=== PATIENT | male | born 1960 | race Caucasian/White ===

== ENCOUNTER 2017-11-11 07:16 | Emergency (ER) | payer OTHER, SELFPAY ==
[2017-11-11 07:18] VITALS: BP 167/97; PULSE 61; RESP 15; TEMP 36.2; O2SAT 98; BMI 25.7
--- NOTE | 2017-11-11 07:31 | CT_ITS ---
STUDY: CT BRAIN WITHOUT CONTRAST REASON FOR EXAM: Male, 56 years old. Headaches. Photophobia with nausea and vomiting. History of migraines. RADIATION DOSAGE (If Supplied By Facility): CTDIvol = ( 60.81 ) mGy, DLP = ( 1135.5 ) mGycm TECHNIQUE: Transaxial CT imaging of the brain was performed without administration of intravenous contrast material. Individualized dose optimization techniques were used for this CT. COMPARISON: None. FINDINGS: Normal soft tissue structures. Normal calvarium. Normal size ventricles and extra-axial spaces for the patient's age. Normal white matter tracts of the cerebral hemispheres. Normal basal ganglia and thalami. Normal brainstem. Normal cerebellum. There is no intracranial hemorrhage. There are no findings of an acute ischemic infarction. Atherosclerotic plaques in the cavernous portions of the internal carotid arteries bilaterally. Mild mucosal thickening of maxillary sinuses bilaterally. Partial opacification of the ethmoid sinuses. CT/Brain/Head without Contrast IMPRESSION: Sinusitis. Electronically Signed: Ricky Farfan MD at 8:37 EDT Tel [phone], Service support ,
[2017-11-11 07:52] LABS: Absolute Lymphocyte Count 1.03 X10^3/ul (0.83-4.51); Absolute Neutrophil Count 1.3 X10^3/uL (2.0-7.7); Basophil# 0.01 X10^3/uL; Basophil% 0.3 % (0-1); Eosinophils% 3.4 % (0-5); Hematocrit 39.5 % (40-54); Hemoglobin 13.4 g/dl (13.0-16.5); Lymphocyte # 1.03 X10^3/ul (4.0); Lymphocyte % 35.2 % (19-41); Mean Corp Hgb Conc 33.9 g/gl (32-36); Mean Corpuscular Volume 88.6 fL (80-94); Mean Platelet Vol. 9.7 fl (6.2-12.0); Monocyte# 0.46 X10^3/uL; Monocyte% 15.7 % (0-10); Neutrophil # 1.32 X10^3/uL (2.7-7.7); Neutrophil % 45.1 % (47-70); Platelet Count 120 K/mm3 (150-450); RBC Distribution Width CV 12.7 % (11.6-14.6); RBC Distribution Width SD 40.6 fl (35.1-43.9); Red Blood Count 4.46 M/mm3 (4.6-6.2); White Blood Count 2.9 K/mm3 (4.4-11.0)
[2017-11-11 07:53] LABS: POSITIVE COUNT NO; POSITIVE DIFFERENTIAL NO; POSITIVE MORPHOLOGY NO
[2017-11-11 08:01] LABS: Anion Gap 4 (5-15); BUN 13 mg/dL (7-18); BUN/Creat Ratio 12.1 RATIO (10-20); Calcium,Total 8.7 mg/dL (8.5-10.1); Chloride 105 mmol/L (98-107); Creatinine, Serum 1.07 mg/dL (0.70-1.30); EST Glomerular Filtration Rate 76 mL/min (>60); Est Glom Filt Rate - Afr Amer 91 mL/min (>60); Estimated Creatinine Clearance 88.56 ml/min; Glucose 99 mg/dL (74-106); Potassium 4.1 mmol/L (3.5-5.1); Sodium Level 139 mmol/L (136-145)
--- NOTE | 2017-11-11 09:02 | ED.DCSUM_ITS ---
- ER Visit Summary Date of Service: 11/11/17 Chief Complaint: Severe right sided head pain with neck pain and photophobia History of Present Illness: The patient is a 56 M who presents with severe right -sided headache. Light exacerbates his pain. There is no difference with change in position. He denies double vision, blurred vision loss of vision. He denies rhinorrhea, earache or sore throat presently. He was prescribed azithromycin 1 week ago for sore throat. He states he was ill several days before that. He denies rash. He does complain of neck pain and stiffness. He denies any cardiac respiratory symptoms. He does complain of nausea and had vomiting this morning. He denies dysuria, frequency, urgency hematuria. He denies any motor or sensory deficit. He states his balance is off. He states it is not lightheadedness but his balance is off. There is no family history of subarachnoid hemorrhage. Physical Examination: Blood pressure is elevated 148/80. Head is atraumatic normocephalic. Pupils are equal round reactive. Extraocular muscles are intact. Optic exam reveals no papilledema. TMs are pearly white with landmarks noted. Nares patent with no drainage. He reports tenderness to palpation of the right frontal and maxillary sinus. Posterior pharynx without erythema or exudate. Uvula is midline. There is no dysphonia or dysphasia. Trachea is midline. There is no stridor with auscultation of the neck. There is no nuchal rigidity or meningeal findings. Heart is regular without murmur, gallop or rub. S1 and S2 are normal. Lungs are clear to auscultation with good movement of air bilaterally. Abdomen is soft nontender. Patient is alert and oriented ?3. Motor is 5 over 5. Sensory is intact. DTRs are symmetric with no clonus or Babinski sign. Cranial 2 through 12 are intact. Cerebellar testing is normal. Gait was observed and normal. Test Results: White count is 2.9 thousand with no shift. Electronic panel is normal. CT of the head per my review reveals trivial amount of fluid in the left maxillary sinus. There is no acute process noted. Formal radiology review reveals no contraindication to lumbar puncture. SF results are unremarkable. Protein and glucose are normal. There is 1 white cell with no red cells. Emergency Department Course and Treatment: To evaluate patient's headache which is the worst she has had. The fact he complains of photophobia and no improvement with appropriate treatment a CT of the head was obtained. Also obtain baseline blood work i.e. CBC and BMP. Treatment Plan: Since patient CAT scan has no contra indication to spinal tap he was explained the benefits of spinal tap. He requested to speak with his was a position. After given opportunity ask questions and speak with his he signed consent. Spinal fluid analysis was unremarkable. He was treated with 25 mg of Benadryl IV push, 30 minutes Toradol IV push and 10 mg of Reglan IV push. I was informed at 1310 that he feels markedly better would like to go home. Disposition: To home in stable improved condition Impression: Acute severe cephalgia secondary to migraine This note was generated with [employer] dictation software. It may contain incorrect words, spelling, and punctuation that were not noted in review of the chart prior to signing ED Disposition - Plan for ED Patient: Disposition: Home or Assisted Living Chief Complaint: Headache Referrals: Glen Irvin MD [Primary Care Provider] - As Needed
--- NOTE | 2017-11-11 10:40 | RAD_ITS ---
PROCEDURE: Fluoroscopic guided Lumbar Puncture. DATE: November 11, 2017. CLINICAL INDICATION: Headaches and neck stiffness. PHYSICIAN: Ricky Farfan M.D. MEDICATIONS: 1% lidocaine administered subcutaneously for local anesthesia. ACCESS SITE: Lower posterior back. NEEDLE: 22-gauge spinal needle. SPECIMEN: Approximately 10 mL clear]CSF fluid. FLUOROSCOPY TIME (if supplied): (1:42) minutes/seconds COMPLICATIONS: None immediate. The risks, benefits, and alternatives to the procedure were explained to the patient. The specific risks of bleeding, infection, and neurovascular injury were detailed and accepted. Witnessed informed consent was obtained. The patient was placed on the fluoroscopic table in the prone position. The level for needle entry was determined and marked. The overlying skin was cleaned and prepped in the usual sterile fashion. 2% lidocaine was administered subcutaneously for local anesthesia. Under fluoroscopic guidance a 22-gauge spinal needle was advanced. The thecal sac was entered at the L3- L4 vertebral level. The inner stylet was removed. There was spontaneous flow of clear CSF fluid. The patient was placed in a reversed Trendelenburg position. Approximately 10 mL of cerebrospinal fluid was collected using gravity. The specimen was collected and submitted to the laboratory for further evaluation. The needle was withdrawn,. Hemostasis was achieved and a sterile dressing placed. The patient tolerated the procedure well without any immediate complications. The patient was placed supine with head elevated and returned to the floor in stable condition. RAD/Fluoro Guided Lumbar Puncture IMPRESSION: Successful fluoroscopic-guided lumbar puncture. Electronically Signed: Ricky Farfan MD at 11:32 EDT Tel [phone], Service support ,
[2017-11-11 11:40] LABS: Body Fluid Polynuclear WBC # 0.001 10^3/uL; Total Cell Count CSF 0.001 10^3/uL (0.000-0.000); White Count, CSF 0.001 10^3/uL (0.000-0.000)
[2017-11-11 12:02] LABS: Appearance CSF (character) CLEAR (Clear); Auto B Fluid Analyzer BKGD Ct COUNTS W/IN LIMITS (W/IN LIMITS); CSF Color COLORLESS (Colorless); Tested Tube # 3
[2017-11-11 12:03] LABS: Body Fluid QC Type(s) BF1Q; RBC Count, Spinal Fluid 0 /mm-3 (None seen)
[2017-11-11] MEDS: DiphenhydrAMINE 50 MG/ML Syringe 25 MG IV (12:29)
[2017-11-11] MEDS: Ketorolac 30 MG/ML Syringe IV (12:29)
[2017-11-11] MEDS: Metoclopramide 10 MG/2 ML Vial IV (12:29)
--- NOTE | 2017-11-11 13:19 | ED.VISSUMM ---
- ER Visit Summary Date of Service: 11/11/17 Chief Complaint: [] History of Present Illness: The patient is a 56 M [] Physical Examination: [] Test Results: [] Emergency Department Course and Treatment: [] Treatment Plan: [] Disposition: [] Impression: [] This note was generated with [employer] dictation software. It may contain incorrect words, spelling, and punctuation that were not noted in review of the chart prior to signing ED Disposition - Plan for ED Patient: Disposition: Home or Assisted Living Chief Complaint: Headache Instructions: ED Headache Migraine Referrals: Glen Irvin MD [Primary Care Provider] - As Needed
[2017-11-11 13:22] LABS: Glucose Spinal Fluid 49 mg/dL (40-75)
[2017-11-11 13:34] VITALS: BP 141/88; PULSE 63; RESP 14; O2SAT 98
[2017-11-11 14:40] LABS: Pathologist Review Reviewed
== END 2017-11-11 13:35 | disposition home or self-care (01) ==
PROVIDERS: Emergency Provider Emergency Medicine; PCP Family Medicine
DX: G43.909 Migraine, unspecified, not intractable, without status migrainosus (principal); B34.9 Viral infection, unspecified
CPT/HCPCS: 62270; 70450; 77003; 80048; 82945; 84157; 85025; 87070; 87205; 89050; 89051; 96374; 96375; 99283; J7030; A4216

== ENCOUNTER 2017-11-12 15:34 | Emergency (ER) | payer OTHER, SELFPAY ==
[2017-11-12 15:34] VITALS: BP 139/87; PULSE 62; RESP 16; O2SAT 97
[2017-11-12 15:35] VITALS: BP 140/78; PULSE 64; RESP 14; TEMP 36.8; O2SAT 96; BMI 26.3
[2017-11-12] MEDS: Ketorolac 30 MG/ML Syringe IV (16:17)
[2017-11-12] MEDS: proMETHazine 25 MG/ML Syringe 12.5 MG IV (16:17)
[2017-11-12] MEDS: DiphenhydrAMINE 50 MG/ML Syringe 25 MG IV (16:17)
[2017-11-12 17:15] VITALS: BP 134/86; PULSE 59; RESP 16; O2SAT 97
--- NOTE | 2017-11-12 17:18 | ED.DCSUM_ITS ---
- ER Visit Summary Date of Service: 11/12/17 Chief Complaint: Acute cephalgia History of Present Illness: The patient is a 56 M known history of migraine headaches. He was seen and treated in the ER yesterday at that time had a negative CAT scan of his brain and a negative lumbar puncture study. He denies any recent trauma is not on any blood thinners. He denies being positional to the headaches no different than it was before the lumbar puncture. He has had some nausea or vomiting with it. It was a gradual onset on Thursday is basically been consistent except did improve yesterday before he went home and came back worse he denies any sinus congestion. Physical Examination: Well-appearing middle-age male. Vital signs are stable afebrile. HEENT exam dry reactive light. No signs of trauma. Extra motions are intact. No facial trauma. No swelling. Neck nontender no lymphadenopathy. Lungs clear to auscultation. Heart regular rhythm no murmur. Abdomen soft nontender. He is moving all 4 extremities. Neurovascular intact. Out of 5 mortgage funder strength. Neurologically he is awake and alert. No focal motor deficits. No facial droop. Normal speech. Test Results: I reviewed the patient's tests from yesterday. They are unremarkable. I do not feel he needs further testing. He was treated with IV fluids, Toradol, Benadryl and Phenergan. On repeat exam at 1715 he is doing better. I discussion with both him and his who is a physician here at the hospital. They are comfortable with no further testing at this time. He has Toradol prescription at home and also Maxalt. He will also be given a prescription to try Imitrex which is never used in the past. Emergency Department Course and Treatment: [] Treatment Plan: [] Disposition: Discharge to home Impression: Acute cephalgia History of migraine headaches This note was generated with [employer] dictation software. It may contain incorrect words, spelling, and punctuation that were not noted in review of the chart prior to signing ED Disposition - Plan for ED Patient: Chief Complaint: Headache Referrals: Glen Irvin MD [Primary Care Provider] -
--- NOTE | 2017-11-12 17:18 | ED.DEP ---
ED Disposition - Plan for ED Patient: Disposition: Home or Assisted Living Chief Complaint: Headache Instructions: ED Cephalgia Unspecified Prescriptions: Sumatriptan Succinate [Imitrex] 25 mg PO Q4H PRN PRN #10 tab PRN Reason: Headache Referrals: Glen Irvin MD [Primary Care Provider] - 1-2 Days if not improving Additional Instructions: Plenty of fluids and rest. Follow-up your primary care physician if not improving or return to ER feeling worse. May use your Toradol and/or Imitrex or Maxalt to try to relieve her headaches if it returns.
== END 2017-11-12 17:25 | disposition home or self-care (01) ==
PROVIDERS: Emergency Provider Emergency Medicine; PCP Family Medicine
DX: R51 Headache (principal); E03.9 Hypothyroidism, unspecified; Z86.69 Personal history of other diseases of the nervous system and sense organs
CPT/HCPCS: 96374; 96375; 99284; J7030; A4216

== ENCOUNTER → 2019-09-30 10:44 | Outpatient (CLI) | payer OTHER, SELFPAY ==
[2019-09-30 11:49] LABS: Absolute Lymphocyte Count 1.79 X10^3/uL (0.83-4.51); Absolute Neutrophil Count 4.4 X10^3/uL (2.0-7.7); Basophil# 0.03 X10^3/uL; Basophil% 0.4 % (0-1); Eosinophil# 0.22 X10^3/uL; Eosinophils% 3.1 % (0-5); Hematocrit 41.9 % (40-54); Hemoglobin 14.3 g/dL (13.0-16.5); Lymphocyte # 1.79 X10^3/ul (4.0); Lymphocyte % 24.9 % (19-41); Mean Corp Hgb Conc 34.1 g/dL (32-36); Mean Corpuscular Hgb 31.4 pg (27.0-32.0); Mean Corpuscular Volume 91.9 fL (80-94); Mean Platelet Vol. 9.7 fl (6.2-12.0); Monocyte# 0.68 X10^3/uL; Monocyte% 9.5 % (0-10); NRBC Flagged by Analyzer 0 % (0-5); Neutrophil # 4.44 X10^3/uL (2.7-7.7); Neutrophil % 61.8 % (47-70); Platelet Count 223 K/mm3 (150-450); RBC Distribution Width CV 12.2 % (11.6-14.6); RBC Distribution Width SD 40.9 fl (35.1-43.9); Red Blood Count 4.56 M/mm3 (4.6-6.2); White Blood Count 7.2 K/mm3 (4.4-11.0)
[2019-09-30 12:12] LABS: AST(SGOT) 41 U/L (15-37); Alanine Aminotransfer ALT/SGPT 72 U/L (16-61); Alkaline Phosphatase 90 U/L (45-117); Anion Gap 6 (5-15); BUN 16 mg/dL (7-18); BUN/Creat Ratio 14.8 RATIO (10-20); Calcium,Total 8.9 mg/dL (8.5-10.1); Chloride 104 mmol/L (98-107); Creatinine, Serum 1.08 mg/dL (0.70-1.30); EST Glomerular Filtration Rate 74 mL/min (>60); Est Glom Filt Rate - Afr Amer 90 mL/min (>60); Globulin 3.9 g/dL (2.2-4.2); Glucose 84 mg/dL (74-106); PSA,Total- Diagnostic 0.45 ng/mL (0.0-4.0); Potassium 4.2 mmol/L (3.5-5.1); Protein, Total 7.9 g/dL (6.4-8.2); Sodium Level 139 mmol/L (136-145); Thyroid Stim Hormone (TSH) 3.35 uIU/mL (0.358-3.74)
[2019-10-03 04:06] LABS: Alternaria alternata <0.10 kU/L (Class 0); Bermuda Grass <0.10 kU/L (Class 0); Bluegrass, Kentucky <0.10 kU/L (Class 0); Cat Hair/Dander, Standard <0.10 kU/L (Class 0); D farinae Mite 4.63 kU/L (Class IV); D pteronyssinus 2.81 kU/L (Class III); Dog Epithelia <0.10 kU/L (Class 0); Elm, American White <0.10 kU/L (Class 0); Oak, White <0.10 kU/L (Class 0); Plantain, English <0.10 kU/L (Class 0); Ragweed, Short/Common <0.10 kU/L (Class 0)
[2019-10-03 11:54] LABS: Mouse Urine <0.10 kU/L (Class 0)
== END ==
PROVIDERS: PCP Family Medicine Geriatric Medicine; Referring Provider Family Medicine Geriatric Medicine; Visit Provider Family Medicine Geriatric Medicine
DX: N40.0 Benign prostatic hyperplasia without lower urinary tract symptoms (principal); T78.40XA Allergy, unspecified, initial encounter; R53.83 Other fatigue
CPT/HCPCS: 36415; 80053; 84153; 84443; 85025; 86003

== ENCOUNTER 2020-01-13 10:14 | Emergency (ER) | payer OTHER, SELFPAY ==
[2020-01-13 10:15] VITALS: BP 146/58; PULSE 75; RESP 17; TEMP 36.7; O2SAT 96; BMI 27.8
--- NOTE | 2020-01-13 10:47 | ED.VIS.GEN ---
History of Present Illness Chief Complaint: General Illness Narrative: Patient is a 59-year-old male with a past medical history of hypothyroidism who presents to the emergency department for generalized body aches, sore throat over the past 3 to 4 days. He denies known sick contacts. He was concerned about coronavirus. States he feels like he has the flu but has never had this in January. He does have summertime allergies and has some congestion which is no worse than normal. No significant cough or shortness of breath. No chest pain. No ear pain. Has not had any rashes. He does have chronic diarrhea which is at its baseline currently. No urinary symptoms. He has been mildly nauseous but has not been vomiting. He states that he breaks out into cold sweats at times. He has not taken his temperature. He has been treating himself with Motrin for the body aches. He has not taken this today. He does not know of any sick contacts although his does work in the hospital. Past Medical History - Allergies and Home Meds Allergies/Adverse Reactions: Allergies Corticosteroids (Glucocorticoids) Adverse Reaction (Verified 01/13/20 10:14) Other Primary Care Physician: Mk Singh Chi, MD [Primary Care Provider] - Prior records reviewed: Yes Past Medical History: - - Hypothyroidism, seasonal allergies Smoking Status: Never smoker Review of Systems All systems negative except as indicated General: Reports: Chills, Fever - Subjective, Sweats Eyes: Denies: Visual changes - bilaterally, Diplopia ENT: Reports: Sore throat. Denies: Bilateral ear pain, Rhinorrhea Cardiovascular: Denies: Chest pain, Palpitations Respiratory: Denies: Dyspnea, Cough, Dyspnea on exertion Gastrointestinal: Reports: Nausea. Denies: Abdominal pain, Vomiting, Diarrhea, Melena, Hematochezia Genitourinary: Denies: Dysuria, Hematuria, Frequency Musculoskeletal: Denies: Back pain, Extremity Pain Skin: Denies: Rash, Wounds Neurological: Reports: Headache. Denies: Weakness, Numbness Physical Exam Vital Signs/Narrative: Vital Signs Temp Pulse Resp BP Pulse Ox 01/13/20 10:15 98.0 F 75 17 146/58 H 96 Inital Vital Signs reviewed: Yes General: Well nourished, Well developed, No Acute Distress Head: Normocephalic, Atraumatic Eyes: Perrl, EOMI ENT: Moist mucous membranes, No rhinorrhea, - - Posterior oropharynx is erythematous. No oral lesions or swelling present. No lymphadenopathy on external exam. S palpated. Neck: Supple, Nontender Cardiovascular: Regular rate, Regular rhythm, No murmurs Respiratory: No distress, CTA bilaterally, Chest nontender Abdomen: Soft, Nontender, Nondistended, Normal bowel sounds Back: Nontender, Normal Inspection Extremities: Nontender, No edema Skin: Normal color, No rash Neurological: Alert, Oriented x3, Cranial nerves II-XII grossly intact, Normal Strength, Normal Sensation Psychological: Normal affect, Normal Mood Diagnostic/Tx/Re-eval - Medical Decision Making Patient presents the emerge department for body aches, chills and subjective fevers. He has a mild headache with a sore throat. No neck pain or stiffness. Given the what sounds like rigors will check basic lab work along with blood cultures. Most likely viral exanthem. Will check coronavirus but given the history of sore throat will check a rapid strep test. He otherwise appears nontoxic. Vital signs are within normal limits. Patient's rapid strep test was negative. Coronavirus test is pending. Will discharge home at this time as he is well-appearing. Will contact if results are positive. He understands he needs to quarantine until results are back. Otherwise lab work did not reveal any significant acute abnormality. His liver enzymes are very mildly elevated. Did discuss this with him which he was aware of previously. He states he has had fatty liver disease before. At this time will discharge home in stable condition. Most likely viral symptoms causing his chills and sore throat. He needs to follow-up with his PCP. If he develops any chest pain, shortness of breath difficulty swallowing or breathing he needs to return to the emergency department immediately. He understands and is agreeable with this plan. ED Disposition - Plan for ED Patient: Disposition: Home or Assisted Living Diagnosis: Sore throat, Chills (without fever), Headache Instructions: ED Pharyngitis Viral, Self-Care for Headaches Referrals: Mk Singh Chi, MD [Primary Care Provider] - 2 Days
[2020-01-13 11:23] LABS: Absolute Lymphocyte Count 1.54 X10^3/uL (0.83-4.51); Basophil# 0.03 X10^3/uL; Basophil% 0.5 % (0-1); Eosinophil# 0.25 X10^3/uL; Eosinophils% 3.8 % (0-5); Hematocrit 42.5 % (40-54); Hemoglobin 14.1 g/dL (13.0-16.5); Lymphocyte # 1.54 X10^3/ul (4.0); Lymphocyte % 23.4 % (19-41); Mean Corp Hgb Conc 33.2 g/dL (32-36); Mean Corpuscular Hgb 30.9 pg (27.0-32.0); Mean Corpuscular Volume 93.2 fL (80-94); Mean Platelet Vol. 9.7 fl (6.2-12.0); Monocyte# 0.77 X10^3/uL; Monocyte% 11.7 % (0-10); NRBC Flagged by Analyzer 0 % (0-5); Neutrophil # 3.96 X10^3/uL (2.7-7.7); Neutrophil % 60.1 % (47-70); Platelet Count 219 K/mm3 (150-450); RBC Distribution Width CV 12.4 % (11.6-14.6); RBC Distribution Width SD 42.5 fl (35.1-43.9); Red Blood Count 4.56 M/mm3 (4.6-6.2); White Blood Count 6.6 K/mm3 (4.4-11.0)
[2020-01-13 11:38] LABS: ALB/GLOB Ratio 0.9 RATIO (0.9-2.4); AST(SGOT) 55 U/L (15-37); Alanine Aminotransfer ALT/SGPT 155 U/L (16-61); Albumin, Serum 3.8 g/dL (3.2-5.0); Alkaline Phosphatase 85 U/L (45-117); Anion Gap 6 (5-15); BUN 17 mg/dL (7-18); BUN/Creat Ratio 15.3 RATIO (10-20); Calcium,Total 8.8 mg/dL (8.5-10.1); Chloride 104 mmol/L (98-107); Creatinine, Serum 1.11 mg/dL (0.70-1.30); EST Glomerular Filtration Rate 72 mL/min (>60); Est Glom Filt Rate - Afr Amer 87 mL/min (>60); Estimated Creatinine Clearance 82.28 ml/min; Globulin 4.2 g/dL (2.2-4.2); Glucose 122 mg/dL (74-106); Potassium 4.1 mmol/L (3.5-5.1); Sodium Level 138 mmol/L (136-145)
[2020-01-13 12:11] LABS: Lactic Acid 1.5 mmol/L (0.4-1.9)
[2020-01-13 12:50] VITALS: BP 121/87; PULSE 60; RESP 16; O2SAT 97
== END 2020-01-13 12:52 | disposition home or self-care (01) ==
PROVIDERS: Emergency Provider Emergency Medicine; PCP Family Medicine Geriatric Medicine
DX: J02.9 Acute pharyngitis, unspecified (principal); R68.83 Chills (without fever); R51 Headache; E03.9 Hypothyroidism, unspecified
CPT/HCPCS: 80053; 83605; 85025; 87040; 87077; 87635; 87880; 99282; G2023; A4216; U0003

== ENCOUNTER → 2020-01-19 15:35 | Outpatient (CLI) | payer OTHER, SELFPAY ==
[2020-01-13 10:15] VITALS: BMI 27.8
[2020-01-27 03:06] LABS: Lyme IgG P18 Ab Absent (.); Lyme IgG P23 Ab Absent (.); Lyme IgG P28 Ab Absent (.); Lyme IgG P30 Ab Absent (.); Lyme IgG P39 Ab Absent (.); Lyme IgG P41 Ab Absent (.); Lyme IgG P45 Ab Absent (.); Lyme IgG P58 Ab Absent (.); Lyme IgG P66 Ab Absent (.); Lyme IgG P93 Ab Absent (.); Lyme IgM P23 Ab Absent (.); Lyme IgM P39 Ab Absent (.); Lyme IgM P41 Ab Absent (.)
[2020-01-27 03:46] LABS: Lyme IgG WB Interpretation Negative (.); Lyme IgM WB Interpretation Negative (.)
== END ==
PROVIDERS: PCP Family Medicine Geriatric Medicine; Visit Provider Family Medicine Geriatric Medicine
DX: A69.20 Lyme disease, unspecified (principal)
CPT/HCPCS: 36415; 86617

== ENCOUNTER → 2020-02-20 09:00 | Outpatient (CLI) | payer OTHER, SELFPAY ==
[2020-02-05 07:23] VITALS: BMI 27.6
== END ==
PROVIDERS: PCP Family Medicine Geriatric Medicine; Referring Provider Internal Medicine Critical Care Medicine; Visit Provider Internal Medicine Critical Care Medicine
DX: Z46.89 Encounter for fitting and adjustment of other specified devices (principal)
CPT/HCPCS: 98960; G0463

== ENCOUNTER → 2020-03-01 20:24 | Outpatient (CLI) | payer OTHER, SELFPAY ==
[2020-02-05 07:23] VITALS: BMI 27.6
== END ==
PROVIDERS: PCP Family Medicine Geriatric Medicine; Visit Provider Internal Medicine Critical Care Medicine
DX: G47.33 Obstructive sleep apnea (adult) (pediatric) (principal)
CPT/HCPCS: 95811

== ENCOUNTER → 2020-05-16 11:48 | Outpatient (CLI) | payer OTHER, SELFPAY ==
[2020-05-16 11:40] VITALS: BMI 27.6
[2020-05-16 12:15] LABS: Absolute Neutrophil Count 3.2 X10^3/uL (2.0-7.7); Basophil# 0.02 X10^3/uL; Basophil% 0.3 % (0-1); Eosinophil# 0.23 X10^3/uL; Hematocrit 40.3 % (40-54); Hemoglobin 13.6 g/dL (13.0-16.5); Mean Corp Hgb Conc 33.7 g/dL (32-36); Mean Corpuscular Hgb 31.3 pg (27.0-32.0); Mean Corpuscular Volume 92.6 fL (80-94); Mean Platelet Vol. 9.3 fl (6.2-12.0); Monocyte# 0.66 X10^3/uL; Monocyte% 11.5 % (0-10); NRBC Flagged by Analyzer 0 % (0-5); Neutrophil # 3.19 X10^3/uL (2.7-7.7); Neutrophil % 55.9 % (47-70); Platelet Count 196 K/mm3 (150-450); RBC Distribution Width SD 41.1 fl (35.1-43.9); Red Blood Count 4.35 M/mm3 (4.6-6.2); White Blood Count 5.7 K/mm3 (4.4-11.0)
[2020-05-16 12:29] LABS: ALB/GLOB Ratio 0.9 RATIO (0.9-2.4); AST(SGOT) 37 U/L (15-37); Alanine Aminotransfer ALT/SGPT 70 U/L (16-61); Albumin, Serum 3.7 g/dL (3.2-5.0); Alkaline Phosphatase 79 U/L (45-117); Anion Gap 4 (5-15); BUN 15 mg/dL (7-18); BUN/Creat Ratio 12.3 RATIO (10-20); Calcium,Total 8.7 mg/dL (8.5-10.1); Chloride 106 mmol/L (98-107); Creatinine, Serum 1.22 mg/dL (0.70-1.30); EST Glomerular Filtration Rate 64 mL/min (>60); Est Glom Filt Rate - Afr Amer 78 mL/min (>60); Globulin 3.9 g/dL (2.2-4.2); Glucose 87 mg/dL (74-106); Potassium 4.4 mmol/L (3.5-5.1); Protein, Total 7.6 g/dL (6.4-8.2); Sodium Level 139 mmol/L (136-145)
== END ==
PROVIDERS: PCP Family Medicine Geriatric Medicine; Visit Provider Family Medicine Geriatric Medicine
DX: R10.9 Unspecified abdominal pain (principal)
CPT/HCPCS: 36415; 80053; 85025

== ENCOUNTER → 2020-05-16 12:06 | Outpatient (CLI) | payer OTHER, SELFPAY ==
[2020-05-16 11:40] VITALS: BMI 27.6
--- NOTE | 2020-05-16 12:09 | CT_ITS ---
STUDY: CT ABDOMEN AND PELVIS WITH CONTRAST REASON FOR EXAM: Male, 59 years old. RLQ PAIN. PRIOR APPY AND RHYS RADIATION DOSAGE (If Supplied By Facility): CTDIvol = ( 17.19 ) mGy, DLP = ( 958.66 ) mGycm TECHNIQUE: Transaxial images were obtained from the dome of the diaphragm to the symphysis pubis with oral contrast. Oral and amp; IV Gastrografin and amp; 100mL Isovue-300 was administered. Sagittal and coronal images were reconstructed. Individualized dose optimization techniques were used for this CT. COMPARISON: Comparison is made with prior study dated 07/13/2014. FINDINGS: The visualized lung bases are unremarkable. The visualized portions of the heart are within normal limits. There is decreased attenuation of the liver consistent with steatosis. Hepatomegaly. There are surgical clips in the gallbladder fossa consistent with a prior cholecystectomy. Normal spleen. Normal pancreas. Normal bilateral adrenal glands. Normal right kidney. Normal left kidney. Normal visualized stomach. Normal small intestine. Normal colon. The patient is status post appendectomy. Normal abdominal aorta. Normal inferior vena cava. There is borderline retroperitoneal lymphadenopathy with enlarged nodes no greater than 10mm in the short axis diameter. Normal urinary bladder. There is a left-sided inguinal hernia containing adipose tissue. There are mild degenerative changes of the visualized lumbar spine. CT/Abdomen/Pelvis WITH Contrast IMPRESSION: Hepatomegaly. Diffuse fatty infiltration of the liver. Electronically Signed: Ricky Farfan, at 14:43 EST , Service support ,
== END ==
PROVIDERS: PCP Family Medicine Geriatric Medicine; Referring Provider Family Medicine Geriatric Medicine; Visit Provider Family Medicine Geriatric Medicine
DX: R10.9 Unspecified abdominal pain (principal)
CPT/HCPCS: 74177; Q9967

== ENCOUNTER → 2020-07-03 09:15 | Outpatient (CLI) | payer OTHER, SELFPAY ==
[2020-05-16 11:40] VITALS: BMI 27.6
[2020-05-25 12:27] VITALS: BMI 28.0
--- NOTE | 2020-07-03 09:16 | US_ITS ---
STUDY: ABDOMINAL ULTRASOUND - RIGHT UPPER QUADRANT REASON FOR VISIT: Male, 59 years old FATTY LIVER TECHNIQUE: Ultrasound evaluation of the right upper quadrant was performed with real-time and static lindsey-scale imaging. TECHNICAL QUALITY: Adequate. COMPARISON: Comparison is made with prior CT scan of the abdomen dated 05/16/2020. FINDINGS: Liver: The liver is enlarged and measures 22.8 cm. There is increased echogenicity consistent with fatty infiltration. The bile ducts are within normal limits. There is hepatic color flow. The direction of portal flow is hepatopetal. There is no demonstrated mass lesion. Gallbladder: The patient is status post cholecystectomy. Common Bile Duct (C.B.D.): The common bile duct measures 3.3 mm. Pancreas: Normal size of the head, body and tail of the pancreas. There is increased echogenicity of the pancreas. There is a 2.5 cm x 1.6 cm x 0.8 cm hypoechoic nodular density in the region of the head of the pancreas. This was not well-seen on prior CT scan. Right Kidney: Normal size of the right kidney. The right kidney measures 11.7 cm x 6 cm x 5.5 cm. Normal renal cortex. The right cortex measures 1.4 cm. There is no demonstrated renal mass or cyst. There is no right hydronephrosis. IMPRESSION: Hepatomegaly. Fatty infiltration of the liver. Findings suggestive of a 2.5 cm x 1.6 cm x 0.8 cm hypoechoic nodule in the head of the pancreas. A repeat CT scan of the abdomen with pancreas protocol is recommended. Electronically Signed: Ricky Farfan, at 8:46 EST , Service support , STUDY: ABDOMINAL ULTRASOUND - ELASTOGRAPHY REASON FOR VISIT: Male, 59 years old. Hepatomegaly. Fatty infiltration of the liver. TECHNIQUE: Liver stiffness measurements were obtained on a [employer] 85 ultrasound machine using a CA 1-7 probe following the SRU guidelines. 3 measurements were obtained using a 2-D-SWE method. The IQR/M was 9% suggesting a quality data set. TECHNICAL QUALITY: Adequate. COMPARISON: None. FINDINGS: Liver: Hepatomegaly. Fatty infiltration of the liver. Median liver stiffness measured 7.2 kPa. US/Liver IMPRESSION: Liver stiffness measures 7.2 kPa compatible with F2/F 3 Metavir score. This is in keeping with compensated advanced chronic liver disease. Electronically Signed: Ricky Farfan, at 8:48 EST , Service support ,
== END ==
PROVIDERS: PCP Family Medicine Geriatric Medicine; Referring Provider Family Medicine Geriatric Medicine; Visit Provider Family Medicine Geriatric Medicine
DX: K76.0 Fatty (change of) liver, not elsewhere classified (principal)
CPT/HCPCS: 76705; 76981

== ENCOUNTER → 2020-07-27 13:42 | Outpatient (CLI) | payer OTHER, SELFPAY ==
[2020-05-25 12:27] VITALS: BMI 28.0
[2020-07-27 13:00] VITALS: BMI 27.4
[2020-07-30 08:07] LABS: HEPATITIS B SURFACE AG Negative (Negative); Hepatitis A AB, Total Positive (Negative); Hepatitis A IgM Antibody Negative (Negative); Hepatitis B Core AB IgM Negative (Negative); Hepatitis B Core Ab Total Negative (Negative); Hepatitis C Ab 0.2 s/co ratio (0.0-0.9)
[2020-07-30 13:18] LABS: Hep B Surface Antibodies Non Reactive (.)
== END ==
PROVIDERS: PCP Family Medicine Geriatric Medicine; Referring Provider Family Medicine Geriatric Medicine; Visit Provider Family Medicine Geriatric Medicine
DX: K76.9 Liver disease, unspecified (principal)
CPT/HCPCS: 36415; 86704; 86705; 86706; 86708; 86709; 86803; 87340

== ENCOUNTER 2020-09-21 15:00 | Outpatient (RCR) | payer OTHER, SELFPAY ==
[2020-07-27 13:00] VITALS: BMI 27.4
[2020-09-21] MEDS: COVID-19 VACC, MRNA(PFIZER)/PF 30 MCG/0.3 ML SYRINGE IM (07:28)
[2020-10-12] MEDS: COVID-19 VACC, MRNA(PFIZER)/PF 30 MCG/0.3 ML SYRINGE IM (07:25)
== END 2020-09-21 23:59 ==
LOC: IMMUN 15:00
PROVIDERS: PCP Family Medicine Geriatric Medicine; Visit Provider Family Medicine
DX: Z23 Encounter for immunization (principal)
CPT/HCPCS: 0001A; 0002A; 91300

== ENCOUNTER → 2020-10-08 06:54 | Outpatient (CLI) | payer OTHER, SELFPAY ==
[2020-07-27 13:00] VITALS: BMI 27.4
--- NOTE | 2020-10-09 06:52 | PFT ---
INTRODUCTION: The patient is a 59-year-old male that presents for pulmonary function studies secondary to a diagnosis of shortness of breath. Respiratory therapy reports good patient effort. Bronchodilators were used during testing. INTERPRETATION: Forced expiration spirometry demonstrates no evidence of a large airways obstructive ventilatory defect. There was no significant response to aerosolized bronchodilators. Spirograms are of good quality and plateau normally. Body plethysmography was performed and reveals lung volumes to be within normal limits. Diffusing capacity by single breath CO is also within normal limits. IMPRESSION: Grossly normal pulmonary function studies.
== END ==
PROVIDERS: PCP Family Medicine Geriatric Medicine; Referring Provider Nurse Practitioner Acute Care; Visit Provider Nurse Practitioner Acute Care
DX: R06.02 Shortness of breath (principal)
CPT/HCPCS: 94060; 94726; 94729

== ENCOUNTER → 2020-10-19 11:06 | Outpatient (CLI) | payer OTHER, SELFPAY ==
[2020-10-19 12:55] LABS: Absolute Lymphocyte Count 1.45 X10^3/uL (0.83-4.51); Absolute Neutrophil Count 3.5 X10^3/uL (2.0-7.7); Basophil# 0.02 X10^3/uL; Basophil% 0.3 % (0-1); Eosinophil# 0.18 X10^3/uL; Eosinophils% 3.1 % (0-5); Hematocrit 42.3 % (40-54); Hemoglobin 13.7 g/dL (13.0-16.5); Lymphocyte # 1.45 X10^3/ul (0.83-4.51); Lymphocyte % 25.3 % (19-41); Mean Corp Hgb Conc 32.4 g/dL (32-36); Mean Corpuscular Volume 92.6 fL (80-94); Mean Platelet Vol. 11.1 fl (6.2-12.0); Monocyte% 10.5 % (0-10); NRBC Flagged by Analyzer 0 % (0-5); Neutrophil # 3.46 X10^3/uL (2.7-7.7); Neutrophil % 60.6 % (47-70); Platelet Count 211 K/mm3 (150-450); RBC Distribution Width SD 41.2 fl (35.1-43.9); Red Blood Count 4.57 M/mm3 (4.6-6.2); White Blood Count 5.7 K/mm3 (4.4-11.0)
[2020-10-19 13:18] LABS: AST(SGOT) 27 U/L (15-37); Alanine Aminotransfer ALT/SGPT 49 U/L (16-61); Albumin, Serum 3.9 g/dL (3.2-5.0); Alkaline Phosphatase 75 U/L (45-117); Anion Gap 3 (5-15); BUN 16 mg/dL (7-18); BUN/Creat Ratio 15.2 RATIO (10-20); Calcium,Total 8.8 mg/dL (8.5-10.1); Chloride 105 mmol/L (98-107); Creatinine, Serum 1.05 mg/dL (0.70-1.30); EST Glomerular Filtration Rate 76 mL/min (>60); Est Glom Filt Rate - Afr Amer 92 mL/min (>60); Globulin 3.8 g/dL (2.2-4.2); Glucose 78 mg/dL (74-106); PSA,Total - Annual Screen 0.27 ng/mL (0.00-4.00); Potassium 4.1 mmol/L (3.5-5.1); Protein, Total 7.7 g/dL (6.4-8.2); Sodium Level 137 mmol/L (136-145); Thyroid Stim Hormone (TSH) 1.24 uIU/mL (0.358-3.74)
== END ==
PROVIDERS: PCP Family Medicine Geriatric Medicine; Visit Provider Family Medicine Geriatric Medicine
DX: R53.83 Other fatigue (principal); Z12.5 Encounter for screening for malignant neoplasm of prostate
CPT/HCPCS: 36415; 80053; 84153; 84443; 85025; G0103

== ENCOUNTER → 2022-10-31 | Outpatient (CLI) | payer OTHER, SELFPAY ==
[2022-10-31 10:04] LABS: Erythrocyte Sedimentation Rate 11 mm/hr (0-20)
[2022-10-31 10:06] LABS: Absolute Lymphocyte Count 1.01 X10^3/uL (0.83-4.51); Absolute Neutrophil Count 3.2 X10^3/uL (2.0-7.7); Basophil# 0.02 X10^3/uL; Basophil% 0.4 % (0-1); Eosinophils% 2.1 % (0-5); Hematocrit 39.2 % (40-54); Lymphocyte # 1.01 X10^3/ul (0.83-4.51); Lymphocyte % 21.2 % (19-41); Mean Corp Hgb Conc 33.2 g/dL (32-36); Mean Corpuscular Hgb 30.8 pg (27.0-32.0); Mean Corpuscular Volume 92.9 fL (80-94); Mean Platelet Vol. 10.1 fl (6.2-12.0); Monocyte# 0.36 X10^3/uL; Monocyte% 7.6 % (0-10); NRBC Flagged by Analyzer 0 % (0-5); Neutrophil # 3.24 X10^3/uL (2.7-7.7); Neutrophil % 68.1 % (47-70); Platelet Count 177 K/mm3 (150-450); RBC Distribution Width CV 12.5 % (11.6-14.6); RBC Distribution Width SD 42.8 fl (35.1-43.9); Red Blood Count 4.22 M/mm3 (4.6-6.2); White Blood Count 4.8 K/mm3 (4.4-11.0)
[2022-10-31 10:08] LABS: Prothrombin Time (Protime)PT. 13.1 SECONDS (11.7-14.9)
[2022-10-31 10:30] LABS: Hemoglobin A1c 5.1 % (3.8-5.6)
[2022-10-31 10:47] LABS: AST(SGOT) 21 U/L (15-37); Alanine Aminotransfer ALT/SGPT 31 U/L (16-61); Albumin, Serum 3.7 g/dL (3.2-5.0); Alkaline Phosphatase 64 U/L (45-117); Anion Gap 1 (5-15); BUN 14 mg/dL (7-18); BUN/Creat Ratio 13.5 RATIO (10-20); CRP < 2.90 mg/L (0.0-3.0); Calcium,Total 8.9 mg/dL (8.5-10.1); Chloride 106 mmol/L (98-107); Creatinine, Serum 1.04 mg/dL (0.70-1.30); EST Glomerular Filtration Rate 77 mL/min (>60); Est Glom Filt Rate - Afr Amer 93 mL/min (>60); Ferritin 211 ng/mL (26-388); Globulin 3.6 g/dL (2.2-4.2); Glucose 89 mg/dL (74-106); LDH 139 U/L (87-241); Potassium 4.2 mmol/L (3.5-5.1); Protein, Total 7.3 g/dL (6.4-8.2); Sodium Level 136 mmol/L (136-145)
[2022-10-31 11:04] LABS: HIV - WCH Non-Reactive (Nonreactive)
[2022-11-03 14:08] LABS: Endomysial Antibody IgA Negative (Negative); Immunoglobulin A 187 mg/dL (61-437); t-Transglutaminase IgA 5 U/mL (0-3)
[2022-11-03 16:09] LABS: Anti-Centromere B Ab <0.2 AI (0.0-0.9); Anti-Chromatin 0.2 AI (0.0-0.9); Anti-Jo <0.2 AI (0.0-0.9); Anti-Mitochondrial AB <20.0 Units (0.0-20.0); Anti-Scleroderma-70 AB <0.2 AI (0.0-0.9); Anti-dsDNA Ab 11 IU/mL (0-9); RNP Ab 1.1 AI (0.0-0.9); SJOGREN'S Anti-SS-A test 1.1 AI (0.0-0.9); SJOGREN'S Anti-SS-B test < 0.2 AI (0.0-0.9); Smith Ab 0.2 AI (0.0-0.9)
[2022-11-05 16:10] LABS: AFP, Tumor Marker 2.9 ng/mL (0.0-8.4); Albumin 3.7 g/dL (2.9-4.4); Alpha-1-Globulins 0.2 g/dL (0.0-0.4); Alpha-2-Globulins 0.6 g/dL (0.4-1.0); Angiotensin Convert Enzyme 22 U/L (14-82); Anti-Smooth Muscle ABS 21 Units (0-19); Ceruloplasmin 17.9 mg/dL (16.0-31.0); Copper, Serum or Plasma 81 ug/dL (69-132); Dopamine, Pl <30 pg/mL (0-48); Epinephrine, Pl 28 pg/mL (0-62); Gamma Globulin 1.3 g/dL (0.4-1.8); Gastrin, Serum 19 pg/mL (0-115); HEPATITIS B SURFACE AG Negative (Negative); Haptoglobin 157 mg/dL (32-363); Hep C Antibodies Non Reactive (Non Reactive); Hepatitis A IgM Antibody Negative (Negative); Hepatitis B Core AB IgM Negative (Negative); Immunoglobulin A 196 mg/dL (61-437); Immunoglobulin E 35 IU/mL (6-495); Immunoglobulin G 1377 mg/dL (603-1613); Immunoglobulin M 110 mg/dL (20-172); Norepinephrine, Pl 331 pg/mL (0-874); PROEL- TOTAL PROTEIN 6.7 g/dL (6.0-8.5); Perinuclear Ab (P-ANCA) >1:640 titer (Neg:<1:20)
== END | disposition home or self-care (01) ==
PROVIDERS: PCP Family Medicine; Referring Provider Internal Medicine Gastroenterology; Visit Provider Internal Medicine Gastroenterology
DX: R10.9 Unspecified abdominal pain (principal)
CPT/HCPCS: 36415; 80053; 80074; 82105; 82140; 82164; 82384; 82390; 82525; 82728; 82784; 82785; 82941; 83010; 83036; 83516; 83615; 84165; 85025; 85610; 85652; 86140; 86225; 86235; 86255; 86256; 86334; 86703

== ENCOUNTER → 2022-11-01 | Outpatient (CLI) | payer OTHER, SELFPAY ==
[2022-11-07 00:06] LABS: Calprotectin, Stool 24 ug/g (0-120)
[2022-11-07 05:07] LABS: Dopamine, 24Ur 206 ug/24 hr (0-510); Dopamine, UR 258 ug/L (Undefined); Epinephrine, 24Ur 6 ug/24 hr (0-20); Epinephrine, Ur 8 ug/L (Undefined); Norepinephrine, 24Ur 31 ug/24 hr (0-135); Norepinephrine, Ur 39 ug/L (Undefined)
== END | disposition home or self-care (01) ==
LOC: LABSPEC 09:57
PROVIDERS: PCP Family Medicine; Referring Provider Internal Medicine Gastroenterology; Visit Provider Internal Medicine Gastroenterology
DX: R10.9 Unspecified abdominal pain (principal)
CPT/HCPCS: 81050; 82384; 83630; 83993

== ENCOUNTER → 2022-11-14 | Outpatient (CLI) | payer OTHER, SELFPAY ==
--- NOTE | 2022-11-14 07:39 | US_ITS ---
STUDY: ABDOMINAL ULTRASOUND - RIGHT UPPER QUADRANT REASON FOR VISIT: Male, 61 years old fatty liver TECHNIQUE: Ultrasound evaluation of the right upper quadrant was performed with real-time and static lindsey-scale imaging. TECHNICAL QUALITY: Adequate. COMPARISON: Comparison is made with prior study dated July 03, 2020. FINDINGS: Liver: The liver is enlarged and measures 21.1 cm. There is increased echogenicity consistent with fatty infiltration. The bile ducts are within normal limits. There is hepatic color flow. The direction of portal flow is hepatopetal. There is no demonstrated mass lesion. Gallbladder: The patient is status post cholecystectomy. Common Bile Duct (C.B.D.): The common bile duct measures 2.1 mm. Pancreas: Normal size of the head, body and tail of the pancreas. There is increased echogenicity of the pancreas. There is no demonstrated pancreatic mass or cyst. Right Kidney: Normal size of the right kidney. The right kidney measures 10.6 cm x 4.1 cm x 4.5 cm. Normal renal cortex. The right cortex measures 1.2 cm. There is no demonstrated renal mass or cyst. There is no right hydronephrosis. US/Abdomen Limited IMPRESSION: Hepatomegaly and fatty infiltration of the liver. Electronically Signed: Ricky Farfan MD at 13:26 EDT ,
--- NOTE | 2022-11-14 07:39 | US_ITS ---
STUDY: ABDOMINAL ULTRASOUND - ELASTOGRAPHY REASON FOR VISIT: Male, 61 years old. Fatty infiltration of the liver. TECHNIQUE: Liver stiffness measurements were obtained on a Eqlim RS 85 ultrasound machine using a CA 1-7 probe following the SRU guidelines. 3 measurements were obtained using a 2-D-SWE method. TheIQR/M was 7 % suggesting a quality data set. TECHNICAL QUALITY: Adequate. COMPARISON: Comparison is made with prior examination of July 03, 2020. FINDINGS: Liver: Fatty infiltration of the liver. Median liver stiffness measured 7. 5 kPa. Abdomen: There is no demonstrated mass lesion. US/Elastography Parenchyma/Organ IMPRESSION: Liver stiffness measures 7.5 kPa compatible with F2-F3 (Mild to moderate liver fibrosis) Metavir score. Electronically Signed: Ricky Farfan MD at 13:41 EDT ,
== END | disposition home or self-care (01) ==
LOC: US 07:38
PROVIDERS: PCP Family Medicine; Referring Provider Internal Medicine Gastroenterology; Visit Provider Internal Medicine Gastroenterology
DX: R10.9 Unspecified abdominal pain (principal)
CPT/HCPCS: 76705; 76981

== ENCOUNTER → 2022-12-05 | Outpatient (CLI) | payer OTHER, SELFPAY ==
[2022-12-05 11:04] LABS: EXAGEN MAILED SPECIMEN
[2022-12-05 12:41] LABS: Absolute Lymphocyte Count 1.84 X10^3/uL (0.83-4.51); Absolute Neutrophil Count 2.3 X10^3/uL (2.0-7.7); Basophil# 0.03 X10^3/uL; Basophil% 0.6 % (0-1); Eosinophil# 0.18 X10^3/uL; Eosinophils% 3.6 % (0-5); Hematocrit 42.2 % (40-54); Hemoglobin 13.8 g/dL (13.0-16.5); Lymphocyte # 1.84 X10^3/ul (0.83-4.51); Lymphocyte % 36.8 % (19-41); Mean Corp Hgb Conc 32.7 g/dL (32-36); Mean Corpuscular Hgb 30.7 pg (27.0-32.0); Mean Corpuscular Volume 93.8 fL (80-94); Mean Platelet Vol. 10.1 fl (6.2-12.0); Monocyte# 0.66 X10^3/uL; Monocyte% 13.2 % (0-10); NRBC Flagged by Analyzer 0 % (0-5); Neutrophil # 2.27 X10^3/uL (2.7-7.7); Neutrophil % 45.4 % (47-70); Platelet Count 244 K/mm3 (150-450); RBC Distribution Width CV 12.2 % (11.6-14.6); RBC Distribution Width SD 42.4 fl (35.1-43.9)
[2022-12-05 12:43] LABS: Color, Urine Yellow (Yellow); Glucose, Dipstick Normal (Normal); Ketone-Dipstick Negative (Negative); Leukocyte Esterase-Dipstick Negative /ul (Negative); Nitrite-Dipstick Negative (Negative); Occult Blood-Urine 10 /ul (Negative); Protein-Dipstick Negative (Negative); Specific Gravity, Urine 1.015 (1.002-1.030); Urine Bilirubin Dipstick Negative (Negative); Urine Clarity Clear (Clear); Urine Urobilinogen Normal (Normal); Urine pH 6.5 (5.0 - 8.0)
[2022-12-05 12:44] LABS: International Normalized Ratio 0.9; Prothrombin Time (Protime)PT. 12.4 SECONDS (11.7-14.9)
[2022-12-05 12:45] LABS: Partial Thromboplast Time 29.1 Seconds (24.1-36.2)
[2022-12-05 13:04] LABS: Protein, Urine (Random) 15.3 mg/dL (<11.9); Protein:Creat Ratio 88 mg/g CRE (0-200)
[2022-12-05 13:05] LABS: AST(SGOT) 24 U/L (15-37); Alanine Aminotransfer ALT/SGPT 33 U/L (16-61); Albumin, Serum 4.1 g/dL (3.2-5.0); Alkaline Phosphatase 71 U/L (45-117); Anion Gap 5 (5-15); BUN 19 mg/dL (7-18); BUN/Creat Ratio 18.3 RATIO (10-20); Calcium,Total 9.3 mg/dL (8.5-10.1); Chloride 106 mmol/L (98-107); Creatinine, Serum 1.04 mg/dL (0.70-1.30); EST Glomerular Filtration Rate 77 mL/min (>60); Est Glom Filt Rate - Afr Amer 93 mL/min (>60); Glucose 75 mg/dL (74-106); Potassium 4.3 mmol/L (3.5-5.1); Protein, Total 8.1 g/dL (6.4-8.2); Sodium Level 140 mmol/L (136-145)
[2022-12-06 12:08] LABS: Thrombin Time 17.2 sec (0.0-23.0)
[2022-12-10 15:08] LABS: Dilute Prothrombin Time (dPT) 43.1 sec (0.0-47.6); Dilute Russell Viper Venom 45.9 sec (0.0-47.0); Hexagonal Phase Phospholipid 10 sec (0-11); Hexagonal Phase Phospholipid 2 10 sec (0-11); Interpretation Comment: (.); PTT-LA 45.5 sec (0.0-43.5); PTT-LA Mix 43.8 sec (0.0-40.5); Thrombin Time 18.2 sec (0.0-23.0); dPT Confirm Ratio 1.18 Ratio (0.00-1.34)
== END | disposition home or self-care (01) ==
LOC: MTLAB 10:02
PROVIDERS: PCP Family Medicine; Referring Provider Internal Medicine Rheumatology; Visit Provider Internal Medicine Rheumatology
DX: R76.8 Other specified abnormal immunological findings in serum (principal); E03.9 Hypothyroidism, unspecified
CPT/HCPCS: 36415; 80053; 81002; 82570; 84156; 85025; 85598; 85610; 85670; 85730

== ENCOUNTER → 2023-04-20 | Outpatient (CLI) | payer OTHER, SELFPAY ==
[2023-04-20 07:04] LABS: Color, Urine Yellow (Yellow); Glucose, Dipstick Normal (Normal); Ketone-Dipstick Negative (Negative); Leukocyte Esterase-Dipstick Negative /ul (Negative); Nitrite-Dipstick Negative (Negative); Occult Blood-Urine 50 /ul (Negative); Protein-Dipstick Negative (Negative); Urine Bilirubin Dipstick Negative (Negative); Urine Clarity Clear (Clear); Urine Urobilinogen Normal (Normal)
[2023-04-20 07:08] LABS: Absolute Lymphocyte Count 1.65 X10^3/uL (0.83-4.51); Absolute Neutrophil Count 4.5 X10^3/uL (2.0-7.7); Basophil# 0.03 X10^3/uL; Basophil% 0.4 % (0-1); Eosinophil# 0.27 X10^3/uL; Eosinophils% 3.8 % (0-5); Hematocrit 44.5 % (40-54); Hemoglobin 14.4 g/dL (13.0-16.5); Lymphocyte # 1.65 X10^3/ul (0.83-4.51); Lymphocyte % 23.3 % (19-41); Mean Corp Hgb Conc 32.4 g/dL (32-36); Mean Corpuscular Hgb 29.7 pg (27.0-32.0); Mean Corpuscular Volume 91.8 fL (80-94); Monocyte# 0.66 X10^3/uL; Monocyte% 9.3 % (0-10); NRBC Flagged by Analyzer 0 % (0-5); Neutrophil # 4.45 X10^3/uL (2.7-7.7); Neutrophil % 62.9 % (47-70); Platelet Count 207 K/mm3 (150-450); RBC Distribution Width CV 12.9 % (11.6-14.6); RBC Distribution Width SD 43.1 fl (35.1-43.9); Red Blood Count 4.85 M/mm3 (4.6-6.2); White Blood Count 7.1 K/mm3 (4.4-11.0)
[2023-04-20 07:27] LABS: Protein:Creat Ratio 68 mg/g CRE (0-200)
[2023-04-20 07:28] LABS: AST(SGOT) 24 U/L (15-37); Alanine Aminotransfer ALT/SGPT 38 U/L (16-61); Alkaline Phosphatase 86 U/L (45-117); Anion Gap 5 (5-15); BUN 20 mg/dL (7-18); BUN/Creat Ratio 15.9 RATIO (10-20); Calcium,Total 9.2 mg/dL (8.5-10.1); Chloride 105 mmol/L (98-107); Creatinine, Serum 1.26 mg/dL (0.70-1.30); EST Glomerular Filtration Rate 61 mL/min (>60); Est Glom Filt Rate - Afr Amer 74 mL/min (>60); Globulin 4.2 g/dL (2.2-4.2); Glucose 92 mg/dL (74-106); Potassium 4.2 mmol/L (3.5-5.1); Protein, Total 8.2 g/dL (6.4-8.2); Sodium Level 139 mmol/L (136-145)
== END | disposition home or self-care (01) ==
LOC: LAB 06:09
PROVIDERS: PCP Family Medicine; Referring Provider Internal Medicine Rheumatology; Visit Provider Internal Medicine Rheumatology
DX: M32.9 Systemic lupus erythematosus, unspecified (principal); E03.9 Hypothyroidism, unspecified
CPT/HCPCS: 36415; 80053; 81002; 82570; 84156; 85025

== ENCOUNTER → 2023-07-25 | Outpatient (CLI) | payer OTHER, SELFPAY ==
--- NOTE | 2023-07-25 08:53 | US_ITS ---
STUDY: ABDOMINAL ULTRASOUND - RIGHT UPPER QUADRANT; ELASTOGRAPHY REASON FOR VISIT: Male, 62 years old. NAFLD TECHNIQUE: Ultrasound evaluation of the right upper quadrant was performed with real-time and static lindsey-scale imaging. Point quantification shear wave elastography was performed ([employer]). TECHNICAL QUALITY: Adequate. COMPARISON: Comparison is made with prior study dated November 14, 2022. FINDINGS: Liver: The liver is enlarged and measures 20.1 cm. There is increased echogenicity consistent with fatty infiltration. The bile ducts are within normal limits. There is hepatic color flow. The direction of portal flow is hepatopetal. There is no demonstrated mass lesion. Median liver stiffness measured 6.8 kPa. Gallbladder: The patient is status post cholecystectomy. Common Bile Duct (C.B.D.): The common bile duct measures 4 mm. Pancreas: There is normal echogenicity of the visualized pancreas. There is no demonstrated pancreatic mass or cyst. Right Kidney: Normal size of the right kidney. The right kidney measures 10.6 cm x 6.1 cm x 4.3 cm. Normal renal cortex. The right cortex measures 1.0 cm. There is no demonstrated renal mass or cyst. There is no right hydronephrosis. US/ABD Limited w/ Elastography IMPRESSION: 1. Liver stiffness measures 6.8 kPa compatible with F2-F3 (Mild to moderate liver fibrosis) Metavir score. Electronically Signed: Ricky Farfan MD at 9:54 EST ,
--- OUTSIDE RECORDS SUMMARY | 2023-07-25 08:54 | XMS RPT_ITS | CCD ---
Author Name Unknown Address [address] [place] [address] Organization [facility] Care Team Providers Care Keeper Helper Name Role Phone Agata Shook MD Primary Care Provider Agata Shook MD Primary Care Provider Prasanth ROCHE, Hannah Unavailable Agata Shook MD Primary Care Provider WOLF VILLAR Attending Unavailable AGATA SHOOK Primary Care Unavailable PHYSICIAN, PATIENT UNSURE Primary Care Physician Unavailable Agata Shook MD Primary Care Provider Prasanth ROCHE, Miradyasagar Unavailable DR FRANKLIN KOLB DO Attending Unavailable PHYSICIAN, PATIENT UNSURE Primary Care Kaylee Rader MD, Miradyasagar Unavailable AGATA SHOOK Attending Unavailable AGATA SHOOK Primary Care Unavailable AGATA SHOOK Primary Care Unavailable PANDA GILLIAM Referring Unavailable AGATA SHOOK Primary Care Unavailable EVGENY EID Attending Unavailable AGATA SHOOK Primary Care Unavailable PAM SHEEHAN Referring Unavailable PAM SHEEHAN Attending Unavailable AGATA SHOOK Primary Care Unavailable PRASANTH, VIDYASAGAR Referring UnavailROSAURA Alvarado Attending Unavailable AGATA SHOOK Primary Care Unavailable PRASANTH VIDYASAMERCEDES Referring UnavailAGATA Woodruff Primary Care Unavailable Allergies Allergy Classification Reported Allergen(s) Allergy Type Date of Onset Reaction(s) Facility (6 sources) Glucocorticoid; Translations: [CORTICOSTEROIDS (GLUCOCORTICOIDS)] Drug Allergy 2 Mental Status Change [facility] (20 sources) Ketorolac; Translations: [KETOROLAC TROMETHAMINE] Drug Allergy 8 Intolerance [facility] Work Phone: (20 sources) Lactase; Translations: [LACTASE] Drug Allergy 2 Diarrhea [facility] (20 sources) Glucocorticoid preparation Drug Allergy 2 Mental Status Change [facility] (1 source) Ketorolac; Translations: [ketorolac] Drug Allergy [facility] (1 source) predniSONE; Translations: [prednisone] Drug Allergy [facility] Medications Current Medications Medication Drug Class(es) Dates Sig (Normalized) Sig (Original) azithromycin 250 mg oral tablet (1 source) Macrolide Antimicrobial Start: 09-05-2022 End: 10-01-2022 take 1 tablet by mouth once daily azithromycin (ZITHROMAX Z-KB) 250 mg tablet Take 1 tablet by mouth once daily. 20 tablet 0 09/05/2022 10/01/2022 Discontinued Completed/Discontinued Medications Medication Drug Class(es) Dates Sig (Normalized) Sig (Original) blpfp-V-gxxykbkckwppi (BEANO ORAL) (20 sources) take 1 tablet by cheryl th once daily ftyxo-N-viqygcqxqvpt e (BEANO ORAL) Take 1 tablet by mouth once daily. 0 Active Problems Active Problems Problem Classification Problem Date Documented Da te Episodic/Chronic Allergic reactions (20 sources) Environmental allergy; Translations: [Other allergy status, other than to drugs and biological substances] 07-14-2017 Episodic Anxiety disorders (20 sources) Generalized anxiety disorder; Translations: [Generalized anxiety disorder] Onset: 8 12-11-2017 Chronic Aortic; peripheral; and visceral artery aneurysms (20 sources) Thoracic aortic aneurysm without rupture; Translations: [Thoracic aortic aneurysm, without rupture] Onset: 1 12-31-2020 Chronic Cardiac dysrhythmias (20 sources) Ventricular premature beats; Translations: [Ventricular premature depolarization] Onset: 1 12-31-2020 Chronic Cardiac dysrhythmias (1 source) Palpitations; Translations: [Palpitations] Onset: 3 Episodic Disorders of lipid metabolism (20 sources) Hyperlipidemia; Translations: [Hyperlipidemia, unspecified] Onset: 2 07-14-2017 Chronic Esophageal disorders (20 sources) Gastroesophageal reflux disease; Translations: [Gastro-esophageal reflux disease without esophagitis] Onset: 9 01-31-2019 Chronic Genitourinary symptoms and ill-defined conditions (2 sources) Other microscopic hematuria; Translations: [Nocturia] Onset: 4 Episodic Headache; including migraine (20 sources) Migraine; Translations: [Migraine, unspecified, not intractable, without status migrainosus] Onset: 9 01-31-2019 Chronic Hyperplasia of prostate (20 sources) Benign prostatic hyperplasia; Translations: [Benign prostatic hyperplasia with lower urinary tract symptoms] Onset: 9 01-31-2019 Chronic Immunizations and screening for infectious disease (4 sources) Anti-nuclear factor positive; Translations: [Other specified abnormal immunological findings in serum] 01-19-2023 Episodic Osteoarthritis (20 sources) Osteoarthritis of multiple joints ; Translations: [Polyosteoarthritis, unspecified] Onset: 9 01-31-2019 Chronic Other circulatory disease (1 source) Antineutrophil cytoplasmic antibody positive vasculitis; Translations: [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)] 01-19-2023 Chronic Other gastrointestinal disorders (20 sources) Irritable bowel syndrome; Translations: [Irritable bowel syndrome without diarrhea] 07-14-2017 Chronic Other liver diseases (20 sources) Steatosis of liver; Translations: [Fatty (change of) liver, not elsewhere classified] Onset: 9 01-31-2019 Chronic Residual codes; unclassified (20 sources) Obstructive sleep apnea syndrome; Translations: [Obstructive sleep apnea (adult) (pediatric)] Onset: 8 12-31-2017 Chronic Systemic lupus erythematosus and connective tissue disorders (1 source) Autoimmune disease; Translations: [Systemic involvement of connective tissue, unspecified] 01-19-2023 Chronic Thyroid disorders (20 sources) 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; Translations: [Other specified hypothyroidism] Onset: 3 12-07-2020 Chronic Unclassified (1 source) Aneurysm of ascending aorta without rupture; Translations: [Aneurysm of ascending aorta without rupture] Onset: 1 Unclassified (1 source) Aneurysm of ascending aorta without rupture (HCC); Translations: [Aneurysm of ascending aorta without rupture (HCC)] Onset: 1 Past or Other Problems Problem Classification Problem Date Documented Da te Episodic/Chronic Abdominal hernia (20 sources) Right inguinal hernia ; Translations: [Unilateral inguinal hernia, without obstruction or gangrene, not specified as recurrent] Onset: 01-31-2019 01-31-2019 Episodic Abdominal pain (20 sources) Pain in male pelvis; Translations: [Pelvic and perineal pain] Onset: 02-14-2022 Episodic Biliary tract disease (20 sources) Biliary dyskinesia; Translations: [Other specified diseases of gallbladder] Onset: 09-27-2011 09-27-2011 Episodic Other gastrointestinal disorders (15 sources) Alteration in bowel elimination; Translations: [Change in bowel habit] Onset: 07-13-2018 07-13-2018 Episodic Other gastrointestinal disorders (14 sources) Altered bowel function; Translations: [Change in bowel habit] Onset: 07-13-2018 07-13-2018 Episodic Other screening for suspected conditions (not mental disorders or infectious disease) (20 sources) Coronary artery finding; Translations: [Abnormal findings on diagnostic imaging of heart and coronary circulation] Onset: 02-14-2022 Episodic Residual codes; unclassified (20 sources) Family history of sudden cardiac ; Translations: [Family history of sudden cardiac ] Onset: 12-31-2020 12-31-2020 Episodic Results Test Name Value Interpretation Reference Range Facil ity Vital Signs Date Time Vital Sign Value Performing Clinician Zuhair evans 04-03-2023 12:06-0400 Body height 188 cm Rosaura Munoz APRN.CNP Work Phone: [facility] 04-03-2023 12:06-0400 Body weight 83.01 kg Rosaura Munoz APRN.CNP Work Phone: [facility] 04-03-2023 12:06-0400 Diastolic blood pressure 72 mm[Hg] Rosaura Munoz APRN.CNP Work Phone: [facility] 04-03-2023 12:06-0400 Heart rate 58 /min Rosaura Munoz APRN.CNP Work Phone: [facility] 04-03-2023 12:06-0400 Respiratory rate 18 /min Rosaura Munoz CALENDERER.GENERAL OFFICE ASSOCIATE Work Phone: [facility] 04-03-2023 12:06-0400 SaO2% (BldA) [Mass fraction] 98 % Rosaura Munoz CALENDERER.GENERAL OFFICE ASSOCIATE Work Phone: [facility] 04-03-2023 12:06-0400 Systolic blood pressure 126 mm[Hg] Rosaura Munoz CALENDERER.GENERAL OFFICE ASSOCIATE Work Phone: [facility] 01-19-2023 15:54-0400 Body height 188 cm Agata Shook MD Work Phone: [facility] 01-19-2023 15:54-0400 Body weight 80.29 kg Agata Shook MD Work Phone: [facility] 01-19-2023 15:54-0400 Diastolic blood pressure 73 mm[Hg] Agata Shook MD Work Phone: [facility] 01-19-2023 15:54-0400 Heart rate 56 /min Agata Shook MD Work Phone: [facility] 01-19-2023 15:54-0400 SaO2% (BldA) [Mass fraction] 96 % Agata Shook MD Work Phone: [facility] 01-19-2023 15:54-0400 Systolic blood pressure 118 mm[Hg] Agata Shook MD Work Phone: [facility] 10-01-2022 07:59-0400 Body height 188 cm Evgeny Eid MD Work Phone: [facility] 10-01-2022 07:59-0400 Body weight 85.28 kg Evgeny Eid MD Work Phone: [facility] 10-01-2022 07:59-0400 Diastolic blood pressure 74 mm[Hg] Evgeny Eid MD Work Phone: [facility] 10-01-2022 07:59-0400 Heart rate 56 /min Evgeny Eid MD Work Phone: [facility] 10-01-2022 07:59-0400 Systolic blood pressure 114 mm[Hg] Evgeny Eid MD Work Phone: [facility] 09-29-2022 22:31-0400 Body height [address] FRANKLIN KOLB DO [facility] 09-29-2022 22:31-0400 Body temperature 98.24 [degF] DR FRANKLIN OKLB DO [facility] 09-29-2022 22:31-0400 Body weight 81.[address] FRANKLIN KOLB DO [facility] 09-29-2022 22:31-0400 Diastolic Blood Pressure Non-Invasive [address] FRANKLIN KOLB DO [facility] 09-29-2022 22:31-0400 Heart rate 65 /min DR FRANKLIN KOLB DO [facility] 09-29-2022 22:31-0400 Respiratory rate 16 /min DR FRANKLIN KOLB DO [facility] 09-29-2022 22:31-0400 Systolic Blood Pressure Non-Invasive [address] FRANKLIN KOLB DO [facility] 03-28-2022 07:21-0400 Body height 188 cm Mao Jones MD Work Phone: [facility] 03-28-2022 07:21-0400 Body temperature 97.39 [degF] Mao Jones MD Work Phone: [facility] 03-28-2022 07:21-0400 Body weight 83.55 kg Mao Jones MD Work Phone: [facility] 03-28-2022 07:21-0400 Diastolic blood pressure 70 mm[Hg] Mao Jones MD Work Phone: [facility] 03-28-2022 07:21-0400 Heart rate 60 /min Mao Jones MD Work Phone: [facility] 03-28-2022 07:21-0400 SaO2% (BldA) [Mass fraction] 99 % Mao Jones MD Work Phone: [facility] 03-28-2022 07:21-0400 Systolic blood pressure 117 mm[Hg] Mao Jones MD Work Phone: [facility] 02-24-2022 11:43-0400 Body height 188 cm Agata Shook MD Work Phone: [facility] 02-24-2022 11:43-0400 Body weight 80.74 kg Agata Shook MD Work Phone: [facility] 02-24-2022 11:43-0400 Diastolic blood pressure 71 mm[Hg] Agata Shook MD Work Phone: [facility] 02-24-2022 11:43-0400 Heart rate 54 /min Agata Shook MD Work Phone: [facility] 02-24-2022 11:43-0400 SaO2% (BldA) [Mass fraction] 99 % Agata Shook MD Work Phone: [facility] 02-24-2022 11:43-0400 Systolic blood pressure 112 mm[Hg] Agata Shook MD Work Phone: [facility] 02-14-2022 10:00-0400 Diastolic blood pressure 70 mm[Hg] Maribel Brasher PT Work Phone: [facility] 02-14-2022 10:00-0400 Systolic blood pressure 110 mm[Hg] Maribel Brasher PT Work Phone: [facility] 02-10-2022 15:09-0400 Body height 188 cm Hannah Rader MD Work Phone: [facility] 02-10-2022 15:09-0400 Body weight 78.02 kg Hannah Rader MD Work Phone: [facility] 02-10-2022 15:09-0400 Diastolic blood pressure 77 mm[Hg] Hannah Rader MD Work Phone: [facility] 02-10-2022 15:09-0400 Heart rate 50 /min Hannah Rader MD Work Phone: [facility] 02-10-2022 15:09-0400 SaO2% (BldA) [Mass fraction] 99 % Hannah Rader MD Work Phone: [facility] 02-10-2022 15:09-0400 Systolic blood pressure 124 mm[Hg] Hannah Rader MD Work Phone: [facility] 12-20-2021 10:51-0400 Body height 188 cm Blaise Payton MD Work Phone: [facility] 12-20-2021 10:51-0400 Body weight 83.05 kg Blaise Payton MD Work Phone: [facility] 12-20-2021 10:51-0400 Respiratory rate 18 /min Blaise Payton MD Work Phone: [facility] Encounters Encounter Date Encounter Type Care Provider Facility Start: 07-07-2023 End: 07-07-2023 ambulatory PAM SHEEHAN Facility:[facility] Start: 04-03-2023 End: 04-04-2023 ambulatory HANNAH RADER Facility:[facility] Start: 04-03-2023 End: 04-03-2023 Patient encounter procedure Rosaura Munoz APRN.CNP Work Phone: Cardiology Procedures Date Procedure Procedure Detail Performing Clinician Start: 04-03-2023 Echo tthrc r-t 2d w/wom-mode compl spec&colr d Hannah Rader MD Work Phone: Start: 12-05-2022 Comprehensive metabolic 2000 panel - Serum or Plasma [facility] Start: 12-05-2022 LUPUS ANTICOAGULANT [facility] Start: 12-05-2022 THROMBIN TIME [facility] Start: 10-31-2022 ENDOMYSIAL IGA AB [facility] Start: 10-31-2022 IMMUNOGLOBULINS A/G/M, QN, SER [facility] Start: 10-31-2022 MISCELLANEOUS LAB ORDER [facility] Start: 10-31-2022 TRANSGLUTAMINASE IGA [facility] Start: 03-28-2022 End: 03-28-2022 Liver elastography w/o imag w/i&r Mao Jones MD Work Phone: Start: 03-14-2022 Ct abdomen & pelvis w/contrast material Agata Shook MD Work Phone: Start: 03-12-2022 Lipid 1996 panel - Serum or Plasma Rosaura Munoz APRN.GENERAL OFFICE ASSOCIATE Work Phone: Start: 02-24-2022 Adult depression screening assessment Agata Shook MD Work Phone: Start: 12-20-2021 Urnls dip stick/tablet rgnt auto w/o microscopy Blaise Payton MD Work Phone: Start: 12-06-2020 Adult depression screening assessment [facility] Work Phone: Start: 07-16-2018 Colonoscopy [facility] Work Phone: Plan of Treatment Date Care Activity Detail Author Start: 01-18-2031 Urine microalbumin profile [facility] Start: 03-12-2027 Lipid 1996 panel - Serum or Plasma Lipid Screening [facility] Start: 03-12-2027 LIPID SCREEN LIPID SCREEN [facility] Start: 09-13-2026 PROSTATE CANCER SCREENING DISCUSSION PROSTATE CANCER SCREENING DISCUSSION [facility] Start: 08-23-2026 LIPID SCREEN LIPID SCREEN [facility] Start: 12-05-2025 DIABETES SCREEN DIABETES SCREEN [facility] Start: 12-05-2025 Diabetes Screening Diabetes Screening [facility] Start: 10-31-2025 DIABETES SCREEN DIABETES SCREEN [facility] Start: 03-12-2025 DIABETES SCREEN DIABETES SCREEN [facility] Start: 08-23-2024 DIABETES SCREEN DIABETES SCREEN [facility] Start: 04-03-2024 End: 04-03-2024 ECG COMPLETE ECG COMPLETE ECG Routine Aneurysm of ascending aorta without rupture (HCC) PVC's (premature ventricular contractions) Expected: 04/03/2024, Expires: 04/03/2024 [facility] Work Phone: Immunizations Immunization Date Immunization Notes Care Provider Landry brandt 05-23-2022 influenza, injectabl e, quadrivalent, contains preservative Evgeny Eid MD Work Phone: [facility] Work Phone: 05-23-2022 influenza virus vacc ine, unspecified formulation Rosaura Munoz CALENDERER.GENERAL OFFICE ASSOCIATE Work Phone: [facility] 04-24-2021 influenza, injectabl e, quadrivalent, preservative free [facility] Work Phone: [facility] 01-18-2021 tetanus toxoid, redu romel diphtheria toxoid, and acellular pertussis vaccine, adsorbed [facility] Work Phone: [facility] 01-11-2021 typhoid capsular polysaccharide vaccine [facility] Work Phone: [facility] 10-12-2020 COVID-19 vaccine, ag e 12+ yr (PFIZER-BIONTECH - PURPLE TOP) [facility] Work Phone: [facility] 09-21-2020 COVID-19 vaccine, ag e 12+ yr (PFIZER-BIONTECH - PURPLE TOP) [facility] Work Phone: [facility] 04-06-2020 Influenza, injectabl e, Madin Dupont Canine Kidney, preservative free, quadrivalent [facility] Work Phone: [facility] 04-06-2020 influenza, injectabl e, quadrivalent, contains preservative Agata Shook MD Work Phone: [facility] 04-06-2020 influenza, seasonal, injectable, preservative free [facility] Work Phone: [facility] 01-10-2019 influenza, injectabl e, quadrivalent, contains preservative [facility] Work Phone: [facility] 07-24-2009 novel Influenza-H1N1 -09, live virus for nasal administration [facility] Work Phone: [facility] 10-10-2008 typhoid vaccine, parenteral, other than acetone-killed, dried [facility] Work Phone: [facility] Payers Date Payer Category Payer Unknown MMO MMO [employer] [id number] 2017-Present [phone] [address] [place] [address] PPO [id number] 2017 Unknown [id number] 2017 Unknown [id number] 1960 Unknown [id number] Social History Date Type Detail Facility Start: 08-27-2011 End: 02-24-2022 Tobacco smoking status NHIS Never smoked tobacco [facility] Start: 08-27-2011 End: 02-24-2022 Tobacco use and exposure Smokeless tobacco non-user [facility] Start: 08-23-2021 End: 01-19-2023 Alcohol intake Current drinker of alcohol (finding) [facility] Start: 06-17-2021 History SDOH Alcohol Frequency 2 [facility] Start: 06-17-2021 History SDOH Alcohol Std Drinks 1 [facility] Start: 07-14-2017 History SDOH Alcohol Comment 1 beer every 3-4 weeks [facility] Start: 06-17-2021 History SDOH Social Connections Phone 3 [facility] Start: 06-17-2021 History SDOH Social Connections Get Together 98 [facility] Start: 06-17-2021 History SDOH Physica l Activity DPW 5 [facility] Start: 06-17-2021 History SDOH Physica l Activity MPS 4 [facility] Start: 1960 Sex Assigned At Male [facility] Start: 09-14-2021 End: 09-24-2021 Exposure to SARS-CoV-2 (event) Unable to assess [facility] Start: 10-08-2021 End: 03-28-2022 Exposure to SARS-CoV-2 (event) Not sure [facility] Sex Assigned At Sex [facility] Start: 06-17-2021 End: 01-19-2023 History of Social function [facility] Start: 06-17-2021 End: 01-19-2023 Social connection and isolation panel [facility] How often do you get together with friends or relatives? Patient refused [facility] Do you belong to any clubs or organizations such as buddhism groups, unions, fraternal or athletic groups, or school groups? Yes [facility] Are you now , , , , never or living with a partner? [facility] How often to you hav e a drink containing alcohol? Monthly or less [facility] How many standard dr inks containing alcohol do you have on a typical day? 1 or 2 [facility] How often do you hav e 6 or more drinks on 1 occasion? Never [facility] Do you feel stress - tense, restless, nervous, or anxious, or unable to sleep at night because your mind is troubled all the time - these days [OSQ] Only a little [facility] (I/We) worried wheth er (my/our) food would run out before (I/we) got money to buy more. Never true [facility] In the past 12 month s, was there a time when you were not able to pay the mortgage or rent on time? No [facility] Start: 08-24-2020 Gender identity Identifies as male gender (finding) [facility] Start: 08-24-2020 Sexual orientation Choose not to dis close [facility] Medical Equipment Procedure Code Equipment Code Equipment Origin al Text Equipment Identifier Dates Mesh Surgipro Me dium Clear Polypropylene 2cm Surgical Nonabsorbable Plug - [id number] Start: 02-02-2019 Functional Status Date Assessment Result Facility 09-30-2022 Functional Status Ambulating in orr, Ambulating in room, Awake [facility] Mental Status Date Assessment Result Facility 09-30-2022 Mental Status Orientation Oriented x 4 [facility] Clinical Notes 06-23-2013 to 07-07-2023 Patient InstructionsMarieCharlie pardoisela Sanchez, STEVE.GENERAL OFFICE ASSOCIATE - 04/03/2023 12:00 PM EDTTelephone Encounter - Salma MontgomerySUSAN - 02/03/2023 4:01 PM PERITAgata Shook MD - 01/19/2023 4:03 PM EDT Note Date & Type Note Facility 07-07-2023 Note HNO ID: [id number] Author: Pam Sheehan PA-C Service: ? Author Type: Physician Digital Marketing Consultant Type: Progress Notes Filed: 07/08/2023 1:01 PM Note Text: CHIEF COMPLAINT: Microhematura HPI: 62 year old and is referred for evaluation of micro hematuria found during UA with micro. Denies any gross hematuria. Denies smoking hx. He has a hx of chronic pelvic pain. He has been to pelvic PT with effect He has a hx of kidney stones. He has R flank, R lower abdominal pain (2/10 pain). Denies any recent stones. He has seen Dr. Payton in the past for chronic pelvic pain. He has been on pelvic PT with some effect. He has BPH. He c/o urgency, frequency, weak stream, NTF-2. He has anxiety. He has IBS. AUA Symptom Score Incomplete emptyin Frequency: 4 Intermittency: 5 Urgency: 3 Weak Stream: 4 Strainin Nocturia: 2 Total score: 23 Quality of life due to urinary symptoms: mostly satisfied QOL: 2 PVR: 32 ml (Determine 4 of 8) 1-Duration: years 2-Location: urine 3-Severity: micro 4-Quality: micro 5-Context: Hematuria 6-Timing: constantly 7-Modifying factors: none 8-Associated signs AND symptoms: see above PRESENTING HISTORY: Flank Pain: Yes, right Urinary retention: no Urinary incontinence: no Urinary tract infection: no Renal calculi: yes DATA REVIEW: RECENT IMAGING: CT abdomen/pelvis w/contrast done on 03/14/2022 IMPRESSION: No acute pathology. No mass or lymphadenopathy. RECENT URINALYSIS: UA with micro (today) RBC 5-10 UA on 04/20/2023 Heme positive RECENT URINE CULTURE: none RECENT URINE CYTOLOGY: none RECENT CYSTOSCOPY: > 5 years ago patient PSA HISTORY: PSA (ng/mL) Date Value 07/26/2018 0.17 11/13/2017 0.15 PSA Screening (ng/mL) Date Value 09/13/2021 0.23 Creatinine Date Value Ref Range Status 12/05/2022 1.04 0.6 - 1.3 MG/DL Final MEDICAL HISTORY: PAST MEDICAL HISTORY Diagnosis Date Anxiety Dr. Neal Arthritis left shoulder, neck BPH (benign prostatic hyperplasia) Chest pain Colon polyps 07/2013 repeat in 3 years Environmental allergies Fatty liver disease, nonalcoholic Gluten intolerance Hyperlipidemia Hypothyroid IBS (irritable bowel syndrome) Migraines MAXIMILIANO (obstructive sleep apnea) on CPAP, Dr. Hanks PVC (premature ventricular contraction) Snoring Thoracic aortic aneurysm without rupture (HCC) SURGICAL HISTORY: PAST SURGICAL HISTORY Procedure Laterality Date APPENDECTOMY 12/1976 COLONOSCOPY X3 COLONOSCOPY FLX DX W/COLLJ SPEC WHEN PFRMD 07/20/2013 Colonoscopy COLONOSCOPY FLX DX W/COLLJ SPEC WHEN PFRMD 07/16/2018 Colonoscopy ESOPHAGOGASTRODUODENOSCOPY TRANSORAL DIAGNOSTIC 07/20/2013 EGD LAPAROSCOPY SURG CHOLECYSTECTOMY 11/21/11 Cholecystectomy, lap OTOPLASTY RHINOPLASTY 1994 RPR 1ST INGUN HRNA AGE 4 YRS/> REDUCIBLE 02/02/2019 Hernia repair, inguinal SEPTOPLASTY age 32, complicated by post op bleeding SOCIAL HISTORY: Social History Tobacco Use Smoking status: Never Smokeless tobacco: Never Vaping Use Vaping Use: Never used Substance Use Topics Alcohol use: Yes Comment: 1 beer every 3-4 weeks Drug use: No FAMILY HISTORY Denies a FH of CaP or Bladder Cancer MEDS: Current Outpatient Medications Medication Sig Dispense Refill PREVALITE 4 gram packet Take 1 Packet by mouth once daily. 90 Packet 3 levothyroxine (SYNTHROID) 200 mcg tablet Take 1 tablet by mouth once daily. 30-60 minutes prior to breakfast. 90 tablet 3 hydrOXYzine HCl (ATARAX) 25 mg tablet busPIRone (BUSPAR) 7.5 mg tablet Take 10 mg by mouth two times a day. clonazePAM (KLONOPIN) 0.5 mg tablet as needed. nppat-P-gaeawqizzthfy (BEANO ORAL) Take 1 tablet by mouth once daily. CPAP AutoPAP 15-20 cmH2O (change in settings) HUMIDITY. LIFETIME SUPPLIES. Dx:47.33. 1 Device 0 Current Facility-Administered Medications Medication Dose Route Frequency Provider Last Rate Last Admin perflutren lipid microspheres 1.3 mL in NaCl (PF) 0.9% 10 mL injection (DEFINITY) INTRAVENOUS DIRECTED PRHannah Carlin MD sodium chloride 0.9 % (flush) 10 mL (BD POSIFLUSH) 10 mL INTRAVENOUS DIRECTED PRN Hannah Rader MD REVIEW OF SYSTEMS GENERAL: fatigue HEENT: headaches NECK: Negative for lumps, pain and significant neck swelling RESPIRATORY: Negative for cough, wheezing and shortness of breath CARDIOVASCULAR: Palpitations GI:abdominal discomfort : see above MUSCULOSKELETAL: back pain SKIN: itching PSYCH: sleep disturbance HEMATOLOGY/LYMPHOLOGY: Negative for prolonged bleeding, bruising easily ENDOCRINE: cold intolerance (hypothyroidism) NEURO: Negative for syncope, seizures and paralysis PHYSICAL EXAM: GENERAL: Wnl nutrition, no deformities, healthy appearing HEAD AND NECK: No masses, icterus RESP: NL effort, no retractions or purse-lip breathing ABDOMEN: RLQ abdominal tenderness to palpat (more content not included)... [facility] 04-03-2023 Note HNO ID: [id number] Author: Rosaura Munoz APRN.GENERAL OFFICE ASSOCIATE Service: ? Author Type: Nurse Practitioner Type: Progress Notes Filed: 04/03/2023 4:49 PM Note Text: [facility] [place] [facility] Department of Cardiovascular Medicine SECTION OF CARDIOVASCULAR IMAGING OUTPATIENT VISIT DATE April 03, 2023 OUTPATIENT VISIT TYPE ESTABLISHED PRIMARY CARE PHYSICIAN: Agata Shook [address] [place] [address] [place] [address] REFERRING PHYSICIAN: Hannah Rader [facility] [address] [facility] [id number] CHIEF COMPLAINT: Ascending aortic aneurysm HISTORY OF PRESENT ILLNESS: Mr. Chance is a 62 year old male with PMH significant for hypothyroidism, anxiety, MAXIMILIANO (CPAP), NAFLD, PVCs and asc aortic aneurysm (4.6 cm). who presents today for follow-up visit. He was last seen on 02/10/[address] Rader. Since his last visit, he states that he has been feeling well overall. He feels his heart racing a couple times/week, no symptoms associated with this. Reports this has been ongoing for years, previously worked up, no increase in frequency or severity. He denies chest pain, shortness of breath, orthopnea, cough, edema, palpitations, PND, lightheadedness or syncope. He is not on cardiac medications. No ER visits/hospitalizations or major complaints/concerns. He reports regular activity with hiking a few times/week to go bird watching. Asymptomatic. PAST CARDIAC HISTORY: He has been seen in the past for ascending aortic aneurysm. He was last seen on 02/10/[address] Rader. PAST MEDICAL HISTORY Diagnosis Date Anxiety Dr. Neal Arthritis left shoulder, neck BPH (benign prostatic hyperplasia) Chest pain Colon polyps 07/2013 repeat in 3 years Environmental allergies Fatty liver disease, nonalcoholic Gluten intolerance Hyperlipidemia Hypothyroid IBS (irritable bowel syndrome) Migraines MAXIMILIANO (obstructive sleep apnea) on CPAP, Dr. Hanks PVC (premature ventricular contraction) Snoring Thoracic aortic aneurysm without rupture (HCC) PAST SURGICAL HISTORY Procedure Laterality Date APPENDECTOMY 12/1976 COLONOSCOPY X3 COLONOSCOPY FLX DX W/COLLJ SPEC WHEN PFRMD 07/20/2013 Colonoscopy COLONOSCOPY FLX DX W/COLLJ SPEC WHEN PFRMD 07/16/2018 Colonoscopy ESOPHAGOGASTRODUODENOSCOPY TRANSORAL DIAGNOSTIC 07/20/2013 EGD LAPAROSCOPY SURG CHOLECYSTECTOMY 11/21/11 Cholecystectomy, lap OTOPLASTY RHINOPLASTY 1994 RPR 1ST INGUN HRNA AGE 4 YRS/> REDUCIBLE 02/02/2019 Hernia repair, inguinal SEPTOPLASTY age 32, complicated by post op bleeding SOCIAL HISTORY Social History Tobacco Use Smoking status: Never Smokeless tobacco: Never Vaping Use Vaping Use: Never used Substance Use Topics Alcohol use: Yes Comment: 1 beer every 3-4 weeks Drug use: No FAMILY HISTORY Problem Relation Age of Onset Hypertension Mother Liver Disease Mother Heart Failure Father Allergies Sister Cancer Sister thyroid other (Other) Sister Breast Cancer Sister other (pinealoma) Sister Allergies Brother Arthritis Brother Heart Attack Brother at age 65 Diabetes Maternal Grandmother Heart Maternal Grandfather heart attack at age 72 Diabetes Paternal Grandmother Stroke Paternal Grandfather Colon Cancer No Family History ALLERGIES: ALLERGIES Allergen Reactions Corticosteroids (Gl* Mental Status Change Dairy Aid [Lactase] Diarrhea Toradol [Ketorolac * Intolerance Restless -- crawling out of skin. MEDICATIONS: PREVALITE 4 gram packetTake 1 Packet by mouth once daily.Disp: 90 PacketRfl: 3 levothyroxine (SYNTHROID) 200 mcg tabletTake 1 tablet by mouth once daily. 30-60 minutes prior to breakfast.Disp: 90 tabletRfl: 3 hydrOXYzine HCl (ATARAX) 25 mg tabletDisp: Rfl: busPIRone (BUSPAR) 7.5 mg tabletTake 7.5 mg by mouth twice daily.Disp: Rfl: clonazePAM (KLONOPIN) 0.5 mg tabletas needed.Disp: Rfl: ebqfi-X-qmznnqyiiowxa (BEANO ORAL)Take 1 tablet by mouth once daily.Disp: Rfl: CPAPAutoPAP 15-20 cmH2O (change in settings) HUMIDITY. LIFETIME SUPPLIES. Dx:47.33. NPI [id number]: 1 DeviceRfl: 0 REVIEW OF SYSTEMS: GENERAL: + migraines, insomnia Negative for: Weight loss or gain, Fever or Chills, Weakness HEENT: Negative for: Headache, Impaired Vision, Glasses, Hearing Impairment, Ringing in Ears, Nosebleeds, Poor dental care, Bleeding Gums, Dentures NECK: Negative for: Swelling, Pain, Stiffness RESPIRATORY: Negative for: Cough, Blood in Sputum, Shortness of breath, Wheezing, Apnea GASTROINTESTINAL: Negative for: Trouble swallowing, Heartburn, Change in bowel habits, Blood in stool, Dark black stools MUSCULOSKELETAL: Negative for: Muscle or joint pain, Stiffness , Joint swelling NEUROLOGIC/PSYCHIATRIC: Negative for: Weakness, Paralysis, Numbness, Tingling, Tremor, Nervousness, Depressed mood, Memory loss SKIN: Negative for: Rashes, Itching HEMATOLOGICAL/L (more content not included)... [facility] 04-03-2023 Instructions Rosaura Munoz APRN.CNP - 04/03/2023 12:10 PM EDT -follow up in one year with Dr. Rader documented in this encounter [facility] 04-03-2023 History of Present illness Narrative Images from the original note were not included. [facility] [place] [facility] Department of Cardiovascular Medicine SECTION OF CARDIOVASCULAR IMAGING OUTPATIENT VISIT DATE April 03, 2023 OUTPATIENT VISIT TYPE ESTABLISHED PRIMARY CARE PHYSICIAN: Agata Shook [address] [place] [address] [place] [address] REFERRING PHYSICIAN: Hannah Rader [address] [facility] [id number] CHIEF COMPLAINT: Ascending aortic aneurysm HISTORY OF PRESENT ILLNESS: Mr. Chance is a 62 year old male with PMH significant for hypothyroidism, anxiety, MAXIMILIANO (CPAP), NAFLD, PVCs and asc aortic aneurysm (4.6 cm). who presents today for follow-up visit. He was last seen on 02/10/[address] Rader. Since his last visit, he states that he has been feeling well overall. He feels his heart racing a couple times/week, no symptoms associated with this. Reports this has been ongoing for years, previously worked up, no increase in frequency or severity. He denies chest pain, shortness of breath, orthopnea, cough, edema, palpitations, PND, lightheadedness or syncope. He is not on cardiac medications. No ER visits/hospitalizations or major complaints/concerns. He reports regular activity with hiking a few times/week to go bird watching. Asymptomatic. PAST CARDIAC HISTORY: He has been seen in the past for ascending aortic aneurysm. He was last seen on 02/10/[address] Rader. PAST MEDICAL HISTORY Diagnosis Date Anxiety Dr. Neal Arthritis left shoulder, neck BPH (benign prostatic hyperplasia) Chest pain Colon polyps 07/2013 repeat in 3 years Environmental allergies Fatty liver disease, nonalcoholic Gluten intolerance Hyperlipidemia Hypothyroid IBS (irritable bowel syndrome) Migraines MAXIMILIANO (obstructive sleep apnea) on CPAP, Dr. Hanks PVC (premature ventricular contraction) Snoring Thoracic aortic aneurysm without rupture (HCC) PAST SURGICAL HISTORY Procedure Laterality Date APPENDECTOMY 12/1976 COLONOSCOPY X3 COLONOSCOPY FLX DX W/COLLJ SPEC WHEN PFRMD 07/20/2013 Colonoscopy COLONOSCOPY FLX DX W/COLLJ SPEC WHEN PFRMD 07/16/2018 Colonoscopy ESOPHAGOGASTRODUODENOSCOPY TRANSORAL DIAGNOSTIC 07/20/2013 EGD LAPAROSCOPY SURG CHOLECYSTECTOMY 11/21/11 Cholecystectomy, lap OTOPLASTY RHINOPLASTY 1994 RPR 1ST INGUN HRNA AGE 4 YRS/> REDUCIBLE 02/02/2019 Hernia repair, inguinal SEPTOPLASTY age 32, complicated by post op bleeding SOCIAL HISTORY Social History Tobacco Use Smoking status: Never Smokeless tobacco: Never Vaping Use Vaping Use: Never used Substance Use Topics Alcohol use: Yes Comment: 1 beer every 3-4 weeks Drug use: No FAMILY HISTORY Problem Relation Age of Onset Hypertension Mother Liver Disease Mother Heart Failure Father Allergies Sister Cancer Sister thyroid other (Other) Sister Breast Cancer Sister other (pinealoma) Sister Allergies Brother Arthritis Brother Heart Attack Brother at age 65 Diabetes Maternal Grandmother Heart Maternal Grandfather heart attack at age 72 Diabetes Paternal Grandmother Stroke Paternal Grandfather Colon Cancer No Family History ALLERGIES: ALLERGIES Allergen Reactions Corticosteroids (Gl* Mental Status Change Dairy Aid [Lactase] Diarrhea Toradol [Ketorolac * Intolerance Restless -- crawling out of skin. MEDICATIONS: PREVALITE 4 gram packet^Take 1 Packet by mouth once daily.^Disp: 90 Packet^Rfl: 3 levothyroxine (SYNTHROID) 200 mcg tablet^Take 1 tablet by mouth once daily. 30-60 minutes prior to breakfast.^Disp: 90 tablet^Rfl: 3 hydrOXYzine HCl (ATARAX) 25 mg tablet^^Disp: ^Rfl: busPIRone (BUSPAR) 7.5 mg tablet^Take 7.5 mg by mouth twice daily.^Disp: ^Rfl: clonazePAM (KLONOPIN) 0.5 mg tablet^as needed.^Disp: ^Rfl: igzlj-N-kpafddcupdumx (BEANO ORAL)^Take 1 tablet by mouth once daily.^Disp: ^Rfl: CPAP^AutoPAP 15-20 cmH2O (change in settings) HUMIDITY. LIFETIME SUPPLIES. Dx:47.33. ^Disp: 1 Device^Rfl: 0 REVIEW OF SYSTEMS: GENERAL: + migraines, insomnia Negative for: Weight loss or gain, Fever or Chills, Weakness HEENT: Negative for: Headache, Impaired Vision, Glasses, Hearing Impairment, Ringing in Ears, Nosebleeds, Poor dental care, Bleeding Gums, Dentures NECK: Negative for: Swelling, Pain, Stiffness RESPIRATORY: Negative for: Cough, Blood in Sputum, Shortness of breath, Wheezing, Apnea GASTROINTESTINAL: Negative for: Trouble swallowing, Heartburn, Change in bowel habits, Blood in stool, Dark black stools MUSCULOSKELETAL: Negative for: Muscle or joint pain, Stiffness , Joint swelling NEUROLOGIC/PSYCHIATRIC: Negative for: Weakness, Paralysis, Numbness, Tingling, Tremor, Nervousness, Depressed mood, Memory loss SKIN: Negative for: Rashes, Itching HEMATOLOGICAL/LYMPHATIC: Negative for: Easy bruising , Easy bleeding ENDOCRINE: Negative for: Heat or cold intolerance, Excessive sweating, Frequent urination, Frequent thirst PHYSICAL EXAMINATION: BP 126/72 (BP Site: Left Arm) Pulse (!) 58 Resp 18 Ht 188 cm (6' 2 ) Wt 83 kg (183 lb) SpO2 98% BMI 23.50 kg/m General: Well appearing, in no acute distress. Skin: No clubbing, no cyanosis. Eyes: Extra ocular movements intact Neck: No jugular venous distention, no carotid bruits, carotids have a normal upstroke, no palpable thyromegaly. Lungs: Clear to auscultation bilaterally, no wheezing or rhonchi. Heart: Regular rhythm, PMI not displaced, S1, S2 normal, no S3, no S4, no heaves, no rub and no murmur. Abdomen: Soft, nontender, bowel sounds normal, no palpable organomegaly, no bruits. Extremities: No peripheral edema . Neuro: Oriented to person, place and time, alert, cooperative, gait coordinated. CARDIOVASCULAR MEDICINE TESTING: EKG 02/10/22 Echo 02/10/22 CONCLUSIONS: - Exam indication: Dilated aorta - The left ventricle is normal in size. Left ventricular systolic function is normal. EF = 65 5% (2D biplane). Normal left ventricular diastolic function. - The right ventricle is normal in size. Right ventricular systolic function is normal. - The visualized aorta is dilated with a maximal dimension of 4.6 cm. - Estimated right ventricular systolic pressure is 24 mmHg consistent with normal pulmonary artery pressures. Estimated right atrial pressure is 8 mmHg based on IVC assessment. - Exam was compared with the prior echocardiographic exam performed on 12/28/2020. Mid ascending aorta diameter relatively unchanged in size. CTA coronary 08/10/20 IMPRESSION: 1. There is very minimal coronary calcification with a calculated calcium score of 51AU, there is no significant atherosclerotic stenosis in the coronary artery system. The Coronary arteries have a normal origin and course. 2. The cardiac chamber sizes appear normal with normal thickness and function of the left ventricle, the calculated left ventricular ejection fraction is 70%. No significant valvular abnormalities noted. No significant pericardial effusions noted. 3. There is Ascending aorta aneurysm, with a maximal diameter of 4.6 cm, there is no evidence of acute aortic disease including dissection or significant atherosclerotic disease. 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 4. Recommend complete evaluation of the descending aorta and periodic monitoring of the Aortic aneurysm with optimized primary preventative therapy. I have personally reviewed the Echocardiogram. IMPRESSION: Mr. Chance is a 62 year old male with PMH significant for hypothyroidism, anxiety, MAXIMILIANO (CPAP), NAFLD, PVCs and asc aortic aneurysm (4.6 cm). who presents today for follow-up visit. Mr. Chance continues to feel well from a cardiac perspective. He is on no cardiac medications. HR/BP well controlled. Awaiting echo results. PLAN AND RECOMMENDATIONS: -awaiting echo results -follow up in [address] Rader with Echo if aneurysm dimensions stable -Wt lifting/Activity Restriction <50lbs, or activities requiring breathhold/grunting. -continue to monitor lipids with PCP I personally interviewed, confirmed and edited the above information if obtained by others. CONTACT INFORMATION: Rosaura Munoz APRN.CNP documented in this encounter [facility] 02-03-2023 Miscellaneous Notes Pharmacy verified in [facility] Patient has been identified by name and date of : Yes Patient aware RX will be sent to pharmacy. No need to notify patient. Pharmacy phones for refill(s): Requested Prescriptions Pending Prescriptions Disp Refills PREVALITE 4 gram packet 90 Packet 3 Sig: Take 1 Packet by mouth once daily. levothyroxine (SYNTHROID) 200 mcg tablet 90 tablet 3 Sig: Take 1 tablet by mouth once daily. 30-60 minutes prior to breakfast. Date of last office visit : 01/19/2023 Date of next office visit : Visit date not found Last 2 Encounter Wt Readings: Date: Wt: 01/19/2023 80.3 kg (177 lb) 10/01/2022 85.3 kg (188 lb) Thyroid: TSH Date Value 12/26/2022 0.435 mIU/L 08/23/2021 0.270 uU/mL Please advise. Salma Montgomery LPN Patient has been identified by name and date of : Yes Requested Prescriptions Pending Prescriptions Disp Refills PREVALITE 4 gram packet 90 Packet 3 Sig: Take 1 Packet by mouth once daily. levothyroxine (SYNTHROID) 200 mcg tablet 90 tablet 3 Sig: Take 1 tablet by mouth once daily. 30-60 minutes prior to breakfast. RX INSTRUCTIONS: Patient aware RX will be sent to pharmacy. No need to notify patient. Iwona Chavez documented in this encounter [facility] 01-19-2023 Note HNO ID: [id number] Author: Agata Shook MD Service: ? Author Type: Physician Type: Progress Notes Filed: 01/19/2023 5:39 PM Note Text: CHIEF COMPLAINT Patient presents with: lupus HISTORY OF PRESENT ILLNESS Zi Chance is a 62 year old male who presents here today for lupus. I last saw this patient on 02/24/2022. - Has had constant abdominal pain for the last 2 years - Currently follows with filler picker for fatty liver, states that doctor never wants to talk about his abdominal pain. - Went to tool design drafter - States that he tested positive for half of them - Tested positive for Vasculitis, Celiac, Crohn's and some others - Went to sped teacher, lupus tests were high, wants to wait 4 months and recheck. - Concerned for kidney function if he does have lupus. - Endorses urinary frequency - Follows with urologist - History of recurrent kidney stones, recent CAT scan negative for kidney stones. - Denies rash - Denies joint swelling - Admits to joint pain, but states that he has been endorsing this for years Health Maintenance Due for Shingrix Vaccine (1 of 2) Due for Covid-19 Vaccine (4- Pfizer series) Labs reviewed. Past medical history, appointments, medications, allergies reviewed. REVIEW OF SYSTEMS General: Feels well, no weight changes, fevers or chills. HEENT: No sinus congestion, earache, sore throat. Cardiac: No chest pain, palpitations Resp: No cough, wheeze, shortness of breath GI: No reflux symptoms, food intolerance, bowel changes. +abdominal/flank pain : +urinary frequency, no dysuria. MS: +joint pain PAST MEDICAL HISTORY PAST MEDICAL HISTORY Diagnosis Date Anxiety Dr. Neal Arthritis left shoulder, neck BPH (benign prostatic hyperplasia) Chest pain Colon polyps 07/2013 repeat in 3 years Environmental allergies Fatty liver disease, nonalcoholic Gluten intolerance Hyperlipidemia Hypothyroid IBS (irritable bowel syndrome) Migraines MAXIMILIANO (obstructive sleep apnea) on CPAP, Dr. Hanks PVC (premature ventricular contraction) Snoring Thoracic aortic aneurysm without rupture (HCC) PHYSICAL EXAMINATION BP 118/73 Pulse (!) 56 Ht 188 cm (6' 2 ) Wt 80.3 kg (177 lb) SpO2 96% BMI 22.73 kg/m? General: Alert, well developed, well nourished, no distress, pleasant and cooperative. Heart: Regular rate and rhythm. Normal S1 and S2. No murmurs, rubs, or gallops. Lungs: Clear to auscultation bilaterally. No respiratory distress. No wheezes, rales, or rhonchi. Abdomen: Soft, non-tender, no distention. Extremities: Feet/ankles without edema, posterior tibial pulses full and symmetrical. Data Reviewed Component Latest Ref Rng AND Units 12/26/2022 TSH 0.270 - 4.200 mIU/L 0.435 Component Latest Ref Rng AND Units 12/05/2022 12/05/2022 12:00 AM 12:00 AM NA 136 - 145 mmol/L 140 K 3.5 - 5.1 mmol/L 4.3 (A) Chloride 98 - 107 MEQ/L 106 CO2 21 - 32 MEQ/L 29 Glucose 74 - 106 MG/DL 75 BUN 7 - 18 MG/DL 19 (A) Creatinine 0.6 - 1.3 MG/DL 1.04 GFR mL/MIN 77 GFR AFR AMER mL/MIN 93 Total Protein 6.4 - 8.2 gm/dL 8.1 Albumin 3.2 - 4.6 gm/dL 4.1 Calcium 8.5 - 10.1 mg/dL 9.3 Bili Total 0.2 - 1 mg/dL 0.50 AST 8 - 37 U/L 24 ALT (SGPT) 12 - 78 U/L 33 Alk Phos Total 45 - 117 U/L 71 Anion Gap 5 GLOBULIN 4.0 Creatinine, Ur Random (UCRR) 173 Protein, Urine Random 15.3 Pro/Creat Ratio 88 PROTIME 12.4 INR 0.9 APTT 29.1 WBC 4.0 - 11.0 K/uL 5.0 RBC 4.50 HGB 12 - 16 g/dL 13.8 HCT 33 - 42 % 42.2 (A) MCV 80 - 100 fL 93.8 MCH 27 - 34 pG 30.7 MCHC 32 - 36 % 32.7 RDW 11.5 - 14.5 % 12.2 RDW-SD 42.2 Platelet 140 - 440 K/uL 244 MPV 7.3 - 11.1 % 10.1 Neut% 45.4 LYMPH % 20 - 30 % 36.8 (A) [place]% 13.2 EOS % 1 - 3 % 3.6 (A) Baso% 0.6 Immature Gran % % 0.400 Absolute Lymphocytes(Lymph Subset) 1.84 COLOR yellow Clarity Urine-ED(POC) Clear Glucose,UR Negative Negative Bilirubin, Urine Neg neg Ketone NEG neg Spec Grav, Urine (Adulterants) 1.015 pH,Urine 6.5 Protein,UR Negative Negative UROBILINOGEN UA (POCT) normal Nitrate NEG negative Leuk Esterase NEG negative DILUTED PT (DPT) 0.0 - 47.6 sec 43.1 DPT CONFIRM RATIO 0.00 - 1.34 ratio 1.18 Thrombin Time 0 - 23.0 17.2 18.2 PTT-LA 0.0 - 43.5 sec 45.5 Ptt-La Mix 0.0 - 40.5 sec 43.8 HEXAGONAL PHASE PHOSPHOLIPID 0 - 11 sec 10 dRVVT 0.0 - 47.0 sec 45.9 Assessment/Plan (M35.9) Autoimmune disease (HCC) (primary encounter diagnosis) Encounter Diagnosis ICD-10-CM 1. Autoimmune disease (HCC) M35.9 CONSULT TO RHEUM/IMMUN DISEASE CANCELED: CONSULT TO RHEUM/IMMUN DISEASE 2. Positive ALAINA (antinuclear antibody) R76.8 CONSULT TO RHEUM/IMMUN DISEASE 3. Chronic abdominal pain R10.9 CONSULT TO RHEUM/IMMUN DISEASE G89.29 4. Positive double stranded DNA antibody test R76.8 CONSULT TO RHEUM/IMMUN DISEASE 5. SS-A antibody positive R76.8 CONSULT TO RHEUM/IMMUN DISEASE 6. Positive sm/SLUG PRESS OPERATOR antibody R76.8 CONSULT TO R (more content not included)... [facility] 01-19-2023 History of Present illness Narrative CHIEF COMPLAINT Patient presents with: lupus HISTORY OF PRESENT ILLNESS Zi Chance is a 62 year old male who presents here today for lupus. I last saw this patient on 02/24/2022. - Has had constant abdominal pain for the last 2 years - Currently follows with filler picker for fatty liver, states that doctor never wants to talk about his abdominal pain. - Went to tool design drafter - States that he tested positive for half of them - Tested positive for Vasculitis, Celiac, Crohn's and some others - Went to sped teacher, lupus tests were high, wants to wait 4 months and recheck. - Concerned for kidney function if he does have lupus. - Endorses urinary frequency - Follows with urologist - History of recurrent kidney stones, recent CAT scan negative for kidney stones. - Denies rash - Denies joint swelling - Admits to joint pain, but states that he has been endorsing this for years Health Maintenance Due for Shingrix Vaccine (1 of 2) Due for Covid-19 Vaccine (4- Pfizer series) Labs reviewed. Past medical history, appointments, medications, allergies reviewed. REVIEW OF SYSTEMS General: Feels well, no weight changes, fevers or chills. HEENT: No sinus congestion, earache, sore throat. Cardiac: No chest pain, palpitations Resp: No cough, wheeze, shortness of breath GI: No reflux symptoms, food intolerance, bowel changes. +abdominal/flank pain : +urinary frequency, no dysuria. MS: +joint pain PAST MEDICAL HISTORY PAST MEDICAL HISTORY Diagnosis Date Anxiety Dr. Neal Arthritis left shoulder, neck BPH (benign prostatic hyperplasia) Chest pain Colon polyps 07/2013 repeat in 3 years Environmental allergies Fatty liver disease, nonalcoholic Gluten intolerance Hyperlipidemia Hypothyroid IBS (irritable bowel syndrome) Migraines MAXIMILIANO (obstructive sleep apnea) on CPAP, Dr. Hanks PVC (premature ventricular contraction) Snoring Thoracic aortic aneurysm without rupture (HCC) PHYSICAL EXAMINATION BP 118/73 Pulse (!) 56 Ht 188 cm (6' 2 ) Wt 80.3 kg (177 lb) SpO2 96% BMI 22.73 kg/m General: Alert, well developed, well nourished, no distress, pleasant and cooperative. Heart: Regular rate and rhythm. Normal S1 and S2. No murmurs, rubs, or gallops. Lungs: Clear to auscultation bilaterally. No respiratory distress. No wheezes, rales, or rhonchi. Abdomen: Soft, non-tender, no distention. Extremities: Feet/ankles without edema, posterior tibial pulses full and symmetrical. Data Reviewed Component Latest Ref Rng & Units 12/26/2022 TSH 0.270 - 4.200 mIU/L 0.435 Component Latest Ref Rng & Units 12/05/2022 12/05/2022 12:00 AM 12:00 AM NA 136 - 145 mmol/L 140 K 3.5 - 5.1 mmol/L 4.3 (A) Chloride 98 - 107 MEQ/L 106 CO2 21 - 32 MEQ/L 29 Glucose 74 - 106 MG/DL 75 BUN 7 - 18 MG/DL 19 (A) Creatinine 0.6 - 1.3 MG/DL 1.04 GFR mL/MIN 77 GFR AFR AMER mL/MIN 93 Total Protein 6.4 - 8.2 gm/dL 8.1 Albumin 3.2 - 4.6 gm/dL 4.1 Calcium 8.5 - 10.1 mg/dL 9.3 Bili Total 0.2 - 1 mg/dL 0.50 AST 8 - 37 U/L 24 ALT (SGPT) 12 - 78 U/L 33 Alk Phos Total 45 - 117 U/L 71 Anion Gap 5 GLOBULIN 4.0 Creatinine, Ur Random (UCRR) 173 Protein, Urine Random 15.3 Pro/Creat Ratio 88 PROTIME 12.4 INR 0.9 APTT 29.1 WBC 4.0 - 11.0 K/uL 5.0 RBC 4.50 HGB 12 - 16 g/dL 13.8 HCT 33 - 42 % 42.2 (A) MCV 80 - 100 fL 93.8 MCH 27 - 34 pG 30.7 MCHC 32 - 36 % 32.7 RDW 11.5 - 14.5 % 12.2 RDW-SD 42.2 Platelet 140 - 440 K/uL 244 MPV 7.3 - 11.1 % 10.1 Neut% 45.4 LYMPH % 20 - 30 % 36.8 (A) [place]% 13.2 EOS % 1 - 3 % 3.6 (A) Baso% 0.6 Immature Gran % % 0.400 Absolute Lymphocytes(Lymph Subset) 1.84 COLOR yellow Clarity Urine-ED(POC) Clear Glucose,UR Negative Negative Bilirubin, Urine Neg neg Ketone NEG neg Spec Grav, Urine (Adulterants) 1.015 pH,Urine 6.5 Protein,UR Negative Negative UROBILINOGEN UA (POCT) normal Nitrate NEG negative Leuk Esterase NEG negative DILUTED PT (DPT) 0.0 - 47.6 sec 43.1 DPT CONFIRM RATIO 0.00 - 1.34 ratio 1.18 Thrombin Time 0 - 23.0 17.2 18.2 PTT-LA 0.0 - 43.5 sec 45.5 Ptt-La Mix 0.0 - 40.5 sec 43.8 HEXAGONAL PHASE PHOSPHOLIPID 0 - 11 sec 10 dRVVT 0.0 - 47.0 sec 45.9 Assessment/Plan (M35.9) Autoimmune disease ([facility]) (primary encounter diagnosis) Encounter Diagnosis ICD-10-CM 1. Autoimmune disease ([facility]) M35.9 CONSULT TO RHEUM/IMMUN DISEASE CANCELED: CONSULT TO RHEUM/IMMUN DISEASE 2. Positive ALAINA (antinuclear antibody) R76.8 CONSULT TO RHEUM/IMMUN DISEASE 3. Chronic abdominal pain R10.9 CONSULT TO RHEUM/IMMUN DISEASE G89.29 4. Positive double stranded DNA antibody test R76.8 CONSULT TO RHEUM/IMMUN DISEASE 5. SS-A antibody positive R76.8 CONSULT TO RHEUM/IMMUN DISEASE 6. Positive sm/SLUG PRESS OPERATOR antibody R76.8 CONSULT TO RHEUM/IMMUN DISEASE 7. 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 Lupus test results were high, sped teacher wanted repeat test in April. Recommend seeing a different sped teacher for a second opinion. Plan: CONSULT TO RHEUM/IMMUN DISEASE. Not seeing any sign of kidney involvement. Will forward positive labs to rheum Requested Prescriptions No prescriptions requested or ordered in this encounter RTO: as needed Scribe Attestation: By signing my name below, I, Jaleesa Li, attest that this documentation has been prepared under the direction and in the presence of Girish Shook M.D. Electronically Signed: Justino Mcmullen. January 19, 2023 4:03 PM Provider Attestation: I, Agata Shook MD, personally performed the services described in this documentation. All medical record entries made by the scribe were at my direction and in my presence. I have reviewed the chart and discharge instructions (if applicable), and agree that the record reflects my personal performance and is accurate and complete. Electronically Signed: Agata Shook MD January 19, 2023 5:38 PM documented in this encounter [facility] 01-12-2023 Miscellaneous Notes Schedule appointmnent here In office to review what's going on. 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 The recent kidney function was OK It's been about a year since last visit so start with a visit here. Agata Shook MD documented in this encounter [facility] 12-31-2022 Miscellaneous Notes Received visit summary reviewing positive C-ANCA, p-ANCA, ALAINA, anti-DNA and anti-SSA antibody and anti-SLUG PRESS OPERATOR antibody from [facility]. Placed in provider's inbox for review. Route to MA scanning. documented in this encounter [facility] 12-11-2022 Miscellaneous Notes Received 12/11/2022 from [facility]. Placed in provider's inbox for review. Route to MA for scanning documented in this encounter [facility] 12-08-2022 Miscellaneous Notes Received thrombin time result (17.2) from [facility] 12/05/22. Placed in provider's inbox for review. Route to MA scanning. Entered into pt chart documented in this encounter [facility] 12-08-2022 Miscellaneous Notes Received 12/05/2022 from [facility]. Placed in provider's inbox for review. Route to MA for scanning documented in this encounter [facility] 11-05-2022 Miscellaneous Notes Additional labs received and entered into [facility]. Placed in tray for review. Received 11/05/2022 from [facility]. Placed in provider's inbox for review. Route to MA for scanning documented in this encounter [facility] 11-04-2022 Miscellaneous Notes Received Celiac testing results from [facility]. Placed in provider's inbox for review. Route to MA scanning. Entered into pt chart. documented in this encounter [facility] 10-01-2022 Note HNO ID: [id number] Author: Evgeny Eid MD Service: ? Author Type: Physician Type: Progress Notes Filed: 10/01/2022 8:34 AM Note Text: HPI:Zi Chance is a 61 year old male who presents for Fatty Liver (Abdominal Pain- records in Epic ). Known c/o- SORTO with Fibroscan showing F1, S3. He lost 40 lbs last year. He is otherwise doing well. No h/o- nausea, vomiting, loss of appetite, hematemesis, bleeding RI, unexplained weight loss, diarrhea, tenesmus, nocturnal diarrhea. PAST MEDICAL HISTORY Diagnosis Date Anxiety Dr. Neal Arthritis left shoulder, neck BPH (benign prostatic hyperplasia) Chest pain Colon polyps 07/2013 repeat in 3 years Environmental allergies Fatty liver disease, nonalcoholic Gluten intolerance Hyperlipidemia Hypothyroid IBS (irritable bowel syndrome) Migraines MAXIMILIANO (obstructive sleep apnea) on CPAP, Dr. Hanks PVC (premature ventricular contraction) Snoring Thoracic aortic aneurysm without rupture (HCC) PAST SURGICAL HISTORY Procedure Laterality Date APPENDECTOMY 12/1976 COLONOSCOPY X3 COLONOSCOPY FLX DX W/COLLJ SPEC WHEN PFRMD 07/20/2013 Colonoscopy COLONOSCOPY FLX DX W/COLLJ SPEC WHEN PFRMD 07/16/2018 Colonoscopy ESOPHAGOGASTRODUODENOSCOPY TRANSORAL DIAGNOSTIC 07/20/2013 EGD LAPAROSCOPY SURG CHOLECYSTECTOMY 11/21/11 Cholecystectomy, lap OTOPLASTY RHINOPLASTY 1994 RPR 1ST INGUN HRNA AGE 4 YRS/> REDUCIBLE 02/02/2019 Hernia repair, inguinal SEPTOPLASTY age 32, complicated by post op bleeding Allergies: ALLERGIES Allergen Reactions Corticosteroids (Gl* Mental Status Change Dairy Aid [Lactase] Diarrhea Toradol [Ketorolac * Intolerance Restless -- crawling out of skin. Medications: hydrOXYzine HCl (ATARAX) 25 mg tablet PREVALITE 4 gram packet TAKE 1 PACKET BY MOUTH ONCE DAILY. levothyroxine (SYNTHROID) 200 mcg tablet TAKE 1 TABLET BY MOUTH ONCE DAILY. 30-60 MINUTES PRIOR TO BREAKFAST. busPIRone (BUSPAR) 7.5 mg tablet Take 7.5 mg by mouth twice daily. clonazePAM (KLONOPIN) 0.5 mg tablet as needed. wldms-D-ecipmufoearqs (BEANO ORAL) Take 1 tablet by mouth once daily. CPAP AutoPAP 15-20 cmH2O (change in settings) HUMIDITY. LIFETIME SUPPLIES. Dx:47.33. FAMILY HISTORY Problem Relation Age of Onset Hypertension Mother Liver Disease Mother Heart Failure Father Allergies Sister Cancer Sister thyroid other (Other) Sister Breast Cancer Sister other (pinealoma) Sister Allergies Brother Arthritis Brother Heart Attack Brother at age 65 Diabetes Maternal Grandmother Heart Maternal Grandfather heart attack at age 72 Diabetes Paternal Grandmother Stroke Paternal Grandfather Colon Cancer No Family History Employer And Job Title: None on file Years Of Education Completed: Not specified Marital Status: Social History Tobacco Use Smoking status: Never Smokeless tobacco: Never Vaping Use Vaping Use: Never used Substance Use Topics Alcohol use: Yes Comment: 1 beer every 3-4 weeks Drug use: No Review of Systems: Review of Systems Constitutional: Positive for fatigue. Respiratory: Positive for apnea and cough. Gastrointestinal: Positive for abdominal pain. All other systems reviewed and are negative. I have confirmed and edited as necessary, the PFSH and ROS obtained by others. Hemoglobin (g/dL) Date Value 03/12/2022 13.0 06/19/2021 13.3 Hematocrit (%) Date Value 03/12/2022 39.0 06/19/2021 39.9 WBC (k/uL) Date Value 03/12/2022 5.33 06/19/2021 5.53 Platelet Count (k/uL) Date Value 03/12/2022 189 06/19/2021 212 CMP: Glucose 94 03/12/2022 BUN 15 03/12/2022 Creatinine 1.04 03/12/2022 Sodium 138 03/12/2022 Potassium 4.2 03/12/2022 Chloride 103 03/12/2022 CO2 27 03/12/2022 Protein, Total 7.6 03/12/2022 Albumin 4.5 03/12/2022 Calcium 9.2 03/12/2022 Alkaline Phosphatase 71 03/12/2022 Bilirubin, Total 0.4 03/12/2022 AST 25 03/12/2022 ALT 25 03/12/2022 Physical Examination: BP 114/74 Pulse 56 Ht 6' 2 (1.88m) Wt 188 lb (85.3kg) BMI 24.13 kg/(m2). General appearance: Well appearing, alert, in no acute distress, well-hydrated, well nourished. Skin: Skin color, texture, turgor normal Head: Normocephalic, no masses, lesions, tenderness or abnormalities Eyes: Anicteric sclera. Pupils are equally round. Oropharynx: Lips, mucosa, and tongue normal, teeth and gums normal, oropharynx normal Neck: Supple, no adenopathy; thyroid symmetric, normal size, no bruits Lungs: Lungs clear to auscultation. No wheezing, rhonchi, rales. Heart: RRR without murmur, gallop, or rubs. No ectopy Abdomen: Normal abdominal exam, Abdomen soft, non-tender. Bowel sounds normal. No masses, organomegaly Extremities: No deformities, edema, skin discoloration, clubbing or cyanosis. Good capillary refill. ASSESSMENT: 61 year old male patient who is in our clinic with SORTO, most recent LFT's in March 2022 are normal. PLAN: Contin (more content not included)... [facility] 10-01-2022 History of Present illness Narrative HPI:Zi Chance is a 61 year old male who presents for Fatty Liver (Abdominal Pain- records in Epic ). Known c/o- SORTO with Fibroscan showing F1, S3. He lost 40 lbs last year. He is otherwise doing well. No h/o- nausea, vomiting, loss of appetite, hematemesis, bleeding RI, unexplained weight loss, diarrhea, tenesmus, nocturnal diarrhea. PAST MEDICAL HISTORY Diagnosis Date Anxiety Dr. Neal Arthritis left shoulder, neck BPH (benign prostatic hyperplasia) Chest pain Colon polyps 07/2013 repeat in 3 years Environmental allergies Fatty liver disease, nonalcoholic Gluten intolerance Hyperlipidemia Hypothyroid IBS (irritable bowel syndrome) Migraines MAXIMILIANO (obstructive sleep apnea) on CPAP, Dr. Hanks PVC (premature ventricular contraction) Snoring Thoracic aortic aneurysm without rupture (HCC) PAST SURGICAL HISTORY Procedure Laterality Date APPENDECTOMY 12/1976 COLONOSCOPY X3 COLONOSCOPY FLX DX W/COLLJ SPEC WHEN PFRMD 07/20/2013 Colonoscopy COLONOSCOPY FLX DX W/COLLJ SPEC WHEN PFRMD 07/16/2018 Colonoscopy ESOPHAGOGASTRODUODENOSCOPY TRANSORAL DIAGNOSTIC 07/20/2013 EGD LAPAROSCOPY SURG CHOLECYSTECTOMY 11/21/11 Cholecystectomy, lap OTOPLASTY RHINOPLASTY 1994 RPR 1ST INGUN HRNA AGE 4 YRS/> REDUCIBLE 02/02/2019 Hernia repair, inguinal SEPTOPLASTY age 32, complicated by post op bleeding Allergies: ALLERGIES Allergen Reactions Corticosteroids (Gl* Mental Status Change Dairy Aid [Lactase] Diarrhea Toradol [Ketorolac * Intolerance Restless -- crawling out of skin. Medications: hydrOXYzine HCl (ATARAX) 25 mg tablet PREVALITE 4 gram packet TAKE 1 PACKET BY MOUTH ONCE DAILY. levothyroxine (SYNTHROID) 200 mcg tablet TAKE 1 TABLET BY MOUTH ONCE DAILY. 30-60 MINUTES PRIOR TO BREAKFAST. busPIRone (BUSPAR) 7.5 mg tablet Take 7.5 mg by mouth twice daily. clonazePAM (KLONOPIN) 0.5 mg tablet as needed. wuzit-U-khcrovynkkjpe (BEANO ORAL) Take 1 tablet by mouth once daily. CPAP AutoPAP 15-20 cmH2O (change in settings) HUMIDITY. LIFETIME SUPPLIES. Dx:47.33. FAMILY HISTORY Problem Relation Age of Onset Hypertension Mother Liver Disease Mother Heart Failure Father Allergies Sister Cancer Sister thyroid other (Other) Sister Breast Cancer Sister other (pinealoma) Sister Allergies Brother Arthritis Brother Heart Attack Brother at age 65 Diabetes Maternal Grandmother Heart Maternal Grandfather heart attack at age 72 Diabetes Paternal Grandmother Stroke Paternal Grandfather Colon Cancer No Family History Employer And Job Title: None on file Years Of Education Completed: Not specified Marital Status: Social History Tobacco Use Smoking status: Never Smokeless tobacco: Never Vaping Use Vaping Use: Never used Substance Use Topics Alcohol use: Yes Comment: 1 beer every 3-4 weeks Drug use: No Review of Systems: Review of Systems Constitutional: Positive for fatigue. Respiratory: Positive for apnea and cough. Gastrointestinal: Positive for abdominal pain. All other systems reviewed and are negative. I have confirmed and edited as necessary, the PFSH and ROS obtained by others. Hemoglobin (g/dL) Date Value 03/12/2022 13.0 06/19/2021 13.3 Hematocrit (%) Date Value 03/12/2022 39.0 06/19/2021 39.9 WBC (k/uL) Date Value 03/12/2022 5.33 06/19/2021 5.53 Platelet Count (k/uL) Date Value 03/12/2022 189 06/19/2021 212 CMP: Glucose 94 03/12/2022 BUN 15 03/12/2022 Creatinine 1.04 03/12/2022 Sodium 138 03/12/2022 Potassium 4.2 03/12/2022 Chloride 103 03/12/2022 CO2 27 03/12/2022 Protein, Total 7.6 03/12/2022 Albumin 4.5 03/12/2022 Calcium 9.2 03/12/2022 Alkaline Phosphatase 71 03/12/2022 Bilirubin, Total 0.4 03/12/2022 AST 25 03/12/2022 ALT 25 03/12/2022 Physical Examination: BP 114/74 Pulse 56 Ht 6' 2 (1.88m) Wt 188 lb (85.3kg) BMI 24.13 kg/(m^2). General appearance: Well appearing, alert, in no acute distress, well-hydrated, well nourished. Skin: Skin color, texture, turgor normal Head: Normocephalic, no masses, lesions, tenderness or abnormalities Eyes: Anicteric sclera. Pupils are equally round. Oropharynx: Lips, mucosa, and tongue normal, teeth and gums normal, oropharynx normal Neck: Supple, no adenopathy; thyroid symmetric, normal size, no bruits Lungs: Lungs clear to auscultation. No wheezing, rhonchi, rales. Heart: RRR without murmur, gallop, or rubs. No ectopy Abdomen: Normal abdominal exam, Abdomen soft, non-tender. Bowel sounds normal. No masses, organomegaly Extremities: No deformities, edema, skin discoloration, clubbing or cyanosis. Good capillary refill. ASSESSMENT: 61 year old male patient who is in our clinic with SORTO, most recent LFT's in March 2022 are normal. PLAN: Continue with current medications. Repeat LFT. RTC- 1 year Evgeny Eid MD DATE: 10/01/22 TIME: 8:03 AM documented in this encounter [facility] 09-30-2022 Hospital Discharge instructions Patient Education 09/29/2022 23:18:12 Headache, Unspecified Headache, Unspecified A number of things can cause headaches. The cause of your headache isn t clear. But it doesn t seem to be a sign of any serious illness. Headache affects almost everyone at some time. It is the most common reason people miss days from work or school. You could have a tension headache or a migraine headache. Stress can cause a tension headache. This can happen if you tense the muscles of your shoulders, neck, and scalp without knowing it. If this stress lasts long enough, you may develop a tension headache. It is not clear why migraines occur, but certain things called triggers can raise the risk of having a migraine attack. Migraine triggers may include emotional stress or depression, or by hormone changes during the menstrual cycle. Other triggers include control pills and other medicines, alcohol or caffeine, foods with tyramine (such as aged cheese, wine), eyestrain, weather changes, missed meals, and lack of sleep or oversleeping. Other causes of headache include: Viral illness with high fever Head injury with concussion Sinus, ear, or throat infection Dental pain and jaw joint (TMJ) pain More serious but less common causes of headache include stroke, brain hemorrhage, brain tumor, meningitis, and encephalitis. Home care Follow these tips when taking care of yourself at home: Don t drive yourself home if you were given pain medicine for your headache. Instead, have someone else drive you home. Try to sleep when you get home. You should feel much better when you wake up. Apply heat to the back of your neck to ease a neck muscle spasm. Take care of a migraine headache by putting an ice pack on your forehead or at the base of your skull. If you have nausea or vomiting, eat a light diet until your headache eases. If you have a migraine headache, use sunglasses when in the daylight or around bright indoor lighting until your symptoms get better. Bright glaring light can make this type of headache worse. Follow-up care Follow up with your healthcare provider, or as advised. Talk with your provider if you have frequent headaches. He or she can help figure out a treatment plan. By knowing the earliest signs of headache, and starting treatment right away, you may be able to stop the pain yourself. When to seek medical advice Call your healthcare provider right away if any of these occur: Your head pain suddenly gets worse after sexual intercourse or strenuous activity Your head pain doesn t get better within 24 hours You aren t able to keep liquids down (repeated vomiting) Fever of 100.4 F (38 C) or higher, or as directed by your healthcare provider Stiff neck Extreme drowsiness, confusion, or fainting Dizziness or dizziness with spinning sensation (vertigo) Weakness in an arm or leg or one side of your face You have trouble talking or seeing [phone] [employer] [place] [id number]. All rights reserved. This information is not intended as a substitute for professional medical care. Always follow your healthcare professional's instructions. Follow Up Care 09/29/2022 22:31:20 With:Follow up with primary care provider Address:Unknown When:2-[address] [facility] 09-30-2022 Note Discharge Instructions Thank you for allowing [facility] to assist you with your healthcare needs. The following is important discharge information regarding your hospital visit. Diagnosis from Today's Visit Headache What to Do Next Instructions from Your Care Team No qualifying data available. Post Acute Orders No qualifying data available. You Need to Schedule the Following Appointments Follow Up with Follow up with primary care provider When Within 2-4 days Allergies ketorolac predniSONE Medications Please ask your primary doctor or pharmacist before taking any other medication not listed, including over the counter drugs, herbal medications, vitamins and or supplements as they may interact with your home medications. What How Much When Instructions Last Dose Unchanged cholestyramine (Prevalite Packets 4 g/ 5.5 g oral powder for reconstitution) 4 gram(s) by mouth Two (2) times a day Unchanged levothyroxine (levothyroxine 200 mcg (0.2 mg) oral tablet) 1 tab(s) by mouth Once a day Please take this list to your next doctor s visit. Bring all medications you take, including over the counter medications, herbals and other supplements with you to your doctor s visit. Patients and families are reminded to discard old lists and to update any records with all medication providers or retail pharmacies. Education Materials Headache, Unspecified A number of things can cause headaches. The cause of your headache isn t clear. But it doesn t seem to be a sign of any serious illness. Headache affects almost everyone at some time. It is the most common reason people miss days from work or school. You could have a tension headache or a migraine headache. Stress can cause a tension headache. This can happen if you tense the muscles of your shoulders, neck, and scalp without knowing it. If this stress lasts long enough, you may develop a tension headache. It is not clear why migraines occur, but certain things called triggers can raise the risk of having a migraine attack. Migraine triggers may include emotional stress or depression, or by hormone changes during the menstrual cycle. Other triggers include control pills and other medicines, alcohol or caffeine, foods with tyramine (such as aged cheese, wine), eyestrain, weather changes, missed meals, and lack of sleep or oversleeping. Other causes of headache include: Viral illness with high fever Head injury with concussion Sinus, ear, or throat infection Dental pain and jaw joint (TMJ) pain More serious but less common causes of headache include stroke, brain hemorrhage, brain tumor, meningitis, and encephalitis. Home care Follow these tips when taking care of yourself at home: Don t drive yourself home if you were given pain medicine for your headache. Instead, have someone else drive you home. Try to sleep when you get home. You should feel much better when you wake up. Apply heat to the back of your neck to ease a neck muscle spasm. Take care of a migraine headache by putting an ice pack on your forehead or at the base of your skull. If you have nausea or vomiting, eat a light diet until your headache eases. If you have a migraine headache, use sunglasses when in the daylight or around bright indoor lighting until your symptoms get better. Bright glaring light can make this type of headache worse. Follow-up care Follow up with your healthcare provider, or as advised. Talk with your provider if you have frequent headaches. He or she can help figure out a treatment plan. By knowing the earliest signs of headache, and starting treatment right away, you may be able to stop the pain yourself. When to seek medical advice Call your healthcare provider right away if any of these occur: Your head pain suddenly gets worse after sexual intercourse or strenuous activity Your head pain doesn t get better within 24 hours You aren t able to keep liquids down (repeated vomiting) Fever of 100.4 F (38 C) or higher, or as directed by your healthcare provider Stiff neck Extreme drowsiness, confusion, or fainting Dizziness or dizziness with spinning sensation (vertigo) Weakness in an arm or leg or one side of your face You have trouble talking or seeing [phone] [employer] [place] [address]. All rights reserved. This information is not intended as a substitute for professional medical care. Always follow your healthcare professional's instructions. Additional Information VACCINATE! IT SAVES LIVES! Members of the community who have not yet received the COVID-19 vaccine and would like to receive it can visit one of [facility] vaccine clinics. There are many vaccine clinic locations within the [facility]. For locations and available times, please visit [email or web address] It is important to note that some COVID mobile vaccine clinics are held outdoors and may be canceled in rainy or stormy conditions. To learn more about pediatric vaccinations (ages 5-11), we invite you to visit the [facility] webpage. [email or web address] To learn more about the COVID-19 vaccine, we invite you to visit the CDC website for a list of frequently asked questions. https://www.cdc.gov/coronavirus/2 019-ncov/vaccines/faq.html [facility] Patient Portal Access Instructions: Stay connected with your healthcare team and access your personal medical information anytime with the [facility] Patient Portal. If you would like a full copy of your medical records please contact the [facility] Medical Records Department Thursday through Thursday between 8a.m. and 4:30p.m. Please follow the directions below to access the portal: 1.Access the email account you provided upon registration to the [facility].2.Look for an invitation email from [facility].3.Open the email and access the invitation link: Accept Invitation to [facility]4.Fill in the required flores to create your account. Sign into [email or web address] with your username and password that you created in the above steps to stay up to date. You can then view a summary of results, a summary of your visits, and the ability to download your summaries to your computer or send the information securely to a physician. Remember that your healthcare information is confidential, so carefully consider who you will allow to register on the [facility] Patient Portal for access to your information. You can also access the [facility] Patient Portal on the [employer] carito. Simply click on Health Records under Health Data and then click on the [employer] logo. HOW TO SAFELY DISPOSE OF PRESCRIPTION MEDICATIONS Please use one of the following methods to safely dispose of your unused medications. 1.Use a drug disposal kit: the drug disposal pouch allows you to safely discard your old and unused drugs. Ask your nurse to give you one when you are discharged.2.Visit a local take-back location: Many local pharmacies and police departments have programs that collect old and unwanted prescription drugs. Call your local pharmacy or go to http://bit.ly/3T2Yu6l to find one close to you.3.Make use of household items: Use cat litter or old coffee grounds to dispose medications if other options are not available. Mix your drugs with these household products, seal them in an airtight container and throw it into the garbage. Call [facility]: [phone] to be sure your drugs can be disposed of in this way. Some medicines may require a different approach.4.Never flush your medications down the toilet. IF YOU HAVE BEEN PRESCRIBED AN OPIOIDS FOR PAIN If you have been prescribed an opioid (such as hydrocodone, oxycodone or morphine), it is critical to understand the possible side effects and risks of opioid pain medications. Even when taken as directed, opioids can have several side effects including: Tolerance, meaning you might need to take more of a medication for the same pain relief. Nausea, vomiting and/or constipation. Sleepiness, dizziness, dry mouth, confusion, depression or itching. Physical dependence, meaning you have withdrawal symptoms when a medication is stopped ? this can develop within a few days. KNOW YOUR RESPONSIBILITIES It is important to know exactly how much and how often to take the opioid pain medications you are prescribed. Never take opioids in higher amounts or more often than prescribed. Do not combine opioids with alcohol or other drugs that cause drowsiness, such as benzodiazepines, also known as benzos, including diazepam and alprazolam, muscle relaxants or sleep aids. Never sell or share prescription opioids. This is illegal. Store opioids in a secure place and out of reach of others (including children, family, friends and visitors). The last page(s) of this document has been signed and retained as a CHART COPY Signatures Patient Education Materials Headache, Unspecified Medication Leaflets My discharge plan and instructions have been reviewed and explained to me and I,ZI CHANCE understand my current condition and have read and understand these discharge instructions. I have received a written copy of the plan/instructions. If I have questions, I am aware that I should contact my doctor. Patient/Pediatric Ophthalmologist Signature: Date/Time: Relationship to Patient: ____ Witness Name/Signature: Date/Time: [facility] Yoselin 07-09-2022 Note HNO ID: [id number] Author: Wolf Villar MD Service: ? Author Type: Physician Type: Progress Notes Filed: 07/09/2022 3:27 PM Note Text: CARDIOLOGY CLINIC VISIT NOTE HPI: Mr. Chance is a 60 year old male with history of thoracic aortic aneurysm, hypothyroidism and palpitations who is here for a follow-up visit today. Patient had an exercise stress echocardiogram couple of years ago for evaluation of chest pain. Although he only reached 77% of maximum predicted heart rate, he had no evidence of ischemia. On the echocardiogram he was incidentally found to have ascending aortic aneurysm measuring 4.5 cm. He had coronary CTA which revealed mid ascending aortic diameter of 4.6 cm and calcium score of 51 with no significant epicardial stenosis. Patient was very concerned at the results. He has a history of sudden cardiac in brother at the age of 65. He did have a history of coronary artery disease and had stent placed 3 months before his . I referred him to [facility] to Dr. Rader and he is continuing his follow-up there. His aortic dimensions have remained stable over the last couple of years. In terms of symptoms he reports having intermittent palpitations that are described as irregular heartbeats. These episodes resolve after a few minutes spontaneously. He denies having any chest pain or shortness of breath. PAST MEDICAL HISTORY Diagnosis Date Anxiety Dr. Neal Arthritis left shoulder, neck BPH (benign prostatic hyperplasia) Chest pain Colon polyps 07/2013 repeat in 3 years Environmental allergies Fatty liver disease, nonalcoholic Gluten intolerance Hyperlipidemia Hypothyroid IBS (irritable bowel syndrome) Migraines MAXIMILIANO (obstructive sleep apnea) on CPAP, Dr. Hanks PVC (premature ventricular contraction) Snoring Thoracic aortic aneurysm without rupture PAST SURGICAL HISTORY Procedure Laterality Date APPENDECTOMY 12/1976 COLONOSCOPY X3 COLONOSCOPY FLX DX W/COLLJ SPEC WHEN PFRMD 07/20/2013 Colonoscopy COLONOSCOPY FLX DX W/COLLJ SPEC WHEN PFRMD 07/16/2018 Colonoscopy ESOPHAGOGASTRODUODENOSCOPY TRANSORAL DIAGNOSTIC 07/20/2013 EGD LAPAROSCOPY SURG CHOLECYSTECTOMY 11/21/11 Cholecystectomy, lap OTOPLASTY RHINOPLASTY 1994 RPR 1ST INGUN HRNA AGE 5 YRS/> REDUCIBLE 02/02/2019 Hernia repair, inguinal SEPTOPLASTY age 32, complicated by post op bleeding SOCIAL HISTORY Social History Tobacco Use Smoking status: Never Smokeless tobacco: Never Vaping Use Vaping Use: Never used Substance Use Topics Alcohol use: Yes Comment: 1 beer every 3-4 weeks Drug use: No FAMILY HISTORY Problem Relation Age of Onset Hypertension Mother Liver Disease Mother Heart Failure Father Allergies Sister Cancer Sister thyroid other (Other) Sister Breast Cancer Sister other (pinealoma) Sister Allergies Brother Arthritis Brother Heart Attack Brother at age 65 Diabetes Maternal Grandmother Heart Maternal Grandfather heart attack at age 72 Diabetes Paternal Grandmother Stroke Paternal Grandfather Family history was reviewed ALLERGIES Allergen Reactions Corticosteroids (Gl* Mental Status Change Dairy Aid [Lactase] Diarrhea Toradol [Ketorolac * Intolerance Restless -- crawling out of skin. MEDICATIONS: PREVALITE 4 gram packet TAKE 1 PACKET BY MOUTH ONCE DAILY. levothyroxine (SYNTHROID) 200 mcg tablet TAKE 1 TABLET BY MOUTH ONCE DAILY. 30-60 MINUTES PRIOR TO BREAKFAST. busPIRone (BUSPAR) 7.5 mg tablet Take 7.5 mg by mouth twice daily. clonazePAM (KLONOPIN) 0.5 mg tablet as needed. hydrOXYzine HCl (ATARAX) 10 mg tablet Take 1 tablet by mouth three times daily as needed. syutv-M-vhskqzabqmavl (BEANO ORAL) Take 1 tablet by mouth once daily. CPAP AutoPAP 15-20 cmH2O (change in settings) HUMIDITY. LIFETIME SUPPLIES. Dx:47.33. REVIEW OF SYSTEMS: GENERAL: Negative for:Weight loss and Weight gain HEENT: Negative for:Nosebleeds RESPIRATORY: Negative for:Shortness of breath GASTROINTESTINAL: Negative for:Blood in stool MUSCULOSKELETAL: Negtive for: Muscle or joint pain, stiffness, Joint swelling SKIN: No rash HEMATOLOGICAL/LYMPHATIC: Negative for: Easy bruising and Easy bleeding CARDIOVASCULAR: As stated in HPI. 10 system review negative except as stated in HPI PHYSICAL EXAMINATION: BP 102/67 (BP Site: Left Arm, BP Position: Sitting, BP Cuff Size: Regular Adult) Pulse (!) 58 Ht 6' 2 (1.88 m) Wt 183 lb (83 kg) SpO2 98% BMI 23.50 kg/m? General: Well appearing, appears stated age and in no acute distress. Psych: Normal Affect. Alert and oriented to person, place and time. HEENT: Sclera are anicteric, conjunctive IV are moist without subconjunctival hemorrhage. PERRLA. Head is atraumatic. Neck: Neck is supple. No jugular venous distention Lungs: Clear to auscultation bilaterally, no wheezing or rhonchi. Heart: S1, S2 normal, no murmur Abdomen. Soft, nontender, (more content not included)... [facility] 04-11-2022 History of Present illness Narrative Images from the original note were not included. [facility] UROLOGY ESTABLISHED PATIENT CLINIC NOTE UROLOGY PATIENT INFO: Zi Chance 61 year old PCP: Agata Shook MD UROLOGY DIAGNOSES: 1. Pelvic pain in male - ICD9: 789.09, ICD10: R10.2 HPI: Zi Chance returns for continuing evaluation and management. During this patient's last evaluation he presented with symptoms consistent with pelvic floor dysfunction. He was placed on a 2-week trial of meloxicam and referred to pelvic floor physical therapy. This patient underwent 3 sessions of pelvic floor physical therapy and did show some improvement. Patient has had improvement in bladder function and reduction in pain. Patient will continue to perform physical therapy activities at home.. PMHx/PSHx: see above, otherwise unchanged Rx: reviewed and unchanged ROS: see above, otherwise unchanged Labs: None Imaging: None MEDICATIONS: Current Outpatient Medications Medication Sig PREVALITE 4 gram packet TAKE 1 PACKET BY MOUTH ONCE DAILY. meloxicam (MOBIC) 15 mg tablet Take 1 tablet by mouth as needed. levothyroxine (SYNTHROID) 200 mcg tablet TAKE 1 TABLET BY MOUTH ONCE DAILY. 30-60 MINUTES PRIOR TO BREAKFAST. busPIRone (BUSPAR) 7.5 mg tablet Take 7.5 mg by mouth twice daily. clonazePAM (KLONOPIN) 0.5 mg tablet as needed. hydrOXYzine HCl (ATARAX) 10 mg tablet Take 1 tablet by mouth three times daily as needed. kuvjn-F-lqtlifmgxfnhr (BEANO ORAL) Take 1 tablet by mouth once daily. CPAP AutoPAP 15-20 cmH2O (change in settings) HUMIDITY. LIFETIME SUPPLIES. Dx:47.33. No current facility-administered medications for this visit. PHYSICAL EXAM: There were no vitals taken for this visit. There is no height or weight on file to calculate BMI. General: Well masculinized, well nourished male Psych: euthymic, NAD Neuro: A&Ox3 exam deferred OTHER DATA: PSA (ng/mL) Date Value 07/26/2018 0.17 11/13/2017 0.15 PSA Screening (ng/mL) Date Value 09/13/2021 0.23 No results found for: ISOPSA Creatinine Date Value Ref Range Status 03/12/2022 1.04 0.73 - 1.22 mg/dL Final 08/23/2021 1.04 0.73 - 1.22 mg/dL Final 08/23/2021 1.08 0.73 - 1.22 mg/dL Final 06/19/2021 1.07 0.73 - 1.22 mg/dL Final IMPRESSION/PLAN: 1. Pelvic pain in male - ICD9: 789.09, ICD10: R10.2 -Overall improvement. Patient also feels that meloxicam was beneficial and is requesting refill. Refill provided. Return as needed Blaise Payton M.D, MS Associate Staff [facility] [place] [facility] documented in this encounter [facility] 04-11-2022 Nurse Note Patient presents to discuss pelvic pain. Patient states he still has it but it has been intermittent. documented in this encounter [facility] 03-28-2022 History of Present illness Narrative Patient fasting for 3 hours:Yes Any implanted devices:No Possibility of :No/ N/A Fibroscan was performed on March 28, 2022, by Danika Duran RN and results are interpreted by Shara Ceja PA-C Diagnosis: fatty liver Please refer to get images report for individual readings Number of readings: 10 IQR: 8% E (kpa): 6.0 CAP: 255 Impression The reading was adequate, and corresponds to Fibrosis stage F0-F1 and steatosis grade of S1. Shara Ceja PA-C Grade CAP value up to 237 dB/M corresponds to S0 (< 10 % Fat) CAP value between (238 - 258 dB/M) corresponds to S1 (>/= 11 % Fat) CAP value between (259 - 289 dB/M) corresponds to S2 (>/= 33 % Fat) CAP value > 290dB/M corresponds to S3 (>/= 67 % Fat) stage 0 ( S0:< 10 % steatosis) stage 1 (>/= S1: 11%-33% steatosis) stage 2 (>/= S2: 34%-66% steatosis) stage 3 (>/= S3: > 66% steatosis) Int J Clin Exp Med. 2015; 8(10): 38344-92328. documented in this encounter [facility] 03-28-2022 History of Present illness Narrative Images from the original note were not included. Hepatology Clinic Note Patient Name: Zi Chance Reason for Visit: fatty liver History of present illness: Zi Chance is a 61 year old male who presents for follow up of fatty liver disease. Patient has a past medical history of hypothyroidism, anxiety, obstructive sleep apnea on BiPAP home, allergies, IBS. Patient reports that he is known to have elevated LFTs for about 2 decades and corresponding findings of fatty liver on imaging. He states that his LFTs usually ALT is in 70s. Most recent labs available in our system are from 2019 with ALT 84, AST 49, normal T bili, normal albumin, normal platelet count. He has RUQ discomfort. He had a CT which was unremarkable. He has intentionally lost about 40 pounds over the last 2 years. Past Medical History: PAST MEDICAL HISTORY Diagnosis Date Anxiety Dr. Neal Arthritis left shoulder, neck BPH (benign prostatic hyperplasia) Chest pain Colon polyps 07/2013 repeat in 3 years Environmental allergies Fatty liver disease, nonalcoholic Gluten intolerance Hyperlipidemia Hypothyroid IBS (irritable bowel syndrome) Migraines MAXIMILIANO (obstructive sleep apnea) on CPAP, Dr. Hanks Snoring Medications: Current Outpatient Medications Medication Sig levothyroxine (SYNTHROID) 200 mcg tablet TAKE 1 TABLET BY MOUTH ONCE DAILY. 30-60 MINUTES PRIOR TO BREAKFAST. busPIRone (BUSPAR) 7.5 mg tablet Take 7.5 mg by mouth twice daily. clonazePAM (KLONOPIN) 0.5 mg tablet as needed. PREVALITE 4 gram packet Take 1 Packet by mouth once daily. hydrOXYzine HCl (ATARAX) 10 mg tablet Take 1 tablet by mouth three times daily as needed. umens-F-gzuwqarfpyklk (BEANO ORAL) Take 1 tablet by mouth once daily. CPAP AutoPAP 15-20 cmH2O (change in settings) HUMIDITY. LIFETIME SUPPLIES. Dx:47.33. No current facility-administered medications for this visit. Allergies: ALLERGIES Allergen Reactions Corticosteroids (Gl* Mental Status Change Dairy Aid [Lactase] Diarrhea Toradol [Ketorolac * Intolerance Restless -- crawling out of skin. Family Hx: FAMILY HISTORY Problem Relation Age of Onset Hypertension Mother Liver Disease Mother Heart Failure Father Allergies Sister Cancer Sister thyroid other (Other) Sister Breast Cancer Sister other (pinealoma) Sister Allergies Brother Arthritis Brother Heart Attack Brother at age 65 Diabetes Maternal Grandmother Heart Maternal Grandfather heart attack at age 72 Diabetes Paternal Grandmother Stroke Paternal Grandfather Social Hx: Social History Tobacco Use Smoking status: Never Smokeless tobacco: Never Vaping Use Vaping Use: Never used Substance Use Topics Alcohol use: Yes Comment: 1 beer every 3-4 weeks Drug use: No Review of Systems: GENERAL: No weight loss, malaise or fevers RESPIRATORY: Negative for cough, hemoptysis, wheezing, COPD, dyspnea or shortness of breath CARDIOVASCULAR: Negative for chest pain, leg swelling, hypertension, CHF or palpitations GI: RUQ discomfort : No history of dysuria, frequency or incontinence MUSCULOSKELETAL: Negative for joint pain or swelling, back pain or muscle pain NEURO: No history of headaches, syncope, paralysis, seizures or tremors All other reviewed and negative other than HPI. Vital Signs: BP 117/70 (BP Site: Left Arm, BP Position: Sitting, BP Cuff Size: Large Adult) Pulse 60 Temp 36.3 C (97.4 F) (Temporal) Ht 188 cm (6' 2 ) Wt 83.6 kg (184 lb 3.2 oz) SpO2 99% BMI 23.65 kg/m Physical Exam: General appearance: Well appearing, alert, in no acute distress Head: Normocephalic, no masses, lesions, tenderness or abnormalities Lungs: Lungs clear to auscultation. No wheezing, rhonchi, rales. Heart: RRR without murmur, gallop, or rubs. No ectopy Abdomen: Normal abdominal exam, Abdomen soft Extremities: No deformities, edema Neuro: Gait normal. Labs: BUN (mg/dL) Date Value 03/12/2022 15 08/23/2021 16 Creatinine (mg/dL) Date Value 03/12/2022 1.04 08/23/2021 1.04 Potassium (mmol/L) Date Value 03/12/2022 4.2 08/23/2021 4.4 Alkaline Phosphatase (U/L) Date Value 03/12/2022 71 08/23/2021 75 AST (U/L) Date Value 03/12/2022 25 08/23/2021 29 ALT (U/L) Date Value 03/12/2022 25 08/23/2021 26 Assessment/ Plan: 1. Non alcoholic fatty liver disease: - Fjibroscan showed F1 and S3 - LFTs are normal - Lipids ar normal - He has lost 40 pounds through healthy eating and exercise - He will continue life style modification - Negative w/u for viral hepatitis, autoimmune hepatitis, etc - Fibroscan today - Follow up in one year with repeat fibroscan and labs Mao Jones MD documented in this encounter [facility] 03-26-2022 Miscellaneous Notes Called Zi Chance to remind them of an appointment with Dr. Jones on 03/28/2022. Left Message for patient. Sent [employer] message reminder. documented in this encounter [facility] 03-24-2022 Miscellaneous Notes The following approved medication requests have been transmitted electronically. Requested Prescriptions Signed Prescriptions Disp Refills levothyroxine (SYNTHROID) 200 mcg tablet 90 tablet 1 Sig: TAKE 1 TABLET BY MOUTH ONCE DAILY. 30-60 MINUTES PRIOR TO BREAKFAST. Authorizing Provider: AGATA SHOOK MD Pharmacy verified in [facility] Patient has been identified by name and date of : Yes Patient aware RX will be sent to pharmacy. No need to notify patient. Patient phones for refill(s): Requested Prescriptions Pending Prescriptions Disp Refills levothyroxine (SYNTHROID) 200 mcg tablet [Pharmacy Med Name: LEVOTHYROXINE 200 MCG TABLET] 90 tablet Sig: TAKE 1 TABLET BY MOUTH ONCE DAILY. 30-60 MINUTES PRIOR TO BREAKFAST. Date of last office visit : 06/19/2021 Date of next office visit : 03/28/2022 Last 2 Encounter Wt Readings: Date: Wt: 02/24/2022 80.7 kg (178 lb) 02/10/2022 78 kg (172 lb) Thyroid: TSH (uU/mL) Date Value 08/23/2021 0.270 Please advise. Salma Montgomery LPN documented in this encounter [facility] 03-14-2022 History of Present illness Narrative Radiology Service Progress Note DATE OF SERVICE: March 14, 2022 TIME: 1:30 PM PATIENT IDENTITY VERIFICATION COMPLETED USING TWO (2) STANDARD IDENTIFIERS: Name and Date of confirmed by patient verbally. FALL SCREENING: Has the patient had 2 falls in the last year or 1 fall with injury or currently using an Ambulatory Assistive Device (Walker, Cane, Wheelchair, Crutches, etc.)? No PATIENT GENDER DATA: Male PATIENT RELEVANT IMPLANT DATA REVIEWED: Yes ALLERGIES: Reviewed and unchanged CONTRAST ALLERGY: NO. EXAM: CT -CONTRAST INDUCED NEPHROPATHY RISK FACTORS: Patient age > 60 years CREATININE: Creatinine Date Value Ref Range Status 03/12/2022 1.04 0.73 - 1.22 mg/dL Final 08/23/2021 1.04 0.73 - 1.22 mg/dL Final 08/23/2021 1.08 0.73 - 1.22 mg/dL Final Estimated Glomerular Filtration Rate Date Value Ref Range Status 03/12/2022 81 >=60 mL/min/1.73m Final Comment: Estimated Glomerular Filtration Rate (eGFR) is calculated using the 2020 CKD-EPI creatinine equation. This equation utilizes serum creatinine, sex, and age as parameters. The creatinine assay has traceable calibration to isotope dilution-mass spectrometry. Refer to KDIGO guidelines for clinical interpretation. In patients with unstable renal function, e.g. those with acute kidney injury, the eGFR may not accurately reflect actual GFR. eGFR- Date Value Ref Range Status 08/23/2021 >60 Final P.O.C.T. RESULTS: POC done: Yes, See Lab Tab March 14, 2022 TREATMENT: N/A PERIPHERAL IV DATA: Ambulatory: A peripheral IV was started in the Left antecubital site with a Angio cath: 22 gauge. RADIOLOGY DEPARTMENT: CT; Exam(s) Completed: Abdomen/Pelvis SIGNATURE: RT Alison(R) PATIENT NAME: Zi Chance DATE: March 14, 2022 TIME: 1:30 PM documented in this encounter [facility] 02-24-2022 History of Present illness Narrative CHIEF COMPLAINT Patient presents with: Flank Pain HISTORY OF PRESENT ILLNESS Zi Chance is a 61 year old male who presents here today for follow up management of flank pain. I last saw this patient on 06/19/21. Flank Pain Patient continues to have pain in his right side. He has been to the urologist and had a few test run but they came back negative. The pain started after he came back from [place] (1 year ago) He says that he has trouble readjusting to foods. He says that it hurts before and after he eats, uses the bathroom and when he has sex. Health Maintenance Due for Shingrix series Due for COVID booster Due for depression screening. Labs reviewed. Past medical history, appointments, medications, allergies reviewed. REVIEW OF SYSTEMS Pertinent positives/ negatives: General: Feels well, no fever, no chills. HEENT: No sinus congestion, earache, sore throat. Cardiac: No chest pain, palpitations Resp: No cough, wheeze, shortness of breath GI: No reflux symptoms, food intolerance, bowel changes. +flank pain : No urinary frequency, dysuria. MS: No pain or joint complaints. PAST MEDICAL HISTORY PAST MEDICAL HISTORY Diagnosis Date Anxiety Dr. Neal Arthritis left shoulder, neck BPH (benign prostatic hyperplasia) Chest pain Colon polyps 07/2013 repeat in 3 years Environmental allergies Fatty liver disease, nonalcoholic Gluten intolerance Hyperlipidemia Hypothyroid IBS (irritable bowel syndrome) Migraines MAXIMILIANO (obstructive sleep apnea) on CPAP, Dr. Hanks Snoring PHYSICAL EXAMINATION BP 112/71 Pulse (!) 54 Ht 188 cm (6' 2 ) Wt 80.7 kg (178 lb) SpO2 99% BMI 22.85 kg/m General: Alert, well developed, well nourished, no distress, pleasant and cooperative. Heart: Regular rate and rhythm. Normal S1 and S2. No murmurs, rubs, or gallops. Lungs: Clear to auscultation bilaterally. No respiratory distress. No wheezes, rales, or rhonchi. Abdomen: Soft, non-tender, no distention. Mild pain without mass , not guarding but fairly tender. Extremities: Feet/ankles without edema, posterior tibial pulses full and symmetrical. Data Reviewed Latest Reference Range & Units 12/20/21 11:17 02/10/22 14:50 GLUCOSE UA (POCT) Negative mg/dL Negative BILIRUBIN UA (POCT) Negative Negative KETONE UA (POCT) Negative mg/dL Negative SPECIFIC GRAVITY UA (POCT) 1.005 - 1.030 1.025 HEMOGLOBIN/BLOOD UA (POCT) Negative Negative PH UA (POCT) 4.5 - 8.0 7.0 PROTEIN UA (POCT) Negative mg/dL Negative UROBILINOGEN UA (POCT) Normal E.U./dL 0.2 NITRITE UA (POCT) Negative Negative LEUKOCYTES UA (POCT) Negative Negative COLOR UA (POCT) Yellow CLARITY UA (POCT) Clear Atrial Rate BPM 49 Calculated P [place] degrees 42 Calculated R [place] degrees 3 Calculated T [place] degrees 30 P-R Interval ms 162 QRS Duration ms 78 QT Interval ms 444 QTC Calculation (Bazett) ms 401 Ventricular Rate BPM 49 Latest Reference Range & Units 09/13/21 12:15 PSA Screening <2.60 ng/mL 0.23 Latest Reference Range & Units 08/23/21 09:53 08/23/21 10:00 Sodium 136 - 144 mmol/L 141 142 Potassium 3.7 - 5.1 mmol/L 4.3 4.4 Chloride 97 - 105 mmol/L 105 106 (H) CO2 22 - 30 mmol/L 27 26 BUN 9 - 24 mg/dL 16 16 Creatinine 0.73 - 1.22 mg/dL 1.08 1.04 Glucose 74 - 99 mg/dL 82 81 Protein, Total 6.3 - 8.0 g/dL 7.9 Calcium 8.5 - 10.2 mg/dL 9.4 9.5 Albumin 3.9 - 4.9 g/dL 4.7 Bilirubin, Total 0.2 - 1.3 mg/dL 0.7 Alkaline Phosphatase 38 - 113 U/L 75 ALT 10 - 54 U/L 26 AST 14 - 40 U/L 29 Anion Gap 9 - 18 mmol/L 9 10 eGFR- >60 >60 eGFR-All Other Races . >60 >60 Cholesterol, Total <200 mg/dL 157 Triglyceride <150 mg/dL 103 Fasting Time hrs 3 HDL Cholesterol >39 mg/dL 44 LDL Cholesterol <100 mg/dL 92 VLDL Cholesterol <30 mg/dL 21 TC:HDL Ratio <5.10 3.57 LDL:HDL Ratio <2.54 2.09 Non HDL Cholesterol <130 mg/dL 113 TSH 0.270 - 4.200 uU/mL 0.270 (H): Data is abnormally high Latest Reference Range & Units 07/18/21 09:25 GLUCOSE UA (POCT) Negative mg/dL Negative BILIRUBIN UA (POCT) Negative Negative KETONE UA (POCT) Negative mg/dL Negative SPECIFIC GRAVITY UA (POCT) 1.005 - 1.030 1.025 HEMOGLOBIN/BLOOD UA (POCT) Negative Trace-intact ! PH UA (POCT) 4.5 - 8.0 7.0 PROTEIN UA (POCT) Negative mg/dL Negative UROBILINOGEN UA (POCT) Normal E.U./dL 0.2 NITRITE UA (POCT) Negative Negative LEUKOCYTES UA (POCT) Negative Negative COLOR UA (POCT) Yellow CLARITY UA (POCT) Clear !: Data is abnormal Assessment/Plan (R10.31) Right lower quadrant abdominal pain (primary encounter diagnosis) (Z13.89) Nephropathy screen Comment: continued right flank pain with unknown cause, the non contrast CT does not rule out an abdominal process outside the kidney, abscess. Consider some osrt of post hernia repair issue. Plan: CT ABD/PEL W IVCON, CONSULT TO GENERAL SURGERY, CREATININE BLD (F41.8) Situational anxiety Comment: well controlled Plan: continue on current regimen Requested Prescriptions Signed Prescriptions Disp Refills iv contrast (will be provided with radiology test) 1 Each 0 Sig: CT ABD/PEL -Inject, intravenously, once for 1 dose.No IV access, insert saline lock prior to the beginning of sedation, infusion, injection of imaging exam. Discontinue saline lock post exam. If Pt. has a central line or IVAD, may access for administration according to line specific nursing protocol. Once exam is complete flush line and de-access according to line specific nursing protocol in the CT contrast administration guidelines link. enteric contrast (will be provided with radiology test) 1 Each 0 Sig: For CT ABD/PEL W IVCON Routine order Administer, As Directed One Time Only, via Oral, Rectal, both Oral and Rectal, Enteric Tube, Stoma or Indwelling Catheter, Enteric Contrast as designated per enteric contrast guidelines RTO: PRN Scribe Attestation: By signing my name below, IAngelina, attest that this documentation has been prepared under the direction and in the presence of Girish Shook M.D. Electronically Signed: Justino Dunham. February 24, 2022 8:30 AM Provider Attestation: IAgata MD, personally performed the services described in this documentation. All medical record entries made by the scribe were at my direction and in my presence. I have reviewed the chart and discharge instructions (if applicable) and agree that the record reflects my personal performance and is accurate and complete. Electronically Signed: Agata Shook MD February 24, 2022 3:55 PM documented in this encounter [facility] 02-21-2022 History of Present illness Narrative Episode Visit Count: 2 Therapist That Will Oversee The Plan Of Care: Maribel Brasher Start of Care Date: 02/14/22 Onset Date: 04/16/21 Plan of Care Certification Date: 02/14/22 Next Certification Due Date: 04/15/22 Patient Identified by Name and Date of : Yes REHABILITATION AND SPORTS THERAPY PHYSICAL THERAPY TREATMENT NOTE ASSESSMENT: Zi Chance tolerated the session with decreased symptoms. He demonstrated difficulty with unchanged pain levels and bladder function. The patient will continue to benefit from ongoing skilled physical therapy to progress toward set goals. PLAN FOR NEXT VISIT: PF mm assessment, continue manual work SUBJECTIVE: Patient Reason for Visit: Pt reports no change in pain or bladder function since last session. Pt reports attempting toileting techniques to empty bladder but does not notice any changes. Pt reports good compliance with HEP. Pain: Pain Pain Level: 4 Pain Location: Abdomen (R side) Description: Aching;Dull Frequency: Continuous Post Treatment Pain Post Treatment Pain Level: 2 OBJECTIVE MEASURES WITH LEVEL OF FUNCTION: Pelvic Floor Difficulty starting stream: No Incomplete emptying: Sometimes Pelvic Floor Muscle Assessment Consent for pelvic assessment/testing and treatment: Patient was educated regarding pelvic floor physical therapy assessment/treatment which may include pelvic floor and girdle muscle assessment externally or internally (vaginal or rectal approach).;Patient verbalized consent for the above treatment approaches today. Patient understands they have control of the treatment and an opportunity to stop treatment at any time. (Internal PF mm assessment deferred due to pt request.) Pelvic Floor Manual Assessment External Pelvic Region Tenderness/ Hyperactivity - Trunk: Lower abdominals;Upper abdominals Upper abdominals: Right (1/1) Lower abdominals: Right (2/2) Tissue Restriction/Tenderness Scale: 1= mild, 2= moderate, 3= severe TREATMENT: Therapeutic Exercise: 1: *piriformis stretch, [id number] each 2: *supine 90/90 hamstring stretch, [id number] each 3: *prone abdominal stretch, [id number] Skilled Intervention: Patient was educated in proper exercise technique and purpose for exercises. Reviewed and educated patient on additions/changes for home exercise program as above (*). Skilled judgment was provided in selection of appropriate interventions. Provided written instruction for home exercise program to facilitate proper performance and compliance. Manual Therapy: 1: MFR to R upper and lower abdominals, supine Skilled Intervention: Manual skills to improve joint mobility, ROM, and decrease pain. Utilized anatomy knowledge of the therapist, and assessment of patient's response to intervention. Billing Therapeutic Exercise Treatment Minutes: 10 Manual TherapyTreatment Minutes: 20 Total Treatment Time Minutes (timed/untimed): 30 Maribel Brasher PT documented in this encounter [facility] 02-14-2022 History of Present illness Narrative Episode Visit Count: 1 Therapist That Will Oversee The Plan Of Care: Maribel Brasher Start of Care Date: 02/14/22 Onset Date: 04/16/21 Plan of Care Certification Date: 02/14/22 Next Certification Due Date: 04/15/22 Patient Identified by Name and Date of : Yes REHABILITATION AND SPORTS THERAPY PHYSICAL THERAPY EVALUATION PLAN OF CARE: Assessment: Zi Chance presents with chief complaint of R flank pain that interferes with bladder function;altered sexual function . He presents with impairments in decreased flexibility in B hamstrings; impaired bladder and sexual function. Pelvic floor muscle assessment deferred this date due to patient request. PROMIS (Patient-Reported Outcomes Measurement Information System) scores were unable to be reviewed. Prognosis for therapy is Good due to: current objective clinical presentation . He will benefit from skilled therapy services to meet the goals established for this plan of care as noted below. Goals for Episode of Care: created on 02/14/22 through 04/15/22 [place] in home exercise program. Patient will increase flexibility of B hamstrings to WNL to decrease pain. Incontinence: Patient to urinate 0-1 times per night Patient reports urgency is experienced less than baseline / initial evaluation Patient reports ability to start stream in less than 5 seconds Patient reports increased ability to fully empty bladder Pelvic Pain: Patient reports painfree intercourse Patient displays decreased muscle spasms in pelvic floor to allow for decreased pain levels-TBA Patient Goals: improve pain and bladder function Planned Interventions, Frequency, and Duration: Current Frequency: 1x/week Duration: 4 weeks (reassess at 4 weeks and progress as indicated) Total Number of Visits Planned: 4 Planned Treatment Interventions: Therapeutic exercise (24436);Manual therapy (69587);Self-group home management (53595);Patient/Family/Caregiver Education PLAN FOR NEXT VISIT: PF mm assessment, progress exercises as tolerated Patient demonstrates good understanding of plan of care and treatment. The above goals and plan of care were discussed and agreed upon by patient/family. SUBJECTIVE: Pt reports R flank pain began about 10 months ago insidiously. Pt reports all imaging has come back clear so far. Pt reports nothing makes pain better, everything makes pain worse. Patient Goals: improve pain and bladder function Functional Limitations: bladder function;altered sexual function Prior Level of Function: Independent without limitations PAST MEDICAL HISTORY Diagnosis Date Anxiety Dr. Neal Arthritis left shoulder, neck BPH (benign prostatic hyperplasia) Chest pain Colon polyps 07/2013 repeat in 3 years Environmental allergies Fatty liver disease, nonalcoholic Gluten intolerance Hyperlipidemia Hypothyroid IBS (irritable bowel syndrome) Migraines MAXIMILIANO (obstructive sleep apnea) on CPAP, Dr. Hanks Snoring PAST SURGICAL HISTORY Procedure Laterality Date APPENDECTOMY 12/1976 COLONOSCOPY X3 COLONOSCOPY FLX DX W/COLLJ SPEC WHEN PFRMD 07/20/2013 Colonoscopy COLONOSCOPY FLX DX W/COLLJ SPEC WHEN PFRMD 07/16/2018 Colonoscopy ESOPHAGOGASTRODUODENOSCOPY TRANSORAL DIAGNOSTIC 07/20/2013 EGD LAPAROSCOPY SURG CHOLECYSTECTOMY 11/21/11 Cholecystectomy, lap OTOPLASTY RHINOPLASTY 1994 RPR 1ST INGUN HRNA AGE 5 YRS/> REDUCIBLE 02/02/2019 Hernia repair, inguinal SEPTOPLASTY age 32, complicated by post op bleeding Relevant History Past Relevant Medical Conditions: (see note) Past Relevant Surgical Conditions: (see note) 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 Recreation / Current Exercise: hiking Hobbies / Interests: bird watching Intake Information: Prescription present Previous Treatment: NSAIDs Falls Interview: No positive findings with falls interview Aquatic Screen: No Pain: Pain Pain Level: 3 Pain Location: (R flank) Description: Aching;Dull Frequency: Continuous Post Treatment Pain Post Treatment Pain Level: Worse PROMIS Scales Higher is Better 06/17/2021 12/19/2021 GH Physical - Score 50.8 (Very Good) Incomplete GH Physical - Percentile 53 % - GH Mental - Score 50.8 (Very Good) 43.5 (Good) GH Mental - Percentile 53 % 26 % T-scores: mean of general population = 50. 5 points is clinically meaningfully difference Percentiles provide an indication of how the patient's score ranks in relation to the general population. Higher percentile rankings indicate better function/quality of life. 50th percentile is the average of the general population and indicates half of respondents had a worse score. T-scores: mean of general population = 50. 5 points is clinically meaningfully difference Percentiles provide an indication of how the patient's score ranks in relation to the general population. Higher percentile rankings indicate better function/quality of life. 50th percentile is the average of the general population and indicates half of respondents had a worse score. OBJECTIVE MEASURES WITH LEVEL OF FUNCTION: Pelvic Floor Pain with penetration: Pain during intercourse Erectile dysfunction: None reported. Urinary/Bowel History : Urinary History;Bowel History Difficulty starting stream: Yes Incomplete emptying: Sometimes Stress Incontinence: No Urgency: Sometimes Frequency of Urgency Episodes: every now and then Frequency of Leaks Secondary to Urge: 0 Nocturia (times per night): 2 Daytime Frequency (hours): 2 Fluid Intake: Water (8 oz measurements) Water : 8 Difficulty evacuating / Excessive Straining: No Incomplete emptying: No Bowel Movement Frequency: 1x/day Fecal incontinence: No Pelvic Floor Muscle Assessment Consent for pelvic assessment/testing and treatment: Patient was educated regarding pelvic floor physical therapy assessment/treatment which may include pelvic floor and girdle muscle assessment externally or internally (vaginal or rectal approach).;Patient verbalized consent for the above treatment approaches today. Patient understands they have control of the treatment and an opportunity to stop treatment at any time. (PF mm assessment deferred due to pt request.) Diaphragmatic Breathing : Fair Pelvic Floor Manual Assessment External Pelvic Region Tenderness/ Hyperactivity - Trunk: Lower abdominals Lower abdominals: Right (TTP) LE AROM R LE AROM: WFL L LE AROM: WFL LE Flexibility Flexibility: Hamstring Flexibility;Hip Adductor;Hip Internal Rotation Flexibility;Hip External Rotation Flexibility R Hamstring Flexibility: Min restrictions L Hamstring Flexibility: Min restrictions R Adductor Flexibility: WNL L Adductor Flexibility: WNL R Hip Internal Rotation Flexibility: WNL L Hip Internal Rotation Flexibility: WNL R Hip External Rotation Flexibility: WNL L Hip External Rotation Flexibility: WNL LE Strength Trunk Strength: Lower Abdominals: 5/5 (increased pain during testing) R LE Strength: 5/5 L LE Strength: 5/5 Education: Education Learning Preferences: Demonstration;Explanation;Perform ance;Printed Materials Barriers: None Learning/educational needs: Home exercise program;Plan of Care Education Provided: Yes, see treatment interventions for education provided Education Provided To: Patient Education Mode/Type: Demonstration;Explanation/Discuss ion;Literature/Printed Materials;Performance Response to Education/Teach Back: States/Identifies;Return Demonstration TREATMENT: PT Treatment Interventions: Therapeutic Exercise;Self-Halfway Management Evaluation Therapeutic Exercise: 1: *diaphragmatic breathing 2: *supine hip flexor stretch, [id number] each 3: *standing sidebend stretch, [id number] each Skilled Intervention: Patient was educated in proper exercise technique and purpose for exercises. Reviewed and educated patient on additions/changes for home exercise program as above (*). Skilled judgment was provided in selection of appropriate interventions. Provided written instruction for home exercise program to facilitate proper performance and compliance. Self-Halfway Management: 1: Reviewed pelvic floor anatomy and function with 3D pelvic model. 2: Reviewed typical vs dysfunctional bladder health 3: Reviewed bladder irritants, importance of water intake 4: Reviewed toileting techniques to fully empty bladder without straining, start a stream of urine 5: Reviewed urinary urgency suppression techniques 6: Reviewed impact of mm tension on pain 7: Reviewed strategies to improve nocturia Skilled Intervention: Skilled judgment in the selection of proper modification for activity of daily living/home management based on clinical presentation, deficits, and needs. Educated the patient regarding recommendations and provided written instruction to facilitate compliance. Billing * Evaluation Low Complexity: 1 Unit Therapeutic Exercise Treatment Minutes: 9 Self-Care/Home Management Treatment Minutes: 16 Total Treatment Time Minutes (timed/untimed): 41 Decreased visit time due to patient arriving late to appointment. Maribel Brasher PT documented in this encounter [facility] 02-10-2022 History of Present illness Narrative Images from the original note were not included. [facility] [place] Lynda Rios Department of Cardiovascular Medicine SECTION OF CARDIOVASCULAR IMAGING OUTPATIENT VISIT DATE February 10, 2022 OUTPATIENT VISIT TYPE ESTABLISHED PRIMARY CARE PHYSICIAN: Agata Shook [address] [place] [address] [place] [address] CHIEF COMPLAINT: No cardiac symptoms HISTORY OF PRESENT ILLNESS: Mr. Zi Chance is a 61yo M who presents for annual follow up. He was previously seen for ascending aortic dilation in the setting of pmhx of Hypothyroidism, anxiety, MAXIMILIANO (on CPAP), NAFLD, PVCs. He denies any family history of aneurysms/dissection. His brother did suffer SCD at the age of 65, 3 months after undergoing coronary stenting, though further details are unavailable. Mr. 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 Villar). At that time he underwent stress echocardiography which revealed no evidence of ischemia (though only reached 77% MPHR, no mets reported). Patient reports that they stopped him due to increasing PVCs. On the echo however he was incidentally found to have an ascending aortic size of 4.5cm. As such he underwent coronary CTA which revealed a bovine arch, mid ascending aortic diameter of 4.6cm, a calcium score of 51 AU, no significant epicardial stenoses. He was last seen in the office in December 2020 and the time of his last visit he was reassured about aortic dimensions and recommended continued surveillance. He underwent genetic testing and this was negative for any known mutations causing aortic aneurysm/dissection. Since last visit, Mr. Chance has been well and denies any ER visits or hospitalizations. He currently denies any chest pain/pressure/tightness, wt gain, orthopnea or PND. He does endorse occasional palpitations. Mr. Chance is currently not on any cardiac medications. PAST CARDIAC HISTORY: Mr. Chance was seen previously for ascending aortic dilation He was last seen in the office on December 28, 2020 PAST MEDICAL HISTORY Diagnosis Date Anxiety Dr. Neal Arthritis left shoulder, neck BPH (benign prostatic hyperplasia) Chest pain Colon polyps 07/2013 repeat in 3 years Environmental allergies Fatty liver disease, nonalcoholic Gluten intolerance Hyperlipidemia Hypothyroid IBS (irritable bowel syndrome) Migraines MAXIMILIANO (obstructive sleep apnea) on CPAP, Dr. Hanks Snoring PAST SURGICAL HISTORY Procedure Laterality Date APPENDECTOMY 12/1976 COLONOSCOPY X3 COLONOSCOPY FLX DX W/COLLJ SPEC WHEN PFRMD 07/20/2013 Colonoscopy COLONOSCOPY FLX DX W/COLLJ SPEC WHEN PFRMD 07/16/2018 Colonoscopy ESOPHAGOGASTRODUODENOSCOPY TRANSORAL DIAGNOSTIC 07/20/2013 EGD LAPAROSCOPY SURG CHOLECYSTECTOMY 11/21/11 Cholecystectomy, lap OTOPLASTY RHINOPLASTY 1994 RPR 1ST INGUN HRNA AGE 5 YRS/> REDUCIBLE 02/02/2019 Hernia repair, inguinal SEPTOPLASTY age 32, complicated by post op bleeding SOCIAL HISTORY Social History Tobacco Use Smoking status: Never Smokeless tobacco: Never Vaping Use Vaping Use: Never used Substance Use Topics Alcohol use: Yes Comment: 1 beer every 3-4 weeks Drug use: No FAMILY HISTORY Problem Relation Age of Onset Hypertension Mother Liver Disease Mother Heart Failure Father Allergies Sister Cancer Sister thyroid other (Other) Sister Breast Cancer Sister other (pinealoma) Sister Allergies Brother Arthritis Brother Heart Attack Brother at age 65 Diabetes Maternal Grandmother Heart Maternal Grandfather heart attack at age 72 Diabetes Paternal Grandmother Stroke Paternal Grandfather ALLERGIES: ALLERGIES Allergen Reactions Corticosteroids (Gl* Mental Status Change Dairy Aid [Lactase] Diarrhea Toradol [Ketorolac * Intolerance Restless -- crawling out of skin. MEDICATIONS: Current Outpatient Medications Medication Sig busPIRone (BUSPAR) 7.5 mg tablet Take 7.5 mg by mouth twice daily. clonazePAM (KLONOPIN) 0.5 mg tablet as needed. levothyroxine (SYNTHROID) 200 mcg tablet Take 1 tablet by mouth once daily. 30-60 minutes prior to breakfast. PREVALITE 4 gram packet Take 1 Packet by mouth once daily. hydrOXYzine HCl (ATARAX) 10 mg tablet Take 1 tablet by mouth three times daily as needed. hfipm-C-wkbkxpzdlknxl (BEANO ORAL) Take 1 tablet by mouth once daily. CPAP AutoPAP 15-20 cmH2O (change in settings) HUMIDITY. LIFETIME SUPPLIES. Dx:47.33. No current facility-administered medications for this visit. REVIEW OF SYSTEMS See HPI. The reminder of the review of systems is negative. PHYSICAL EXAMINATION: BP 124/77 (BP Site: Left Arm) Pulse (!) 50 Ht 188 cm (6' 2 ) Wt 78 kg (172 lb) SpO2 99% BMI 22.08 kg/m GEN: NAD, A+Ox3 EYES: EOMI, PERRL HENT: OP clear CV: RRR, no m/r/g, no LE edema PULM: CTAB ABD: Soft, NT, ND, NABS, no organomegaly, no obvious masses NEURO: CN2 -12 intact, 5/5 strength throughout MSK: Full ROM throughout SKIN: intact without gross abnormalities CARDIOVASCULAR MEDICINE TESTING: Electrocardiogram 02/10/2022 Echocardiogram 02/10/2022: Last ECHO Result Conclusion ECHO Collected: 02/10/2022 1:49 PM (Final result) Impression: CONCLUSIONS: - Exam indication: Dilated aorta - The left ventricle is normal in size. Left ventricular systolic function is normal. EF = 65 5% (2D biplane). Normal left ventricular diastolic function. - The right ventricle is normal in size. Right ventricular systolic function is normal. - The visualized aorta is dilated with a maximal dimension of 4.6 cm. - Estimated right ventricular systolic pressure is 24 mmHg consistent with normal pulmonary artery pressures. Estimated right atrial pressure is 8 mmHg based on IVC assessment. - Exam was compared with the prior echocardiographic exam performed on 12/28/2020. Mid ascending aorta diameter relatively unchanged in size. * * * Final * * * Coronary CTA: 08/2020 IMPRESSION: 1. There is very minimal coronary calcification with a calculated calcium score of 51AU, there is no significant atherosclerotic stenosis in the coronary artery system. The Coronary arteries have a normal origin and course. 2. The cardiac chamber sizes appear normal with normal thickness and function of the left ventricle, the calculated left ventricular ejection fraction is 70%. No significant valvular abnormalities noted. No significant pericardial effusions noted. 3. There is Ascending aorta aneurysm, with a maximal diameter of 4.6 cm, there is no evidence of acute aortic disease including dissection or significant atherosclerotic disease. 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 4. Recommend complete evaluation of the descending aorta and periodic monitoring of the Aortic aneurysm with optimized primary preventative therapy. 5. Otherwise negative cardiac CT without and with intravenous contrast. I have personally reviewed the Electrocardiogram and Echocardiogram. IMPRESSION: Mr. Zi Chance is a 60yo M who presents for annual follow-up regarding incidentally detected ascending aortic dilation. He has a pmhx of Hypothyroidism, anxiety, MAXIMILIANO (on CPAP), NAFLD, PVCs . I reviewed the EKG and echocardiogram that was done today and this showed stable dimensions of the mid ascending aorta (4.6 cm similar to CTA in August 2020). Recommend serial monitoring over time as well as screening of all first degree relatives (patient has 2 children) PLAN AND RECOMMENDATIONS: -Advised to monitor heart rate and blood pressure at home and if elevated contact my office. -Follow up in 1 year with repeat echocardiogram -Wt lifting/Activity Restriction <50lbs, or activities requiring breathhold/grunting. Hannah Rader MD CONTACT INFORMATION: Hannah Rader M.D., [facility] Department of Cardiovascular Medicine [facility] [place] [facility] Desk [id number] [place] [address] Office - [phone] extension [phone] Office E-mail: Appointments: [phone] -[phone] extension [phone] documented in this encounter [facility] 12-20-2021 History of Present illness Narrative Images from the original note were not included. [facility] UROLOGY ESTABLISHED PATIENT CLINIC NOTE PATIENT INFO: Zi Chance 60 year old PCP: Agata Shook MD UROLOGY DIAGNOSES: 1. Pelvic pain in male - ICD9: 789.09, ICD10: R10.2 (primary diagnosis) 2. Acute right flank pain - ICD9: 789.09, 338.19, ICD10: R10.9 HPI: Zi Chance returns for continuing evaluation and management. Patient continues to state that he has intermittent right flank pain which radiates into the right groin. He has not developed groin pain with ejaculation as well as when patient feels bladder is full. He has also some referred pain when he has a bowel movement. Patient states that he has a known history of irritable bowel syndrome. PMHx/PSHx: see above, otherwise unchanged Rx: reviewed and unchanged ROS: see above, otherwise unchanged Labs: None Imaging: MEDICATIONS: Current Outpatient Medications Medication Sig levothyroxine (SYNTHROID) 200 mcg tablet Take 1 tablet by mouth once daily. 30-60 minutes prior to breakfast. PREVALITE 4 gram packet Take 1 Packet by mouth once daily. hydrOXYzine HCl (ATARAX) 10 mg tablet Take 1 tablet by mouth three times daily as needed. busPIRone (BUSPAR) 5 mg tablet Take 5 mg by mouth twice daily. swsjo-E-asigkirncpcys (BEANO ORAL) Take 1 tablet by mouth once daily. CPAP AutoPAP 15-20 cmH2O (change in settings) HUMIDITY. LIFETIME SUPPLIES. Dx:47.33. meloxicam (MOBIC) 15 mg tablet Take 1 tablet by mouth once daily for 14 days. tamsulosin (FLOMAX) 0.4 mg TAKE 1 CAPSULE BY MOUTH ONCE DAILY Current Facility-Administered Medications Medication Dose Route Frequency perflutren lipid microspheres 1.3 mL in NaCl (PF) 0.9% 10 mL injection (DEFINITY) INTRAVENOUS DIRECTED PRN sodium chloride 0.9 % (flush) 10 mL (BD POSIFLUSH) 10 mL INTRAVENOUS DIRECTED PRN perflutren lipid microspheres 1.3 mL in NaCl (PF) 0.9% 10 mL injection (DEFINITY) INTRAVENOUS DIRECTED PRN sodium chloride 0.9 % (flush) 10 mL (BD POSIFLUSH) 10 mL INTRAVENOUS DIRECTED PRN PHYSICAL EXAM: Resp 18 Ht 188 cm (6' 2 ) Wt 83.1 kg (183 lb 1.6 oz) BMI 23.51 kg/m Body mass index is 23.51 kg/m . General: Well masculinized, well nourished male Psych: euthymic, NAD Neuro: A&Ox3 Inguinal: No lesions, adenopathy, or hernias Phallus: normal, circumcised, no lesions Meatus: orthotopic, patent, no discharge Scrotum: no lesions, normal rugae Testes: Descended, nontender, and no masses bilaterally Rectum/Tone: Normal size prostate without nodularity or tenderness. Normal anal sphincter tone. UROLOGICAL DATA: Urinalysis: URINE POC GLUCOSE UA (POCT) Negative 12/20/2021 BILIRUBIN UA (POCT) Negative 12/20/2021 KETONE UA (POCT) Negative 12/20/2021 SPECIFIC GRAVITY UA (POCT) 1.025 12/20/2021 HEMOGLOBIN/BLOOD UA (POCT) Negative 12/20/2021 PH UA (POCT) 7.0 12/20/2021 PROTEIN UA (POCT) Negative 12/20/2021 UROBILINOGEN UA (POCT) 0.2 12/20/2021 NITRITE UA (POCT) Negative 12/20/2021 LEUKOCYTES UA (POCT) Negative 12/20/2021 COLOR UA (POCT) Yellow 12/20/2021 CLARITY UA (POCT) Clear 12/20/2021 IMPRESSION/PLAN: 1. Pelvic pain in male - ICD9: 789.09, ICD10: R10.2 (primary diagnosis) -Likely due to Pelvic Floor dysfunction. Begin trial meloxicam 15 mg daily for the next 2 weeks. Refer to pelvic floor physical therapy for evaluation and treatment. 2. Acute right flank pain - ICD9: 789.09, 338.19, ICD10: R10.9 -Meloxicam may help this condition. Symptoms are intermittent. Reevaluate in 6 weeks Blaise Payton M.D, MS Associate Staff [facility] [place] [facility] documented in this encounter [facility] 12-20-2021 Nurse Note Right flank pain off and on for 2 months. No blood in urine. Cannot tolerated Flomax. September 06 CT scan. documented in this encounter [facility] 09-24-2021 History of Present illness Narrative IRB #[id number]/ Cardiac Disease Quality of Life PI: Dr. Regan Study Visit: 9 Month Follow Up I called the patient for the 9 month follow up for the Cardiac QOL Study. Reaffirmed that the patient still wishes to participate in the study and continues to consent to the study. Patient email address and phone number reaffirmed and updated. Has the patient had any hospitalizations (surgery or procedure) since the last study visit? No Treatments and Dates and Locations: NA Education provided: Follow up requirements/schedule Cardiac QOL 9 Month Survey completed per protocol and received back to on: Pending Patient has completed all study required procedures. Thanked patient for participating. [employer] Operator: Deidre Lucero [facility] Pager: [phone] documented in this encounter [facility] 07-18-2021 Note HNO ID: [id number] Author: KIRBY Burks Service: Radiology Author Type: Technologist Type: Progress Notes Filed: 07/18/2021 11:05 AM Note Text: Radiology Service Progress Note PATIENT NAME: Zi Chance DATE OF SERVICE: July 18, 2021 TIME: 11:05 AM PATIENT IDENTITY VERIFICATION COMPLETED USING TWO (2) IDENTIFIERS: Name and Date of confirmed by patient verbally. FALL SCREENING: Has the patient had 2 falls in the last year or 1 fall with injury or currently using an Ambulatory Assistive Device (Walker, Cane, Wheelchair, Crutches, etc.)? No PATIENT GENDER DATA: Male PATIENT RELEVANT IMPLANT DATA REVIEWED: Not Applicable RADIOLOGY DEPARTMENT: General X-ray: Exam(s) Completed: Abdomen X-Ray: Abdomen PERIPHERAL IV DATA: Not applicable SIGNED BY: KIRBY Burks July 18, 2021 11:05 AM [facility] documented as of this encounter (statuses as of 09/24/2021) [facility] History of Past illness Narrative* Problem Noted Date Resolved Date Intestinal bacterial overgrowth 06/23/2013 07/14/2017 Elevated TSH 06/08/2013 07/14/2017 Diarrhea 08/27/2011 07/14/2017 RLQ abdominal pain 08/27/2011 07/14/2017 documented as of this encounter (statuses as of 10/18/2021) [facility] History of Past illness Narrative* Problem Noted Date Resolved Date Intestinal bacterial overgrowth 06/23/2013 07/14/2017 Elevated TSH 06/08/2013 07/14/2017 Diarrhea 08/27/2011 07/14/2017 RLQ abdominal pain 08/27/2011 07/14/2017 documented as of this encounter (statuses as of 11/28/2021) [facility] History of Past illness Narrative* Problem Noted Date Resolved Date Intestinal bacterial overgrowth 06/23/2013 07/14/2017 Elevated TSH 06/08/2013 07/14/2017 Diarrhea 08/27/2011 07/14/2017 RLQ abdominal pain 08/27/2011 07/14/2017 documented as of this encounter (statuses as of 12/20/2021) [facility] History of Past illness Narrative* Problem Noted Date Resolved Date Intestinal bacterial overgrowth 06/23/2013 07/14/2017 Elevated TSH 06/08/2013 07/14/2017 Diarrhea 08/27/2011 07/14/2017 RLQ abdominal pain 08/27/2011 07/14/2017 documented as of this encounter (statuses as of 02/14/2022) [place] [address]-19-2013 History of Past illness Narrative* Problem Noted Date Resolved Date Intestinal bacterial overgrowth 06/23/2013 07/14/2017 Elevated TSH 06/08/2013 07/14/2017 Diarrhea 08/27/2011 07/14/2017 RLQ abdominal pain 08/27/2011 07/14/2017 documented as of this encounter (statuses as of 02/14/2022) [place] [address]-19-2013 History of Past illness Narrative* Problem Noted Date Resolved Date Intestinal bacterial overgrowth 06/23/2013 07/14/2017 Elevated TSH 06/08/2013 07/14/2017 Diarrhea 08/27/2011 07/14/2017 RLQ abdominal pain 08/27/2011 07/14/2017 documented as of this encounter (statuses as of 02/21/2022) [place] [address]-19-2013 History of Past illness Narrative* Problem Noted Date Resolved Date Intestinal bacterial overgrowth 06/23/2013 07/14/2017 Elevated TSH 06/08/2013 07/14/2017 Diarrhea 08/27/2011 07/14/2017 RLQ abdominal pain 08/27/2011 07/14/2017 documented as of this encounter (statuses as of 02/24/2022) [facility] History of Past illness Narrative* Problem Noted Date Resolved Date Intestinal bacterial overgrowth 06/23/2013 07/14/2017 Elevated TSH 06/08/2013 07/14/2017 Diarrhea 08/27/2011 07/14/2017 RLQ abdominal pain 08/27/2011 07/14/2017 documented as of this encounter (statuses as of 03/15/2022) [facility] History of Past illness Narrative* Problem Noted Date Resolved Date Intestinal bacterial overgrowth 06/23/2013 07/14/2017 Elevated TSH 06/08/2013 07/14/2017 Diarrhea 08/27/2011 07/14/2017 RLQ abdominal pain 08/27/2011 07/14/2017 documented as of this encounter (statuses as of 03/15/2022) [facility] History of Past illness Narrative* Problem Noted Date Resolved Date Intestinal bacterial overgrowth 06/23/2013 07/14/2017 Elevated TSH 06/08/2013 07/14/2017 Diarrhea 08/27/2011 07/14/2017 RLQ abdominal pain 08/27/2011 07/14/2017 documented as of this encounter (statuses as of 03/24/2022) [facility] History of Past illness Narrative* Problem Noted Date Resolved Date Intestinal bacterial overgrowth 06/23/2013 07/14/2017 Elevated TSH 06/08/2013 07/14/2017 Diarrhea 08/27/2011 07/14/2017 RLQ abdominal pain 08/27/2011 07/14/2017 documented as of this encounter (statuses as of 03/26/2022) [facility] History of Past illness Narrative* Problem Noted Date Resolved Date Intestinal bacterial overgrowth 06/23/2013 07/14/2017 Elevated TSH 06/08/2013 07/14/2017 Diarrhea 08/27/2011 07/14/2017 RLQ abdominal pain 08/27/2011 07/14/2017 documented as of this encounter (statuses as of 03/28/2022) [facility] History of Past illness Narrative* Problem Noted Date Resolved Date Intestinal bacterial overgrowth 06/23/2013 07/14/2017 Elevated TSH 06/08/2013 07/14/2017 Diarrhea 08/27/2011 07/14/2017 RLQ abdominal pain 08/27/2011 07/14/2017 documented as of this encounter (statuses as of 03/29/2022) [facility] History of Past illness Narrative* Problem Noted Date Resolved Date Intestinal bacterial overgrowth 06/23/2013 07/14/2017 Elevated TSH 06/08/2013 07/14/2017 Diarrhea 08/27/2011 07/14/2017 RLQ abdominal pain 08/27/2011 07/14/2017 documented as of this encounter (statuses as of 05/08/2022) [facility] History of Past illness Narrative* Problem Noted Date Resolved Date Intestinal bacterial overgrowth 06/23/2013 07/14/2017 Elevated TSH 06/08/2013 07/14/2017 Diarrhea 08/27/2011 07/14/2017 RLQ abdominal pain 08/27/2011 07/14/2017 documented as of this encounter (statuses as of 10/01/2022) [facility] History of Past illness Narrative* Problem Noted Date Resolved Date Intestinal bacterial overgrowth 06/23/2013 07/14/2017 Elevated TSH 06/08/2013 07/14/2017 Diarrhea 08/27/2011 07/14/2017 RLQ abdominal pain 08/27/2011 07/14/2017 documented as of this encounter (statuses as of 11/04/2022) [place] [address]19-2013 History of Past illness Narrative* Problem Noted Date Resolved Date Intestinal bacterial overgrowth 06/23/2013 07/14/2017 Elevated TSH 06/08/2013 07/14/2017 Diarrhea 08/27/2011 07/14/2017 RLQ abdominal pain 08/27/2011 07/14/2017 documented as of this encounter (statuses as of 11/05/2022) [place] [address]19-2013 History of Past illness Narrative* Problem Noted Date Resolved Date Intestinal bacterial overgrowth 06/23/2013 07/14/2017 Elevated TSH 06/08/2013 07/14/2017 Diarrhea 08/27/2011 07/14/2017 RLQ abdominal pain 08/27/2011 07/14/2017 documented as of this encounter (statuses as of 12/08/2022) [facility] History of Past illness Narrative* Problem Noted Date Resolved Date Intestinal bacterial overgrowth 06/23/2013 07/14/2017 Elevated TSH 06/08/2013 07/14/2017 Diarrhea 08/27/2011 07/14/2017 RLQ abdominal pain 08/27/2011 07/14/2017 documented as of this encounter (statuses as of 12/11/2022) [facility] History of Past illness Narrative* Problem Noted Date Resolved Date Intestinal bacterial overgrowth 06/23/2013 07/14/2017 Elevated TSH 06/08/2013 07/14/2017 Diarrhea 08/27/2011 07/14/2017 RLQ abdominal pain 08/27/2011 07/14/2017 documented as of this encounter (statuses as of 12/31/2022) [place] [address]-19-2013 History of Past illness Narrative* Problem Noted Date Diagnosed Date Resolved Date Intestinal bacterial overgrowth 06/23/2013 07/14/2017 Elevated TSH 06/08/2013 07/14/2017 Diarrhea 08/27/2011 07/14/2017 RLQ abdominal pain 08/27/2011 8 documented as of this encounter (statuses as of 01/13/2023) [address]19-2013 History of Past illness Narrative* Problem Noted Date Diagnosed Date Resolved Date Intestinal bacterial overgrowth 06/23/2013 07/14/2017 Elevated TSH 06/08/2013 07/14/2017 Diarrhea 08/27/2011 07/14/2017 RLQ abdominal pain 08/27/2011 8 documented as of this encounter (statuses as of 01/20/2023) [facility] History of Past illness Narrative* Problem Noted Date Diagnosed Date Resolved Date Intestinal bacterial overgrowth 06/23/2013 07/14/2017 Elevated TSH 06/08/2013 07/14/2017 Diarrhea 08/27/2011 07/14/2017 RLQ abdominal pain 08/27/2011 8 documented as of this encounter (statuses as of 02/04/2023) [facility] History of Past illness Narrative* Problem Noted Date Diagnosed Date Resolved Date Intestinal bacterial overgrowth 06/23/2013 07/14/2017 Elevated TSH 06/08/2013 07/14/2017 Diarrhea 08/27/2011 07/14/2017 RLQ abdominal pain 08/27/2011 8 documented as of this encounter (statuses as of 02/08/2023) [facility] History of Past illness Narrative* Problem Noted Date Diagnosed Date Resolved Date Intestinal bacterial overgrowth 06/23/2013 07/14/2017 Elevated TSH 06/08/2013 07/14/2017 Diarrhea 08/27/2011 07/14/2017 RLQ abdominal pain 08/27/2011 8 documented as of this encounter (statuses as of 02/27/2023) [facility] History of Past illness Narrative* Problem Noted Date Diagnosed Date Resolved Date Intestinal bacterial overgrowth 06/23/2013 07/14/2017 Elevated TSH 06/08/2013 07/14/2017 Diarrhea 08/27/2011 07/14/2017 RLQ abdominal pain 08/27/2011 8 documented as of this encounter (statuses as of 04/04/2023) [facility] History of Past illness Narrative* Problem Noted Date Diagnosed Date Resolved Date Intestinal bacterial overgrowth 06/23/2013 07/14/2017 Elevated TSH 06/08/2013 07/14/2017 Diarrhea 08/27/2011 07/14/2017 RLQ abdominal pain 08/27/2011 8 documented as of this encounter (statuses as of 04/22/2023) [facility] No data available for this section [facility] Evaluation note* Diagnosis Research study patient- Primary documented in this encounter [facility] note* Diagnosis Thoracic aortic aneurysm without rupture (HCC)- Primary Thoracic aneurysm without mention of rupture Family history of sudden cardiac Family history of sudden cardiac (SCD) PVC's (premature ventricular contractions) Other premature beats Mixed hyperlipidemia [facility] Diagnosis Pelvic pain in male- Primary Abdominal pain, other specified site Acute right flank pain Abdominal pain, unspecified site [facility]* Diagnosis Pelvic pain in male- Primary Abdominal pain, other specified site [facility]* Diagnosis Ascending aorta dilation (HCC)- Primary Thoracic aortic ectasia Mixed hyperlipidemia Agatston coronary artery calcium score less than 100 Nonspecific (abnormal) findings on radiological and other examination of other intrathoracic organs Family history of sudden cardiac Family history of sudden cardiac (SCD) [facility] Diagnosis Pelvic pain in male- Primary Abdominal pain, other specified site [facility] Diagnosis Right lower quadrant abdominal pain- Primary Abdominal pain, right lower quadrant Nephropathy screen Screening for nephropathy Situational anxiety Other anxiety states [facility] Diagnosis Right lower quadrant abdominal pain Abdominal pain, right lower quadrant [facility] Diagnosis Hypothyroidism, acquired Unspecified hypothyroidism [facility] Diagnosis Fatty liver- Primary Other chronic nonalcoholic liver disease [facility] Diagnosis Fatty liver- Primary Other chronic nonalcoholic liver disease [facility] Diagnosis Pelvic pain in male- Primary Abdominal pain, other specified site [facility] Diagnosis Fatty liver- Primary Other chronic nonalcoholic liver disease [facility] Diagnosis Autoimmune disease (HCC)- Primary Autoimmune disease, not elsewhere classified Positive ALAINA (antinuclear antibody) Other and unspecified nonspecific immunological findings Chronic abdominal pain Abdominal pain, unspecified site Positive double stranded DNA antibody test Other and unspecified nonspecific immunological findings SS-A antibody positive Other and unspecified nonspecific immunological findings Positive sm/SLUG PRESS OPERATOR antibody 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) documented in this encounter [facility] note* Diagnosis Hypothyroidism, acquired Unspecified hypothyroidism documented in this encounter [facility] note* Diagnosis Acquired dilation of ascending aorta and aortic root (HCC)- Primary documented in this encounter [facility] note* Diagnosis Aneurysm of ascending aorta without rupture (HCC)- Primary PVC's (premature ventricular contractions) Other premature beats Mixed hyperlipidemia documented in this encounter [facility] note* Diagnosis Acquired dilation of ascending aorta and aortic root (HCC) documented in this encounter [facility] for referral (narrative)* Outpatient Procedure (Routine) - Authorized Specialty Diagnoses / Procedures Referred By Contac t Referred To [facility] Diagnoses Thoracic aortic aneurysm without rupture (HCC) Family history of sudden cardiac PVC's (premature ventricular contractions) Mixed hyperlipidemia Procedures ECHO ECHO TTHRC R-T 2D W/WOM-MODE COMPL SPEC&[place] [address] [place] [address] [address] Referral ID Status Reason Start Date Expiration Date Visits Requested Visits Authorized [id number] Authorized Auto-Generat ed Referral 10/18/2021 10/18/2022 1 1 * Outpatient Procedure (Routine) - Authorized Specialty Diagnoses / Procedures Referred By Contac t Referred To [facility] Diagnoses Thoracic aortic aneurysm without rupture (HCC) Family history of sudden cardiac PVC's (premature ventricular contractions) Mixed hyperlipidemia Procedures ECG COMPLETE ECG ROUTINE ECG W/LEAST 12 LDS W/I&R Hannah Rader MD [address] [place] [address] [address] Referral ID Status Reason Start Date Expiration Date Visits Requested Visits Authorized [id number] Authorized Auto-Generat ed Referral 10/18/2021 10/18/2022 1 1 [facility] for referral (narrative)* Outpatient Procedure (Routine) - Closed Specialty Diagnoses / Procedures Referred By Contac t Referred To Contact [facility] Diagnoses Fatty liver Procedures DDI VIBRATION CONTROLLED TRANSIENT ELASTOGRAPHY (VCTE) LIVER ELASTOGRAPHY W/O IMAG W/I&R Mao Jones MD [id number] [place] [address] Referral ID Status Reason Start Date Expiration Date V isits Requested Visits Authorized [id number] Closed Auto-Generate d Referral 03/28/2022 03/28/2023 1 1 [facility] for referral (narrative)* Outpatient Procedure (Routine) - Authorized Specialty Diagnoses / Procedures Referred By Contac t Referred To Contact [facility] Diagnoses Acquired dilation of ascending aorta and aortic root (HCC) Procedures ECHO ECHO TTHRC R-T 2D W/WOM-MODE COMPL SPEC&COLR D Hannah Rader MD [id number] [place] [address] Referral ID Status Reason Start Date Expiration Date Visits Requested Visits Authorized [id number] Authorized Auto-Generat ed Referral 02/27/2023 02/27/2024 1 1 T [facility] for referral (narrative)* Outpatient Procedure (Routine) - Pending Review Specialty Diagnoses / Procedures Referred By Contac t Referred To [facility] Diagnoses Aneurysm of ascending aorta without rupture (HCC) Procedures ECHO ECHO TTHRC R-T 2D W/WOM-MODE COMPL SPEC&COLR D Rosaura MunozHOWIEN.GENERAL OFFICE ASSOCIATE [address] [place] [address] [facility] [address] [address] Referral ID Status Reason Start Date Expiration Date Visits Requested Visits Authorized [id number] Pending Review Auto-Generat ed Referral 04/03/2023 04/02/2024 1 1 * Outpatient Procedure (Routine) - Pending Review Specialty Diagnoses / Procedures Referred By Contac t [facility] Diagnoses Aneurysm of ascending aorta without rupture (HCC) PVC's (premature ventricular contractions) Procedures ECG COMPLETE ECG ROUTINE ECG W/LEAST 12 LDS W/I&R Rosaura Munoz APRN.DERECK [address] [place] [address] Formerly Named [facility] Vascular [address] [address] Referral ID Status Reason Start Date Expiration Date Visits Requested Visits Authorized [id number] Pending Review Auto-Generat ed Referral 04/03/2023 04/02/2024 1 1 [facility] for visit Narrative* Outpatient Procedure (Routine) - Closed Specialty Diagnoses / Procedures Referred By Contac t Referred To Contact [facility] Diagnoses Fatty liver Procedures DDI VIBRATION CONTROLLED TRANSIENT ELASTOGRAPHY (VCTE) LIVER ELASTOGRAPHY W/O IMAG W/I&R Mao Jones MD [id number] [facility] Disease [place] [id number] Referral ID Status Reason Start Date Expiration Date V isits Requested Visits Authorized [id number] Closed Auto-Generate d Referral 03/28/2022 03/28/2023 1 1 [facility] note* NATALIA Serrato: PERFORM Event Display: Patient Summary Documents Authored Date: [id number] [facility] Summary Purpose Family History No Family History Records FoundNo Family History Records FoundNo Family History Records FoundNo Family History Records FoundNo Family History Records Found Advance Directives No Advanced Directives Records FoundDocuments on File Type Date Recorded Patient Pediatric Ophthalmologist Expl anation Advance Directive(s) 08/10/2020 8:09 AM Advance Directive(s) 02/02/2019 1:16 PM Advance Directive(s) 07/16/2018 9:26 AM Documents on File Type Date Recorded Patient Pediatric Ophthalmologist Expl anation Advance Directive(s) 08/10/2020 8:09 AM Advance Directive(s) 02/02/2019 1:16 PM Advance Directive(s) 07/16/2018 9:26 AM Reason for Referral Specialty Diagnoses / Procedures Referred By Contac t Referred To Contact [facility] Diagnoses Pelvic pain in male Procedures CONSULT TO PHYSICAL THERAPY [facility] 45 MINS Blaise Payton MD [address] [place] [address] [place] [id number] Referral ID Status Reason Start Date Expiration Date Visits Requested Visits Authorized [id number] Pending Review Auto-Generat ed Referral 12/20/2021 12/20/2022 1 1 Specialty Diagnoses / Procedures Referred By Contac t Referred To Contact General Surgery Diagnoses Right lower quadrant abdominal pain Procedures CONSULT TO GENERAL SURGERY OFFICE/OUTPATIENT [facility] 60-74 MINUTES Agata Shook MD [address] [place] [address] Referral ID Status Reason Start Date Expiration Date Visits Requested Visits Authorized [id number] Authorized PCP Requested Referral 02/24/2022 02/24/2023 1 1 Specialty Diagnoses / Procedures Referred By Contac t Referred To Contact CT IMAGING Diagnoses Right lower quadrant abdominal pain Procedures CT ABD/PEL W IVCON CT ABD & PELVIS W/CONTRAST Agata Shook MD [address] [place] [address] Ct Imaging Referral ID Status Reason Start Date Expiration Date Visits Requested Visits Authorized [id number] Authorized Auto-Generat ed Referral 02/24/2022 04/10/2022 1 1 Referral ID Status Reason Start Date Expiration Date V isits Requested Visits Authorized [id number] Closed Auto-Generate d Referral 02/24/2022 04/10/2022 1 1 Specialty Diagnoses / Procedures Referred By Theresa brasher Referred To Contact Rheumatology Diagnoses Autoimmune disease (HCC) Positive ALAINA (antinuclear antibody) Chronic abdominal pain Positive double stranded DNA antibody test SS-A antibody positive Positive sm/SLUG PRESS OPERATOR antibody 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) Procedures CONSULT TO RHEUM/IMMUN DISEASE OFFICE/OUTPATIENT [facility] 60-74 MINUTES Agata Shook MD [address] [place] [address] Referral ID Status Reason Start Date Expiration Date Visits Requested Visits Authorized [id number] Authorized PCP Requested Referral 01/19/2023 01/19/2024 1 1 Additional Source Comments (unrecognized sect ion and content) No Status Records FoundNo Status Records FoundNo Status Records FoundNo Status Records FoundNo Status Records Found INFORMATION SOURCE (unrecogn ized section and content) DATE CREATED AUTHOR AUTHOR'S ORGANIZ ATION 03/13/2022 [facility] DATE CREATED AUTHOR AUTHOR'S ORGANIZ ATION 07/09/2022 [facility] DATE CREATED AUTHOR AUTHOR'S ORGANIZ ATION 10/08/2022 [facility] DATE CREATED AUTHOR AUTHOR'S ORGANIZ ATION 07/10/2023 [facility] Source Comments (unrecognize d section and content) In the event this informatio n is protected by the Federal Confidentiality of Alcohol and Drug Abuse Patient Records regulations: The Federal rules restrict any use of the information to criminally investigate or prosecute any alcohol or drug abuse patient.[facility] CenterIn the event this information is protected by the Federal Confidentiality of Alcohol and Drug Abuse Patient Records regulations: The Federal rules restrict any use of the information to criminally investigate or prosecute any alcohol or drug abuse patient.[facility] CenterIn the event this information is protected by the Federal Confidentiality of Alcohol and Drug Abuse Patient Records regulations: The Federal rules restrict any use of the information to criminally investigate or prosecute any alcohol or drug abuse patient.[facility] CenterIn the event this information is protected by the Federal Confidentiality of Alcohol and Drug Abuse Patient Records regulations: The Federal rules restrict any use of the information to criminally investigate or prosecute any alcohol or drug abuse patient.[facility] CenterIn the event this information is protected by the Federal Confidentiality of Alcohol and Drug Abuse Patient Records regulations: The Federal rules restrict any use of the information to criminally investigate or prosecute any alcohol or drug abuse patient.[facility] CenterIn the event this information is protected by the Federal Confidentiality of Alcohol and Drug Abuse Patient Records regulations: The Federal rules restrict any use of the information to criminally investigate or prosecute any alcohol or drug abuse patient.[facility] CenterIn the event this information is protected by the Federal Confidentiality of Alcohol and Drug Abuse Patient Records regulations: The Federal rules restrict any use of the information to criminally investigate or prosecute any alcohol or drug abuse patient.[facility] CenterIn the event this information is protected by the Federal Confidentiality of Alcohol and Drug Abuse Patient Records regulations: The Federal rules restrict any use of the information to criminally investigate or prosecute any alcohol or drug abuse patient.[facility] CenterIn the event this information is protected by the Federal Confidentiality of Alcohol and Drug Abuse Patient Records regulations: The Federal rules restrict any use of the information to criminally investigate or prosecute any alcohol or drug abuse patient.[facility] CenterIn the event this information is protected by the Federal Confidentiality of Alcohol and Drug Abuse Patient Records regulations: The Federal rules restrict any use of the information to criminally investigate or prosecute any alcohol or drug abuse patient.[facility] CenterIn the event this information is protected by the Federal Confidentiality of Alcohol and Drug Abuse Patient Records regulations: The Federal rules restrict any use of the information to criminally investigate or prosecute any alcohol or drug abuse patient.[facility] CenterIn the event this information is protected by the Federal Confidentiality of Alcohol and Drug Abuse Patient Records regulations: The Federal rules restrict any use of the information to criminally investigate or prosecute any alcohol or drug abuse patient.[facility] CenterIn the event this information is protected by the Federal Confidentiality of Alcohol and Drug Abuse Patient Records regulations: The Federal rules restrict any use of the information to criminally investigate or prosecute any alcohol or drug abuse patient.[facility] CenterIn the event this information is protected by the Federal Confidentiality of Alcohol and Drug Abuse Patient Records regulations: The Federal rules restrict any use of the information to criminally investigate or prosecute any alcohol or drug abuse patient.[facility] CenterIn the event this information is protected by the Federal Confidentiality of Alcohol and Drug Abuse Patient Records regulations: The Federal rules restrict any use of the information to criminally investigate or prosecute any alcohol or drug abuse patient.[facility] CenterIn the event this information is protected by the Federal Confidentiality of Alcohol and Drug Abuse Patient Records regulations: The Federal rules restrict any use of the information to criminally investigate or prosecute any alcohol or drug abuse patient.[facility] CenterIn the event this information is protected by the Federal Confidentiality of Alcohol and Drug Abuse Patient Records regulations: The Federal rules restrict any use of the information to criminally investigate or prosecute any alcohol or drug abuse patient.[facility] CenterIn the event this information is protected by the Federal Confidentiality of Alcohol and Drug Abuse Patient Records regulations: The Federal rules restrict any use of the information to criminally investigate or prosecute any alcohol or drug abuse patient.[facility] CenterIn the event this information is protected by the Federal Confidentiality of Alcohol and Drug Abuse Patient Records regulations: The Federal rules restrict any use of the information to criminally investigate or prosecute any alcohol or drug abuse patient.[facility] CenterIn the event this information is protected by the Federal Confidentiality of Alcohol and Drug Abuse Patient Records regulations: The Federal rules restrict any use of the information to criminally investigate or prosecute any alcohol or drug abuse patient.[facility] CenterIn the event this information is protected by the Federal Confidentiality of Alcohol and Drug Abuse Patient Records regulations: The Federal rules restrict any use of the information to criminally investigate or prosecute any alcohol or drug abuse patient.[facility] CenterIn the event this information is protected by the Federal Confidentiality of Alcohol and Drug Abuse Patient Records regulations: The Federal rules restrict any use of the information to criminally investigate or prosecute any alcohol or drug abuse patient.[facility] CenterIn the event this information is protected by the Federal Confidentiality of Alcohol and Drug Abuse Patient Records regulations: The Federal rules restrict any use of the information to criminally investigate or prosecute any alcohol or drug abuse patient.[facility] CenterIn the event this information is protected by the Federal Confidentiality of Alcohol and Drug Abuse Patient Records regulations: The Federal rules restrict any use of the information to criminally investigate or prosecute any alcohol or drug abuse patient.[facility] CenterIn the event this information is protected by the Federal Confidentiality of Alcohol and Drug Abuse Patient Records regulations: The Federal rules restrict any use of the information to criminally investigate or prosecute any alcohol or drug abuse patient.[facility] CenterIn the event this information is protected by the Federal Confidentiality of Alcohol and Drug Abuse Patient Records regulations: The Federal rules restrict any use of the information to criminally investigate or prosecute any alcohol or drug abuse patient.[facility] CenterIn the event this information is protected by the Federal Confidentiality of Alcohol and Drug Abuse Patient Records regulations: The Federal rules restrict any use of the information to criminally investigate or prosecute any alcohol or drug abuse patient.[facility] CenterIn the event this information is protected by the Federal Confidentiality of Alcohol and Drug Abuse Patient Records regulations: The Federal rules restrict any use of the information to criminally investigate or prosecute any alcohol or drug abuse patient.[facility] CenterIn the event this information is protected by the Federal Confidentiality of Alcohol and Drug Abuse Patient Records regulations: The Federal rules restrict any use of the information to criminally investigate or prosecute any alcohol or drug abuse patient.[facility] Care Teams (unrecognized sec tion and content) Keeper Helper Relationship Specialty Start Date End Date Agata Shook MD [address] [facility] [address] [place], [place] [id number] PCP - General Family Practice 12/07/20 Keeper Helper Relationship Specialty Start Date End Date Agata Shook MD [address] [place] [address] [place], [place] [id number] PCP - General Family Practice 12/07/20 Keeper Helper Relationship Specialty Start Date End Date Agata Shook MD [address] [place] [address] [address] [place], [place] [id number] PCP - General Family Practice 12/07/20 Hannah Rader MD [address] [place] [address] Primary Staff Physician Cardiology 02/10/22 Keeper Helper Relationship Specialty Start Date End Date Agata Shook MD [address] [place] [address] [address] [place], [place] [id number] PCP - General Family Practice 12/07/20 Hannah Rader MD [address] [place] [address] Primary Staff Physician Cardiology 02/10/22 Keeper Helper Relationship Specialty Start Date End Date Agata Shook MD [address] [place] [address] [address] [place], [place] [id number] PCP - General Family Practice 12/07/20 Hannah Rader MD [address] [place], [place] [id number] Primary Staff Physician Cardiology 02/10/22 Keeper Helper Relationship Specialty Start Date End Date Agata Shook MD [address] [facility] [address] [place], [place] [id number] PCP - General Family Practice 12/07/20 Hannah Rader MD [address] [place] [address] Primary Staff Physician Cardiology 02/10/22 Keeper Helper Relationship Specialty Start Date End Date Agata Shook MD [address] [place] [address] [address] [place], [place] [id number] PCP - General Family Practice 12/07/20 Hannah Rader MD [address] [place], [place] [id number] Primary Staff Physician Cardiology 02/10/22 Keeper Helper Relationship Specialty Start Date End Date Agata Shook MD [address] [facility] [address] [place], [place] [address] PCP - General Family Practice 12/07/20 Hannah Rader MD [address] [place] [address] Primary Staff Physician Cardiology 02/10/22 Keeper Helper Relationship Specialty Start Date End Date Agata Shook MD [address] [facility] [address] [place], [place] 889171 PCP - General Family Practice 12/07/20 Hannah Rader MD [address] [place] [address] Primary Staff Physician Cardiology 02/10/22 Keeper Helper Relationship Specialty Start Date End Date Agata Shook MD [address] [place] [address] [address] [place], [place] [phone] PCP - General Family Medicine 12/07/20 Hannah Rader MD [address] [place], [place] [id number] Primary Staff Physician Cardiology 02/10/22 Keeper Helper Relationship Specialty Start Date End Date Agata Shook MD [address] [place] [address] [address] [place], [place] [phone] PCP - General Family Medicine 12/07/20 Hannah Rader MD [address] [place] [address] Primary Staff Physician Cardiology 02/10/22 Keeper Helper Relationship Specialty Start Date End Date Agata Shook MD [address] [place] [address] [address] [place], [place] [id number] PCP - General Family Medicine 12/07/20 Hannah Rader MD [address] [place] [address] Primary Staff Physician Cardiology 02/10/22 Keeper Helper Relationship Specialty Start Date End Date Agata Shook MD [address] [place] [address] [address] [place], [place] [id number] PCP - General Family Medicine 12/07/20 Hannah Rader MD [address] [place] [address] Primary Staff Physician Cardiology 02/10/22 Keeper Helper Relationship Specialty Start Date End Date Agata Shook MD [address] [place] [address] [address] [place], [place] [id number] PCP - General Family Medicine 12/07/20 Hannah Rader MD [address] [facility] [place] [address] Primary Staff Physician Cardiology 02/10/22 Keeper Helper Relationship Specialty Start Date End Date Agata Shook MD [address] [facility] [address] [place], [place] [address] PCP - General Family Medicine 12/07/20 Hannah Rader MD [address] [facility] [place], [place] [id number] Primary Staff Physician Cardiology 02/10/22 Keeper Helper Relationship Specialty Start Date End Date Agata Shook MD [address] [place] [address] [address] [place], [place] [phone] PCP - General Family Medicine 12/07/20 Hannah Rader MD [address] [facility] [place] [place] [id number] Primary Staff Physician Cardiology 02/10/22 Keeper Helper Relationship Specialty Start Date End Date Agata Shook MD [address] [facility] [address] [place], [place] [address] PCP - General Family Medicine 12/07/20 Hannah Rader MD [address] [place], [place] [id number] Primary Staff Physician Cardiology 02/10/22 Keeper Helper Relationship Specialty Start Date End Date Agata Shook MD [address] [facility] [address] [place], [place] [id number] PCP - General Family Medicine 12/07/20 Hannah Rader MD [address] [facility] [place], [place] [phone] Primary Staff Physician Cardiology 02/10/22 Keeper Helper Relationship Specialty Start Date End Date Agata Shook MD [address] [facility] [address] [place], [place] 3[address]41 PCP - General Family Medicine 12/07/20 Hannah Rader MD [address] [place] [address] Primary Staff Physician Cardiology 02/10/22 Keeper Helper Relationship Specialty Start Date End Date Agata Shook MD [address] [facility] [address] [place], [place] [address] PCP - General Family Medicine 12/07/20 Hannah Rader MD [address] [place], [place] [id number] Primary Staff Physician Cardiology 02/10/22 Keeper Helper Relationship Specialty Start Date End Date Agata Shook MD [address] [facility] [address] [place], [place] [address] PCP - General Family Medicine 12/07/20 Hannah Rader MD [address] [place] [address] Primary Staff Physician Cardiology 02/10/22 Keeper Helper Relationship Specialty Start Date End Date Agata Shook MD [address] [facility] [address] [place], [place] [address] PCP - General Family Medicine 12/07/20 Hannah Rader MD [address] [place] [address] Primary Staff Physician Cardiology 02/10/22 Keeper Helper Relationship Specialty Start Date End Date Agata Shook MD [address] [facility] [address] [place], [place] [address] PCP - General Family Medicine 12/07/20 Hannah Rader MD [address] [place] [address] Primary Staff Physician Cardiology 02/10/22 Keeper Helper Relationship Specialty Start Date End Date Agata Shook MD [address] [facility] [address] [place] [address] PCP - General Family Medicine 12/07/20 Hannah Rader MD [address] [place] [address] Primary Staff Physician Cardiology 02/10/22 Reason for Visit (unrecogniz ed section and content) Specialty Diagnoses / Procedures Referred By Theresa t Referred To Contact Cardiology / [facility] Diagnoses Dx: Ascending aorta dilation 1 year follow up - Echo Patient Called to Schedule Procedures ECHO TEST Hannah Rader MD [address] [place] [address] [address] Referral ID Status Reason Start Date Expiration Date Visits Re quested Visits Authorized [id number] Closed 04/03/2023 07/02/2023 [address] Specialty Diagnoses / Procedures Referred By Theresa t Referred To Contact CT IMAGING Diagnoses Right lower quadrant abdominal pain Procedures CT ABD/PEL W IVCON CT ABD & PELVIS W/CONTRAST Agata Shook MD [address] [facility] [place] [address] Ct Imaging Referral ID Status Reason Start Date Expiration Date V isits Requested Visits Authorized [id number] Closed Auto-Generate d Referral 02/24/2022 04/10/2022 1 1 Reason Comments Physical Therapy Specialty Diagnoses / Procedures Referred By Contac t Referred To Contact [facility] Diagnoses Pelvic pain in male Procedures CONSULT TO PHYSICAL THERAPY PHYSICAL THERAPY EVALUATION HIGH COMPLEX 45 MINS Blaise Payton MD [address] [place] [address] [facility] [place] [address] Referral ID Status Reason Start Date Expiration Date V isits Requested Visits Authorized [id number] Authorized 07/06/2021 07/05/2022 20 20 Reason Comments PT Eval Reason Comments Flank Pain Reason Comments Refill Request Reason Comments Appointment Reason Comments Established Patient Fatty Liver Follow U p Reason Comments Established Patient Reason Comments Fatty Liver Abdominal Pain- jeancarlos rds in Epic Reason Comments Outside Lab Results Celiac test [facility] Reason Comments Received Outside Medical Records [facility] Misc lab test 10/31/2022 Reason Comments Received Outside Medical Records [facility] Labs 12/05/2022 Reason Comments Outside Lab Results [facility]- Thrombin time Reason Comments Received Outside Medical Records [facility] 12/26/22 Reason Comments lupus Reason Onset Date Comments Refill Request 02/03/2023 FOR RECORDS PERTAINING TO PATIENTS WHO ARE OR HAVE BEEN ENROLLED IN A CHEMICAL DEPENDENCY/SUBSTANCEABUSE PROGRAM, SOME INFORMATION MAY BE OMITTED. This clinical summary was aggregated from multiple sources. Caution should be exercised in using it in the provision of clinical care. This summary normalizes information from multiple sources, and as a consequence, information in this document may materially change the coding, format and clinical context of patient data. In addition, data may be omitted in some cases. CLINICAL DECISIONS SHOULD BE BASED ON THE PRIMARY CLINICAL RECORDS. [employer] provides no warranty or guarantee of the accuracy or completeness of information in this document.
== END | disposition home or self-care (01) ==
PROVIDERS: PCP Family Medicine; Referring Provider Internal Medicine; Visit Provider Internal Medicine
DX: R10.9 Unspecified abdominal pain (principal); R19.7 Diarrhea, unspecified; K76.0 Fatty (change of) liver, not elsewhere classified
CPT/HCPCS: 76705; 76981

== ENCOUNTER 2023-10-12 05:52 | Day surgery (SDC) | payer OTHER, SELFPAY ==
--- NOTE | 2023-10-12 | COLBX_PTH ---
PATIENT: ZI CHANCE LOC: EN U#:[id number] AGE/SX: 62/M ROOM: RE10/12/[address]: Dr. Ki Guerrero DO : 1960 BED: DIS: 10/12/2023 SPEC #: [id number] RECD: 10/12/23 13:01 STATUS: TODD RICO #: [id number] GARRET: 10/12/23 00:[address]: Ki Guerrero DEPT: SURGICAL PATHOLOGY RECD BY: Pradip Becerra ENTERED: 10/12/23 13:01 SP TYPE: COLON BX KRISTINE DR: Dr. Girish [place] MD Tissues: Rectum, NOS Procedures: Surgery Specimen Level IV HEADER OPERATION: Colonoscopy, biopsy PRE-OP DIAGNOSIS: Encounter for screening for neoplasm of colon TISSUE SUBMITTED: Rectal polyp biopsy MICROSCOPIC DIAGNOSIS Rectal polyp, biopsy: Hyperplastic polyp. MÓNICA/ 10/13/23 MICROSCOPIC DESCRIPTION Slides are reviewed. GROSS DESCRIPTION Received in fixative is one container labeled with the patient's name and designated Rectal polyp biopsy. The specimen consists of one irregular fragment of light vieira soft tissue that measures 0.5 x 0.5 x 0.1 cm. The specimen is totally submitted in one cassette. BLAKE/ 10/12/23 TC:1 CPT:30362
[2023-10-12 06:24] VITALS: BP 118/72; PULSE 52; RESP 16; TEMP 36.8; O2SAT 100; BMI 24.0
[2023-10-12] MEDS: Lactated Ringers 1,000 ML 15 ML IV (06:30)
--- NOTE | 2023-10-12 07:09 | PCM.HP.BLA ---
History and Physical Date of Admission: 10/12/23 a 62 M who presents to the office today for follow up. FH mother with fatty liver progressing to suspected cirrhosis; siblings with fatty liver. PCP workup: CT abd/pel 05.16.20 for RLQ pain. Hepatic steatosis with hepatomegaly; normal spleen; s/p cholecystectomy and appendectomy; borderline retroperitoneal lymphadenopathy.; left inguinal hernia. US RUQ 07.03.20 hepatomegaly at 22.8cm with fatty infiltration; increased echogenicity of pancreas with hypoechoic nodular density 2.5x1.6x0.8cm of pancreatic head. CT with pancreatic protocol. *BGI established 10.31.22 right mid-abdominal pain that varies in intensity from moderate to severe; urination, defecation and sex all worsen the pain, but it is there consistently. BM typically loose stools with urgency and mucous; recently has been having hard stools with incomplete evacuation and continued increased frequency up to 6+/day. Notes recent COVID infection causing significant bloating and increased pain, this has improved. Reports he was established with [facility] and with weight loss had a reduction of hepatic stiffness. Biochemical CBC, ESR, coagulation, CMP, A1c, ferritin, LFT, ammonia, LDH, CRP, HIV, hepatitis, THA, AFP, GAME, CAROLYN, AMA, catecholamines, ceruloplasmin, copper, gastrin, haptoglobin, chromogranin A without pertinent abnormality. Celiac + TTG 5, SS-a 1.1, RNP1.1, anti-double strand DNA 11; Crohn?s+ (apANCA 1:640, Nathanael, ALCA, AMCA), cANCA H1:160, ASM H21 Urine catecholamines WNL Stool calprotectin, lactoferrin WNL US RUQ and elastography 11.14.22 hepatic measurement 21.1cm with fatty infiltration, stiffness 7.5kPa; increased pancreatic echogenicity Contact 11.04.22 with celiac and ALAINA abnormalities. Notes he has been gluten free for many years; will reevaluate diet, possible EGD versus capsule endoscopy. Notes ALAINA positive for 30+ years with no further investigation; refer to Dr. Doan for further workup of suspected lupus. Dr. Doan updated with most recent labs 11.10.22 noting suspected lupus and celiac, IBD and possible autoimmune liver disease. Contact 11.19.22 with results; Dr. Guerrero would like evaluation by Rheumatology prior to further recommendations. He is being seen 12.05.[address] Doan. OV 03.20.23 continues to have right sided abdominal pain, reflux and dysphagia. Dr. Doan has run tests ?that all came back positive? for ?this and that? celiac and immune mediated vasculitis and lupus; Dr. Doan has concern that his positive results were skewed by recent COVID infection () and is repeated these in April. 07.09.23: Right sided abdominal pain and diarrhea which is a chronic problem after he had gallbladder surgery and started on cholestyramine. His PCP gives prescription for cholestyramine aspartame. Patient states he does not like aspartame. He states when he does not take cholestyramine, he gets severe diarrhea therefore he does not want to get discontinued. Currently his bowel movement is controlled. Before the surgery he was found microscopic blood during dermatology workup and he is getting workup to rule out urological malignancy including like urine for cytology, CT abdomen probably ordered by outside urologist. No fever. Patient denies any recent change in medication for intake or food poisoning. ROS Const Constitutional: Positive for fatigue ENT ENT: No difficulty swallowing Gastro GI: Positive for abdominal pain and nausea/dyspepsia; No belching, bloating, change in bowel habits, change in stool character, coffee ground emesis, constipation, cramping, diarrhea, heartburn, difficulty swallowing, feeling full early, excessive flatus, incontinent of stools, Vomiting blood/hematemesis, Blood in stool, loose stools, Black,tarry stools, pain with swallowing, vomiting or other Musc Musculoskeletal: Positive for back pain, muscle cramps, sciatica and leg pain at night; No joint pain Skin Skin: No yellowing of the eye or itchy eyes Psych Psychiatric: Positive for anxiety and No depression Endo Endocrine: Positive for fatigue Aller/Imm Allergy/Immunologic: No itchy eyes David/Lymp Hematologic/Lymphatic: No easy bleeding or easy bruising Exam Const General: cooperative, no acute distress and well developed Nutritional Appearance: average body habitus Orientation: alert, awake and oriented x3 HENMT Head: normocephalic and atraumatic Nose: external nose normal Face and sinus: normal facial exam Mouth: moist mucous membranes Eyes Pupils: PERRL EOM: EOM intact bilaterally Neck Neck: normal visual inspection, no meningeal signs and trachea midline Carotids: no bruits Chest Chest palpation & inspection: normal inspection of the chest Resp Effort & Inspection: normal respiratory effort and symmetric chest movement Auscultation: Bilateral: Clear to Auscultation Cardio Palpation: normal PMI Rate: regular rate Rhythm: regular rhythm Heart Sounds: S1 normal and S2 normal GI Auscultation: normal bowel sounds Percussion: normal to percussion Palpation: soft and no guarding Other: Liver not enlarged below right costal margin. Spleen not palpable. Abdominal discomfort in nature. No tenderness guarding or rigidity. No peritoneal signs. No distention or fluid/ascites. General: bimanual renal exam normal bilaterally, bladder normal to inspection and bladder normal to palpation Musc Musculoskeletal: No joint tenderness, joint redness, joint warmth or decreased range of motion Thoracic/Lumbar Spine: thor and lumb spine abnorm to inspection Skin General: rashes and/or lesions noted, turgor normal and no erythema Wounds: wound noted Neuro General: patient alert, patient awake, patient oriented x3 and no focal motor deficits Speech: speech normal Motor: muscle tone normal throughout Extrem General: normal exam except as noted Psych Appearance: grossly normal Mood: congruent mood Affect: normal affect Attitude: cooperative Quality Reporting Tobacco Screening ([facility] 138) Smoking Status: Never smoker Assessment and Plan Assessment and Plan (1) Abdominal pain: Status: Chronic Qualifiers: Abdominal location: right upper quadrant Qualified Code(s): R10.11 - Right upper quadrant pain Plan: Patient complaining of abdominal pain which he has for 3 years. He states it is mild, constant, dull ache and and annoying. There is no change with the food or relationship with the diarrhea. Patient also has anxiety disorder and is on buspirone. I think pain is of more visceral in nature probably from IBS. Patient had CT abdomen /Pelvis with IV contrast in April 2020 and was reported normal bowel. I advised that patient can take 1 day cholestyramine but discontinue cholestyramine aspartame. Patient is going to have CT abdomen pelvis as urological l workup and advised to send a copy and images to our office to review it. Patient has elevated p-ANCA, antimyeloperoxidase antibody, ALAINA, anti-DNA and rheumatoid factor antibodies. Patient clinical features of liver arthritis or lupus and was evaluated by business development assistant Dr. Doan. Therefore no indication for treatment. Patient had last colonoscopy about 4-5 years ago, outside [facility] and we do not have report to review it. Medical record reviewed. Will need repeat colonoscopy, scheduled with Dr. Guerrero. (2) NAFLD (nonalcoholic fatty liver disease): Status: Chronic Plan: Contact last liver ultrasound and elastography in November 2022 which shows fatty infiltration liver enlargement 21 cm, liver stiffness median for 7.5 kPa. Increased pancreatic echogenicity. Patient is status postcholecystectomy. CBD 2.1 mm. NAFLD score -1.77 point correlates with fibrosis severity F0 to F2. But clinically patient is not obese BMI 24.3%, no diabetes or impaired glucose tolerance, A1c 5.1% in October 2022 and does not have cardiac or pulmonary chronic comorbidities. For now, exercise, healthy lifestyle avoiding salt, CANNED, frozen or fried foods advised. Orders: Orders ANCA 4 Months K76.0 - Fatty (change of) liver, not elsewhere classified, R10.9 - Unspecified abdominal pain, R19.7 - Diarrhea, unspecified Anti-Smooth Muscle ABS 4 Months K76.0 - Fatty (change of) liver, not elsewhere classified, R10.9 - Unspecified abdominal pain, R19.7 - Diarrhea, unspecified Anti-Mitochondrial AB 4 Months K76.0 - Fatty (change of) liver, not elsewhere classified, R10.9 - Unspecified abdominal pain, R19.7 - Diarrhea, unspecified Hemoglobin A1c 4 Months K76.0 - Fatty (change of) liver, not elsewhere classified, R10.9 - Unspecified abdominal pain, R19.7 - Diarrhea, unspecified CRP 4 Months K76.0 - Fatty (change of) liver, not elsewhere classified, R10.9 - Unspecified abdominal pain, R19.7 - Diarrhea, unspecified Lipid Profile 4 Months K76.0 - Fatty (change of) liver, not elsewhere classified, R10.9 - Unspecified abdominal pain, R19.7 - Diarrhea, unspecified Prothrombin Time w/INR 4 Months K76.0 - Fatty (change of) liver, not elsewhere classified, R10.9 - Unspecified abdominal pain, R19.7 - Diarrhea, unspecified Comprehensive Metabolic Profil 4 Months K76.0 - Fatty (change of) liver, not elsewhere classified, R10.9 - Unspecified abdominal pain, R19.7 - Diarrhea, unspecified AFP, Tumor Marker 4 Months K76.0 - Fatty (change of) liver, not elsewhere classified, R10.9 - Unspecified abdominal pain, R19.7 - Diarrhea, unspecified ABD Limited w/ Elastography 4 Months K76.0 - Fatty (change of) liver, not elsewhere classified, R10.9 - Unspecified abdominal pain, R19.7 - Diarrhea, unspecified ALAINA w/ Reflex Mult Confirm 3 Months R10.9 - Unspecified abdominal pain, R19.7 - Diarrhea, unspecified I have examined the patient and the H&P has been reviewed. There are no clinical changes since date of exam.
[2023-10-12 07:40] VITALS: BP 104/67; BP 118/72; PULSE 52; RESP 14; TEMP 36.2; O2SAT 100
--- NOTE | 2023-10-12 07:44 | OP.CCLET_ITS ---
10/12/2023 Girish Beaver Re : Colonoscopy procedure for Kartik Montilla Dear Sd This procedure was performed on Thursday, October 12, 2023. My impressions and recommendations are as follows: Impressions : - Segmental mild inflammation was found in the rectum secondary to colitis. Biopsied. - The examination was otherwise normal on direct and retroflexion views. Recommendations : - Discharge patient to home. - Resume previous diet. - Continue present medications. - Await pathology results. - Repeat colonoscopy in 5 years for surveillance. My findings are described in the full procedure note, which is enclosed. If I can be of further assistance, please feel free to contact me at . Sincerely, Ki Guerrero, 10/12/2023 7:43:48 AM This report has been signed electronically.
--- NOTE | 2023-10-12 07:44 | OP.COLON_ITS ---
Patient Name: Kartik Montilla Procedure Date: 10/12/2023 7:10 AM Date of : 1960 Age: 62 Procedure: Colonoscopy Indications: Screening for colorectal malignant neoplasm Providers: Ki Guerrero DO Medicines: Monitored Anesthesia Care Patient Profile: This is a 62 year old male. Refer to note in patient chart for documentation of history and physical. Last Colonoscopy: 5 years ago. Complications: No immediate complications. Procedure: Pre-Anesthesia Assessment: - Prior to the procedure, a History and Physical was performed, and patient medications and allergies were reviewed. The patient is competent. The risks and benefits of the procedure and the sedation options and risks were discussed with the patient. All questions were answered and informed consent was obtained. Patient identification and proposed procedure were verified by the physician in the pre-procedure area. Mental Status Examination: alert and oriented. Airway Examination: normal oropharyngeal airway and neck mobility. Respiratory Examination: clear to auscultation. CV Examination: normal. Prophylactic Antibiotics: The patient does not require prophylactic antibiotics. Prior Anticoagulants: The patient has taken no anticoagulant or antiplatelet agents. ASA Grade Assessment: II - A patient with mild systemic disease. After reviewing the risks and benefits, the patient was deemed in satisfactory condition to undergo the procedure. The anesthesia plan was to use monitored anesthesia care (MAC). Immediately prior to administration of medications, the patient was re-assessed for adequacy to receive sedatives. The heart rate, respiratory rate, oxygen saturations, blood pressure, adequacy of pulmonary ventilation, and response to care were monitored throughout the procedure. The physical status of the patient was re-assessed after the procedure. After I obtained informed consent, the scope was passed under direct vision. Throughout the procedure, the patient's blood pressure, pulse, and oxygen saturations were monitored continuously. The Colonoscope was introduced through the anus and advanced to the cecum, identified by appendiceal orifice and ileocecal valve. The colonoscopy was performed without difficulty. The patient tolerated the procedure well. The quality of the bowel preparation was adequate. The ileocecal valve, appendiceal orifice, and rectum were photographed. Scope In: 7:23:53 AM Scope Withdrawal Time 0 hours 7 minutes 58 seconds Scope Out: 7:36:09 AM Total Procedure Duration Time 0 hours 12 minutes 16 seconds Findings: The perianal and digital rectal examinations were normal. Segmental mild inflammation characterized by erythema was found in the rectum. Biopsies were taken with a cold forceps for histology. Verification of patient identification for the specimen was done. Estimated blood loss was minimal. The exam was otherwise without abnormality on direct and retroflexion views. Impression: - Segmental mild inflammation was found in the rectum secondary to colitis. Biopsied. - The examination was otherwise normal on direct and retroflexion views. Recommendation: - Discharge patient to home. - Resume previous diet. - Continue present medications. - Await pathology results. - Repeat colonoscopy in 5 years for surveillance. Procedure Code(s): --- Professional --- 14277, Colonoscopy, flexible; with biopsy, single or multiple CPT copyright 2021 [employer]. All rights reserved. The codes documented in this report are preliminary and upon ladler review may be revised to meet current compliance requirements. Ki Guerrero DO 10/12/2023 7:43:48 AM This report has been signed electronically. Number of Addenda: 0 Note Initiated On: 10/12/2023 7:10 AM
[2023-10-12 07:45] VITALS: BP 109/62; BP 118/72; PULSE 52; RESP 16; O2SAT 100
[2023-10-12 07:50] VITALS: BP 106/68; BP 118/72; PULSE 50; RESP 16; O2SAT 100
[2023-10-12 07:55] VITALS: BP 106/65; BP 118/72; PULSE 53; RESP 16; TEMP 36.6; O2SAT 100
[2023-10-12 08:16] VITALS: BP 118/72
== END 2023-10-12 08:18 | disposition home or self-care (01) ==
LOC: EN 05:52 → AC 05:53
PROVIDERS: PCP Family Medicine; Referring Provider Family Medicine; Visit Provider Internal Medicine Gastroenterology
PROC: 0DJD8ZZ Inspection of Lower Intestinal Tract, Via Natural or Artificial Opening Endoscopic (ICD-10-PCS; CPT 45378; principal; 2023-10-12 06:55)
DX: Z12.11 Encounter for screening for malignant neoplasm of colon (principal); K52.9 Noninfective gastroenteritis and colitis, unspecified; K62.1 Rectal polyp; E03.9 Hypothyroidism, unspecified; F41.9 Anxiety disorder, unspecified; Z79.899 Other long term (current) drug therapy
CPT/HCPCS: 45380; 88305; J7120; J2405

== ENCOUNTER → 2023-10-16 | Outpatient (CLI) | payer OTHER, SELFPAY ==
[2023-10-16 11:54] LABS: Absolute Lymphocyte Count 1.61 X10^3/uL (0.83-4.51); Absolute Neutrophil Count 3.5 X10^3/uL (2.0-7.7); Basophil# 0.02 X10^3/uL; Basophil% 0.3 % (0-1); Eosinophil# 0.17 X10^3/uL; Eosinophils% 2.9 % (0-5); Hematocrit 38.8 % (40-54); Hemoglobin 13.2 g/dL (13.0-16.5); Lymphocyte # 1.61 X10^3/ul (0.83-4.51); Lymphocyte % 27.3 % (19-41); Mean Corpuscular Hgb 30.6 pg (27.0-32.0); Mean Corpuscular Volume 89.8 fL (80-94); Monocyte# 0.58 X10^3/uL; Monocyte% 9.8 % (0-10); NRBC Flagged by Analyzer 0 % (0-5); Neutrophil # 3.51 X10^3/uL (2.7-7.7); Neutrophil % 59.5 % (47-70); Platelet Count 186 K/mm3 (150-450); RBC Distribution Width CV 12.4 % (11.6-14.6); RBC Distribution Width SD 40.6 fl (35.1-43.9); Red Blood Count 4.32 M/mm3 (4.6-6.2); White Blood Count 5.9 K/mm3 (4.4-11.0)
[2023-10-16 11:57] LABS: Color, Urine Yellow (Yellow); Glucose, Dipstick Normal (Normal); Ketone-Dipstick Negative (Negative); Leukocyte Esterase-Dipstick Negative /ul (Negative); Nitrite-Dipstick Negative (Negative); Occult Blood-Urine 25 /ul (Negative); Protein-Dipstick Negative (Negative); Specific Gravity, Urine 1.005 (1.002-1.030); Urine Bilirubin Dipstick Negative (Negative); Urine Clarity Clear (Clear); Urine Urobilinogen Normal (Normal)
[2023-10-16 12:08] LABS: Protein, Urine (Random) < 6.0 mg/dL (<11.9); Protein:Creat Ratio 89 mg/g CRE (0-200)
[2023-10-16 12:23] LABS: AST(SGOT) 23 U/L (15-37); Alanine Aminotransfer ALT/SGPT 37 U/L (16-61); Albumin, Serum 3.8 g/dL (3.2-5.0); Alkaline Phosphatase 68 U/L (45-117); Anion Gap 3 (5-15); BUN 17 mg/dL (7-18); BUN/Creat Ratio 14.2 RATIO (10-20); Chloride 105 mmol/L (98-107); EST Glomerular Filtration Rate 65 mL/min (>60); Est Glom Filt Rate - Afr Amer 78 mL/min (>60); Globulin 3.7 g/dL (2.2-4.2); Glucose 86 mg/dL (74-106); Potassium 4.5 mmol/L (3.5-5.1); Protein, Total 7.5 g/dL (6.4-8.2); Sodium Level 137 mmol/L (136-145)
== END | disposition home or self-care (01) ==
LOC: LAB 10:51
PROVIDERS: PCP Family Medicine; Referring Provider Internal Medicine Rheumatology; Visit Provider Internal Medicine Rheumatology
DX: R76.8 Other specified abnormal immunological findings in serum (principal); E03.9 Hypothyroidism, unspecified
CPT/HCPCS: 36415; 80053; 81002; 82570; 84156; 85025